=== PATIENT | female | born 1970 | race Caucasian/White ===

== ENCOUNTER 2016-11-21 14:28 | Emergency (ER) | payer MEDICAID ==
[~2016-11-21] VITALS: Ht 167.6 cm; Wt 86.2 kg
--- NOTE | 2016-11-21 14:45 | Emergency Room Report ---
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 PT REPORTS HEADACHE, L SHOULDER PAIN, AND UPPER BACK PAIN R/T FALL. PT DENIES LOC. 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 N Clinical Suspician of Infection? N Mental Status: 1 - Regular (Normal Baseline) Sepsis Risk:Low Sepsis Risk Have you (or family members/close friends) recently traveled outside the [place]? N If Yes, where/when: Have you had exposure to infectious disease within the past month? N TB? Other? Specify: ALLERGIES Coded Allergies: No Known Allergies (11/21/16) History Medical History General More? 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 Social History Smoking Hx Smoker: Unknown if Ever Smoked Tobacco: No Alcohol Alcohol: No Review of Systems All Other Systems Reviewed and Negative Musculoskeletal see HPI Psychiatric/Neurological pre-existing deficit Physical Exam Vital Signs Vital Signs Date Time Temp Pulse Resp B/P Pulse O2 O2 Flow FiO2 Ox Delivery Rate 11/21 1545 18 11/21 1544 78 20 113/57 98 11/21 1430 98.6 90 18 112/71 100 General Appearance normal appearance, WD/WN, no apparent distress (deaf; 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 No: respiratory distress, tender on palpation, use of accessory muscles, pain on inspiration, pain on expiration, productive cough, non productive cough. Lung Sounds bilateral: normal breath sounds, lungs clear. Cardiovascular normal exam, regular rate/rhythm, no peripheral edema, no gallop, no JVD, no murmur, no rub, normal peripheral pulses Gastrointestinal normal bowel sounds, normal exam, non tender, soft, no organomegaly, no pulsatile mass, abnormal bowel sounds, no guarding, no rebound Back normal inspection, no CVA tenderness, no vertebral tenderness, bowel/ bladder continent, strt leg raising(L)-NML, strt leg raising(R)-NML Extremities pelvis stable, subjective tenderness, left shoulder, but with excellent ROM and writes easily with her left hand. No crepitus, deformities, or stepoffs. , FROM all major joints, no rotation or shortening. Strength 5 Upper Ext (L), 5 Upper Ext (R), 5 Lower Ext (L), 5 Lower Ext (R) Neurologic alert (deaf baseline), normal exam, no motor/sensory deficits, oriented x 3 Glascow Coma Scale Glascow Coma Scale Response Value EYE response: 4 Spontaneously 4 MOTOR response: 6 OBEYS 6 VERBAL response: 5 Oriented & Converses 5 Total 15 Skin intact, normal color, warm/dry Medical Decision Making LABS/Meds/Orders Pt receiving controlled substance in ED? No Jono was queried for this patient? Yes Reference #: [id number] Risks/benefits of using a controlled substance for treatment were discussed w/pt by me Results/Orders Current Medication Orders Sig/Mohit Start time Last Medication Dose Route Stop Time Status Admin Ketorolac 0 .STK-MED ONE 11/21 1542 DC Tromethamine .ROUTE Ketorolac 60 MG ONCE ONE 11/21 1515 DC 11/21 Tromethamine IM 11/21 1516 1545 Orders Procedure Date/time Status DIET-NOTHING BY MOUTH 11/[address] SCAN REQ 11/[address] SCAN REQ 11/[address] HEAD REQ 11/[address] SCAN REQUEST 11/21 1430 Complete XRAY/CT/US XRAY/CT/US XRAY chest, shoulder, upper arm XR interpretation by reviewed by me, discussed w/radiologist Xray Results fx left ribs 9,10,11,[address] scan but not seen on plain films per Dr. Harris; shoulder, pelvis, humerus neg CT head, C-spine, T-spine, L-spine CT interpretation by reviewed by me, discussed w/radiologist Time results known: 153 CT Results Fx of L1 transverse process seen on T spine CT; will scan through L spine (FX L1-4 L xv processes) Progress ED Progress Notes Date 11/21/16 Time 1538 Comment C collar removed as C spine negative; kept logroll only due to L1 transverse process Fx noted on T spine CT per d/w radiologist; will scan through L spine. Departure Departure Time of Disposition 170 Disposition DC Home or Self Care(routine) Clinical Impression Primary Impression: Multiple fractures of ribs, left side, initial encounter for closed fracture Secondary Impressions: Fracture of transverse process of lumbar vertebra Qualifiers: Encounter type: initial encounter Fracture type: closed Qualified Code: S32.008A - Other fracture of unspecified lumbar vertebra, initial encounter for closed fracture Condition STABLE Referrals Doug WHITESIDE,Zeferino Acosta Patient Instructions DI for Rib Fracture, DI for Transverse Process Fracture Additional Instructions See Dr. Camacho in 1-2 days to recheck; Rx Percocet Discharge Counseling Counseled pt/family regarding diagnosis, test results, R/B of controlled subst., medications/RX, home care, follow up needs Prescriptions Current Visit Scripts OXYCODONE HCL/ACETAMINOPHEN (Percocet 7.5-325 MG Tablet) 1 TAB PO Q6HP PRN pain #20 TAB ED Critical Care Critical Care No at 170
--- OUTSIDE RECORDS SUMMARY | 2016-11-21 15:02 | External Medical Summary Rpt ---
Demographics Home Phone Preferred Language Sami Marital Status Unknown Mosque Affiliation Unknown Race Unknown Ethnic Group Unknown Author Author , Organization [employer] Address Unknown Phone Unavailable Care Team Providers Care Java Web Architect Name Role Phone DANICA LASHAE, DANICA Unavailable Unavailable LASHAE [employer] Unavailable Unavailable INC, [employer] [facility], Unavailable Unavailable [facility], [facility], [facility], Unavailable Unavailable [facility], [facility] Unavailable Unavailable LABORATORI, 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 Unavailable Unavailable LABORATORI, 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, [facility] AND Unavailable Unavailable [facility] Unavailable Unavailable [facility] Unavailable Unavailable [facility], [facility] Unavailable Unavailable [facility] & Unavailable Unavailable CRITICAL, [facility] JOHNSON BENITA, JOHNSON Unavailable Unavailable BENITA [facility] Unavailable Unavailable PHARMACY, [facility] BRIDGES AIDE, BRIDGES Unavailable Unavailable AIDE WILLS JAM, WILLS JAM Unavailable Unavailable RIZZO TEN, RIZZO TEN Unavailable Unavailable SALINAS CAR, SALINAS Unavailable Unavailable CAR [facility], Unavailable Unavailable [facility] Unavailable Unavailable INC, [facility] Unavailable Unavailable INC, [facility] Unavailable Unavailable [facility] Unavailable Unavailable PRACTI, [facility] Unavailable Unavailable [facility], [facility], Unavailable Unavailable [facility] CHAVA AIDE, CHAVA Unavailable Unavailable AIDE HERNANDO GIN, HERNANDO Unavailable Unavailable [facility], Unavailable [facility]available [facility], Unavailable [facility]available [facility] KATHYA DELORIS, KATHYA Unavailable Unavailable DELORIS SANTO TIM, Unavailable Unavailable SANTO TIM ESCOTT EDW, ESCOTT Unavailable Unavailable EDW [place] PAMELA, Unavailable Unavailable MI PAMELA TIMO NANNETTE, Unavailable Unavailable TIMO NANNETTE TIMO NANNETTE, Unavailable Unavailable TIMO NANNETTE FARAGASSO DEV, Unavailable Unavailable FARAGASSO DEV [facility] Unavailable Unavailable [facility]ATION [facility], [facility] BRADY CHRISTIANO, Unavailable Unavailable BRADY CHRISTIANO TEJEDA NAN, TEJEDA Unavailable Unavailable NAN SUMNER ZIA, SUMNER ZIA Unavailable Unavailable NOLAN TYRELL, Unavailable Unavailable NOLAN TYRELL [facility] Unavailable Unavailable [facility], [facility] Unavailable Unavailable [facility], [facility] DEE DEE GRE, DEE DEE GRE Unavailable Unavailable DEE DEE GRE, [facility] GRE Unavailable Unavailable GROSS CR, GROSS CR Unavailable Unavailable FRANK QUINTEN, FRANK Unavailable Unavailable QUINTEN HIGHLAND, HIGHLAND Unavailable Unavailable HIGHLAND LIS, Unavailable Unavailable [facility] Unavailable [facility], [facility] Unavailable Unavailable [facility], [facility] Unavailable Unavailable [facility], [facility] SAAD SARWAT, SAAD Unavailable Unavailable SARWAT RODERICK III, RODERICK Unavailable Unavailable III RODERICK III MIL, Unavailable Unavailable RODERICK III MIL [facility] Unavailable Unavailable [facility]AT, [facility] Unavailable Unavailable MEDICAL G, [facility] BARBARA JUAN, BARBARA JUAN Unavailable Unavailable KOSTELIC JACKI, Unavailable Unavailable KOSTELIC JACKI KOUNS CARIDAD, KOUNS CARIDAD Unavailable Unavailable [facility] # Unavailable Unavailable [id number], [facility] # [id number] [facility] Un[facility] Un[facility] Unavailable Unavailable [facility] TIEN DANILO, TIEN DANILO Unavailable Unavailable ALIVIA FAYETTE URBAN Unavailable Unavailable COGOVT, ALIVIA FAYETTE URBAN COGOVT [facility] Unavailable Unavailable COGOVT, ALIVIA FAYEE URBAN COGOVT AMARO AND, AMARO AND Unavailable Unavailable [facility] Unavailable Unavailable SERVICE, [facility] Unavailable Unavailable SERVICE, [facility] Unavailable Unavailable DEPT, [facility] Unavailable Unavailable DEPT, [facility], Unavailable Unavailable [facility], [facility] SHOSHANA HAM, SHOSHANA HAM Unavailable Unavailable SHOSHANA HAM, SHOSHANA HAM Unavailable Unavailable [facility] Unavailable Unavailable SERVICES, [facility] DOZIER JUAN, DOZIER Unavailable Unavailable JUAN CAMPOS CHRISTIANO, CAMPOS Unavailable Unavailable CHRISTIANO OVERBEE TER, OVERBEE Unavailable Unavailable TER P. CAB, P. CAB Unavailable Unavailable MADISYN RYA, MADISYN Unavailable Unavailable RYA [facility], Un[facility] Unavailable [facility] PICKLESIMER JR ORESTES, Unavailable Unavailable [facility] ANDRIA BILLY, ANDRIA Unavailable Unavailable BILLY ANDRIA BILLY, ANDRIA Unavailable Unavailable BILLY RAINS ALL, RAINS ALL Unavailable Unavailable [facility], [facility] Unavailable [facility] Unavailable Unavailable [facility], Unavailable Unavailable [facility] ORR CHR, ORR CHR Unavailable Unavailable MERLIN MAR, MERLIN MAR Unavailable Unavailable [facility], [facility] Unavailable Unavailable NETWORK, [facility] Unavailable Unavailable NETWORK, [facility], Unavailable Unavailable [facility], [facility] Unavailable Unavailable HARRISON ELIGIO, HARRISON Unavailable Unavailable ELIGIO TIKHTMAN MONA, Unavailable Unavailable TIKHTMAN MONA [facility] Unavailable Unavailable ASSIST, [facility], Unavailable Unavailable [facility] Unavailable Unavailable [place] [facility] VORKPOR JERI, VORKPOR Unavailable Unavailable JERI VORKPOR JERI, VORKPOR Unavailable Unavailable JERI [facility] # Unavailable Unavailable [id number], [facility] # [id number] PALACIOS, PALACIOS Unavailable Unavailable RANI IV ALL, Unavailable Unavailable RANI IV ALL WILP THE, WILP THE Unavailable Unavailable Purpose Continuity of Care Document - 02-20-2002 through 2016 Problems Code Diagnosis DOS Provider Status F39 Unspecified 11-09-2016 mood [affective] disorder G25.0 Essential 11-09-2016 tremor G40.909 Epilepsy, 11-09-2016 unspecified , not intractable , without status epilepticus H91.3 Deaf 11-09-2016 nonspeaking , not elsewhere classified M25.511 Pain in 11-09-2016 right shoulder N64.4 Mastodynia 11-09-2016 R51 Headache 11-09-2016 S00.03XA Contusion 11-09-2016 of scalp, initial encounter S01.01XA Laceration 11-09-2016 without foreign body of scalp, initial encounter Z86.61 Personal 11-09-2016 history of infections of the central nervous system Z87.820 Personal 11-09-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 R45.851 Suicidal 11-02-2016 ideations F63.9 Impulse 10-06-2016 disorder, unspecified S51.811A Laceration 10-06-2016 without foreign body of right forearm, initial encounter S51.812A Laceration 10-06-2016 without foreign body of left forearm, initial encounter X78.9XXA Intentional 10-06-2016 self-harm by unspecified sharp object, initial encounter Z23 Encounter 10-06-2016 for immunizatio n Z72.89 Other 10-01-2016 problems related to lifestyle R023TYI INTENTIONAL 10-01-2016 [facility] SELF-HARM PHYSICIANS UNS SHARP ASSIST OBJECT INIT ENC Z048 ENCOUNTER 10-01-2016 [facility] EXAM & PHYSICIANS OBSERVATION ASSIST OTHER SPEC REASONS R42 Dizziness 08-25-2016 and giddiness [id number] UNSPECIFIED 08-22-2016 ALIVIA FAYETTE INJURY OF URBAN HEAD COGOVT INITIAL ENCOUNTER J38505 EPILEPSY 08-08-2016 [facility] INTRACT W/O STATUS EPILEPTICUS T40994 PAIN IN 08-08-2016 [facility] [place] LEFT HAND [facility] [id number] UNSPECIFIED 08-08-2016 [facility] INJURY [facility] WRIST HAND FINGERS INITIAL E73EYSY UNSPECIFIED 08-08-2016 [facility] IN[facility] SERV ENCOUNTER Q32626 OTHER LONG 08-08-2016 [facility] CURRENT DRUG THERAPY Z309 ENCOUNTER 06-15-2016 [facility] FOR PRIMARY CONTRACEPTI CARE, [facility] VE MANAGEMENT UNS A90269 PRIMARY 01-14-2016 [facility] TIS RIGHT [place] SHOULDER K49723 PAIN IN 01-14-2016 [facility] SHOULDER ASSOC V31944 ENCOUNTER 12-08-2015 [facility] INVENTORY CONTROL CLERK EXAM [facility] W/O ABNORMAL FIND Z302 ENCOUNTER 12-08-2015 [facility] FOR [facility]IMARY STERILIZAT[facility] ON M48906 LOC-REL SX 09-28-2015 [facility] W/CPS NOT MEDICAL G INTRACT W/O SE R569 UNSPECIFIED 09-28-2015 [facility] CONVULSIONS MEDICAL G R05 COUGH 09-26-2015 [facility] R0602 SHORTNESS 09-24-2015 [facility] [place] OF BREATH RADIOLOGY K8020 CALCULUS GB 09-23-2015 [facility] [place] W/O RADIOLOGY CHOLECYSTIT IS W/O OBSTRUCTION I13592 EPILEPSY 09-21-2015 [facility] UNS NANNETTE INTRACTABLE W/O STATUS EPILEPTICUS R9401 ABNORMAL 09-21-2015 [facility] ELECTROENCE NANNETTE PHALOGRAM EEG Z3002 COUNSELING 06-19-2015 [facility] INSTRUCT PRIMARY NATURAL FAM CARE, [facility] PLAN AVOID PREG R4182 ALTERED 04-01-2015 ALIVIA FAYETTE MENTAL URBAN STATUS COGOVT UNSPECIFIED Z008 ENCOUNTER 04-01-2015 [facility] N EMERGENCY GENERAL SERV EXAMINATION X00788 PAIN IN 03-23-2015 [facility] UNSPECIFIED PRIMARY SHOULDER CARE, [facility] M609 MYOSITIS 03-19-2015 [facility] U[facility]PECIF[facility] M791 MYALGIA 03-19-2015 [facility] 38346 GENERALIZED 01-27-2015 [place] ANXIETY PRIMARY DISORDER CARE, [facility] 78681 UNSPEC 01-27-2015 [facility] EPILEPSY PRIMARY WITHOUT CARE, [facility] MENTION INTRACT EPILEPSY 3899 UNSPECIFIED 01-23-2015 [facility] LOSS 7802 SYNCOPE AND 01-23-2015 [place] [facility]SE [facility] 30981 OTHER 01-23-2015 [facility] 7804 DIZZINESS 01-23-2015 [facility] GIDDINESS 85819 OTHER 01-18-2015 [place] [facility] CONDITIONS SERV OF BRAIN [facility]OUND[facility] 4371 OTH 01-18-2015 [place] [facility] GENERALIZED SERV ISCHEMIC [facility] [place] CEREBROVASC ULAR DISEASE 02583 ALTERED 01-18-2015 ALIVIA FAYETTE MENTAL URBAN STATUS COGOVT 7840 HEADACHE 01-18-2015 ANDRIA BILLY 83675 LOC-REL 12-12-2014 [facility] EPILEPSY & NANNETTE ES W/SPS W/INTRACTAB LE EPIL V700 ROUTINE 12-12-2014 [facility] GENERAL NANNETTE MEDICAL EXAM@HEALTH CARE FACL 68572 PAIN IN 12-09-2014 [facility] [place] JOINT, RADIOLOGY SHOULDER REGION 7241 PAIN IN 12-09-2014 [facility] [place] THORACIC RADIOLOGY SPINE 66582 OBESITY, 12-01-2014 [place] PAIN UNSPECIFIED CARE & [facility] 7242 LUMBAGO 12-01-2014 [place] [facility] & [facility] V7109 OBSERVATION 12-01-2014 [place] PAIN OF OTHER CARE & SUSPECTED [facility] CONDITION 00461 NONSPECIFIC 11-20-2014 [facility] ABNORMAL [facility] PHALOGRAM 54681 IRRITABILIT 11-20-2014 [facility] Y [facility] V154 PERS HX 11-03-2014 [facility] FOR PSYCHOLOGIC PUBLIC HLTH AL TRAUMA PRS [facility] 2724 OTHER AND 09-26-2014 [facility] UNSPECIFIED PRIMARY CARE, [facility] HYPERLIPIDE GEOVANNA V2504 CNSL&INSTRC 09-17-2014 [facility] NATURAL FAM PLANNG AVOID PREG V258 OTHER 09-16-2014 [place] SPECIFIED PRIMARY CONTRACEPTI CARE, [facility] VE MANAGEMENT 7295 PAIN IN 08-15-2014 [facility] [place] SOFT RADIOLOGY TISSUES OF LIMB 8290 CLOSED 08-15-2014 [place] CO FRACTURE OF AMBULANCE SERVICE UNSPECIFIED BONE 83184 CONTUSION 08-15-2014 [facility] OF SH[facility]ER [facility] REGION MEDICAL 25063 CONTUSION 08-15-2014 [facility] JERI MULTIPLE SITES SHOULDER&UP PER ARM E9179 OTHER 08-15-2014 [facility]I STRIKING AGAINST W/WO SUBSEQUENT FALL 5990 URINARY 02-17-2014 [place] TRACT PRIMARY INFECTION CARE, [facility] SITE NOT SPECIFIED 7881 DYSURIA 02-17-2014 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 54376 URINARY 02-17-2014 [facility] FREQUENCY 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I 92152 02-17-2014 [facility] ION SER 97465 GEN CONVUL 02-09-2014 [facility] EPI[facility] PULMONARY & W/O MENTION CRITICAL INTRACT EPILEPSY 2762 ACIDOSIS 02-08-2014 [facility] 44981 DEHYDRATION 02-08-2014 [facility] V1581 PERS HX 02-08-2014 [facility] NONCOMPLIAN [facility] CE W/MED TX HOSP PRS [facility] 7197 DIFFICULTY 10-06-2013 HOME IN WALKING CONVALESCEN T [facility] INC 8249 UNSPECIFIED 10-06-2013 HOME OPEN CONVALESCEN FRACTURE OF T AIDS INC ANKLE V7241 08-27-2013 [facility] EXAMINATION [facility], [facility] OR TEST NEGATIVE RESULT 71499 PAIN IN 08-12-2013 [facility] H[facility] JOINT, ANKLE AND FOOT 90232 PAIN IN 06-04-2013 [place] JOINT, ORTHOPEDIC LOWER LEG ASSOCIAT 8441 SPRAIN AND 06-04-2013 [facility] STR[facility] OF ORTHOPEDIC MCL OF KNEE ASSOCIAT 21155 CONTUSION 05-31-2013 [place] OF THIGH PRIMARY CARE, [facility] V2509 OTH GENERAL 05-31-2013 [place] PRIMARY CNSL&ADVICE CARE, [facility] CONTRACEPT MANAGEMENT 87440 RESTLESS 05-17-2013 [place] LEGS PRIMARY SYNDROME CARE, [facility] 3569 UNSPEC 05-17-2013 [place] HEREDIT&IDI PRIMARY OPATHIC CARE, [facility] PERIPHERAL NEUROPATHY 5589 OTH&UNSPEC 05-17-2013 [place] NONINFECTIO PRIMARY US CARE, 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 PROSTH INC W/O MENTION COMP 8244 CLOSED 03-12-2013 [place] BIMAL[facility]AR [facility]OPEDIC FRACTURE ASSOCIAT 20977 DYSARTHRIA 02-08-2013 [facility] V5869 LONG-TERM 02-08-2013 [facility] USE OF OTHER MEDICATIONS 14884 OTHER 11-06-2012 [facility] [place] NONSPECIFIC RADIOLOGY ABNORMAL FINDING OF LUNG FIELD 03336 HYPOXEMIA 11-06-2012 [facility] 21340 HYPERTENSIO 11-06-2012 [facility] N NEC REGIONAL FAMILY PRACTI E8889 UNSPECIFIED 11-06-2012 [facility] FALL [facility] FAMILY PRACTI 3384 CHRONIC 11-05-2012 [facility] PAIN REGIONAL SYNDROME MEDICAL CENTE 8248 UNSPECIFIED 11-02-2012 [place] CLOSED PRIMARY FRACTURE OF CARE, [facility] ANKLE 8246 CLOSED 10-29-2012 [facility] EMERGENCY R FRACTURE SERVICES E8859 FALL FROM 10-29-2012 [facility] OTHER EMERGENCY SLIPPING SERVICES TRIPPING OR STUMBLING V4973 LOWER LIMB 10-29-2012 [facility] AMPUTATION, EMERGENCY FOOT SERVICES 17461 CLOSED 10-17-2012 [place] FRACTURE OF ORTHOPEDIC SHAFT OF ASSOCIAT FIBULA 7812 ABNORMALITY 07-12-2012 [place] OF GAIT ORTHOPEDIC ASSOCIAT 1121 CANDIDIASIS 07-10-2012 [place] OF VULVA PRIMARY AND VAGINA CARE, [facility] 6235 LEUKORRHEA 07-10-2012 [facility] NOT ESOTERIC SPECIFIED LABORATORI INFECTIVE V7231 ROUTINE 07-10-2012 [facility] GYNECOLOGIC PRIMARY AL CARE, [facility] EXAMINATION V762 SCREENING 07-10-2012 [place] FOR PRIMARY MALIGNANT CARE, [facility] NEOPLASM OF THE CERVIX 6260 ABSENCE OF 06-11-2012 [facility] MENSTRUATIO LABS, [facility] N 93875 SEC 04-12-2012 [place] LOCALIZED ORTHOPEDIC OSTEOARTHRO ASSOCIAT SIS SHOULDER REGION 64840 COMPLETE 04-12-2012 [place] RUPTURE OF ORTHOPEDIC ROTATOR ASSOCIAT CUFF V0481 NEED 04-09-2012 [place] PROPHYLACTI PRIMARY C CARE, [facility] VACCINATION &INOCULATIO N FLU 7260 ADHESIVE 01-19-2012 [facility] GRE CAPSULITIS OF SHOULDER 00332 EFFUSION OF 01-12-2012 [facility] SHOULDER OPEN MRI JOINT 37869 UNSPEC 01-12-2012 [facility] DISORDERS OPEN MRI BURSAE&TEND ONS SHOULDER REGION 8406 SUPRASPINAT 01-12-2012 [facility] US SPRAIN OPEN MRI AND STRAIN 92082 COMA 12-22-2011 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 20179 SCOLIOSIS , 10-03-2011 [facility]ATH[facility] OPEN MRI 8970 TRAUMAT AMP 09-13-2011 RESP A CARE LEG UNILAT INC BELW KNEE W/O COMP 01646 CLOSED 09-01-2011 DEE DEE GRE FRACTURE OF UNSPECIFIED PART OF HUMERUS 2662 OTHER 06-23-2011 [facility] B-COMPLEX HEALTH DEPT DEFICIENCIE S V2549 SURVEILLANC 06-23-2011 [facility] E OTH PREV HEALTH DEPT PRSC CONTRACEPT METHOD V8533 BODY MASS 06-23-2011 [facility] INDEX HEALTH DEPT 33.0-33.9 ADULT 9592 INJURY 05-29-2011 [place] [facility] OTHER&UNSPE SERV CIFIED FOUNDATIO SHOULDER&UP PER ARM V5411 AFTERCARE 05-29-2011 [place] [facility] HEALING SERV TRAUMATIC [facility] FRACTURE UPPER ARM 02573 PAIN IN 05-25-2011 [facility] PA JOINT, AMBULANCE UPPER ARM SERVICE 7869 OTH 05-25-2011 [place] [facility]ICAL SYMPTOMS SERV INVOLVING FOUNDATIO RESPIRATORY SYSTEM&CHES T [address]225[address] CLOSED 05-25-2011 [place] [facility] FRACTURE OF SERV SURGICAL FOUNDATIO NECK OF HUMERUS 57636 OTHER WRIST 05-25-2011 [place] [facility] SPRAIN AND SERV STRAIN [facility]AT[facility] 11253 CLOSED 04-16-2011 [facility] UNSPEC PART UPPER END HUMERUS 13130 OTHER 01-07-2011 [facility] FATIGUE NETWORK V3000 SINGLE 02-22-2002 [facility] PEDIA W/O Medications Na ND Rx Da Fi Fi Am Da Di Ph RX Ph St me C No te ll ll ou ys ag ar # ys at rm s nt no ma ic us Or Da si cy ia de te s n re d IB 55 05 06 90 30 00 KR Ac UP 11 -1 -0 .0 00 OG ti RO 10 6- 9- 00 06 ER ve FE 68 20 20 14 N 40 17 17 99 PH 80 5 66 AR 0 MA MG CY TA L- BL 76 ET 8 RI 68 05 06 30 30 00 KR Ac SP 38 -1 -0 .0 00 OG ti ER 20 5- 9- 00 06 ER ve ID 11 20 20 14 ON 51 17 17 99 PH E 4 65 AR 2 MA MG CY TA L- BL 76 ET 8 AL 65 05 05 30 30 00 KR Ac IM 16 -0 -2 .0 00 OG ti ID 20 1- 6- 00 06 ER ve ON 54 20 20 14 E 41 17 17 99 PH 50 0 68 AR MA MG CY TA L- BL 76 ET 8 DI 68 05 05 90 30 00 KR Ac VA 38 -0 -2 .0 00 OG ti LP 20 3- 6- 00 06 ER ve RO 31 20 20 16 EX 50 17 17 46 PH 1 50 AR SO MA D CY ER L- 50 76 0 8 MG TA B IB 55 04 05 90 30 00 KR Ac UP 11 -1 -1 .0 00 OG ti RO 10 9- 2- 00 06 ER ve FE 68 20 20 14 N 40 17 17 99 PH 80 5 66 AR 0 MA MG CY TA L- BL 76 ET 8 LA 68 04 05 60 30 00 KR Ac MO 38 -1 -0 .0 00 OG ti TR 20 1- 5- 00 06 ER ve IG 00 20 20 16 IN 81 17 17 35 PH E 0 78 AR 10 MA 0 CY MG L- TA 76 BL 8 ET RI 68 04 05 30 30 00 KR Ac SP 38 -1 -0 .0 00 OG ti ER 20 1- 5- 00 06 ER ve ID 11 20 20 14 ON 51 17 17 99 PH E 4 65 AR 2 MA MG CY TA L- BL 76 ET 8 AL 65 04 04 30 30 00 KR Ac IM 16 -0 -2 .0 00 OG ti ID 20 4- 8- 00 06 ER ve ON 54 20 20 16 E 41 17 17 85 PH 50 0 16 AR MA MG CY TA L- BL 76 ET 8 TO 68 04 04 60 30 00 KR Ac PI 38 -0 -2 .0 00 OG ti RA 20 1- 8- 00 06 ER ve MA 14 20 20 11 TE 11 17 17 85 PH 4 86 AR 20 MA 0 CY MG L- TA 76 BL 8 ET DI 68 03 04 90 30 00 KR Ac VA 38 -1 -1 .0 00 OG ti LP 20 6- 4- 00 06 ER ve RO 31 20 20 16 EX 50 17 17 46 PH 1 50 AR SO MA D CY ER L- 50 76 0 8 MG TA B LA 68 03 04 60 30 00 KR Ac MO 38 -1 -0 .0 00 OG ti TR 20 3- 7- 00 06 ER ve IG 00 20 20 16 IN 80 17 17 35 PH E 1 78 AR 10 MA 0 CY MG L- TA 76 BL 8 ET RI 68 03 04 30 30 00 KR Ac SP 38 -1 -0 .0 00 OG ti ER 20 1- 7- 00 06 ER ve ID 11 20 20 11 ON 51 17 17 85 PH E 4 87 AR 2 MA MG CY TA L- BL 76 ET 8 AL 65 03 03 30 30 00 KR Ac IM 16 -0 -3 .0 00 OG ti ID 20 5- 1- 00 06 ER ve ON 54 20 20 13 E 41 17 17 24 PH 50 0 43 AR MA MG CY TA L- BL 76 ET 8 NA 00 03 03 28 14 00 KR Ac AL 09 -0 -3 .0 00 OG ti OX 31 6- 1- 00 06 ER ve EN 00 20 20 16 60 [address] 1 43 AR MA 50 CY 0 MG L- 76 TA 8 BL ET VALENTIN 55 02 03 9. 9 00 KR Ac MA 11 -2 -1 00 00 OG ti TR 10 2- 7- 0 06 ER ve IP 29 20 20 13 TA 30 17 17 24 PH N 9 44 AR VALENTIN MA CC CY 10 L- 0 76 MG 8 TA BL ET TO 68 02 03 60 30 00 KR Ac PI 38 -0 -1 .0 00 OG ti RA 20 9- 0- 00 06 ER ve MA 14 20 20 11 TE 11 17 17 85 PH 4 86 AR 20 MA 0 CY MG L- TA 76 BL 8 ET LA 68 02 03 60 30 00 KR Ac MO 38 -1 -1 .0 00 OG ti TR 20 0- 0- 00 06 ER ve IG 00 20 20 08 IN 81 17 17 62 PH E 0 77 AR 10 MA 0 CY MG L- TA 76 BL 8 ET RI 68 02 03 30 30 00 KR Ac SP 38 -1 -1 .0 00 OG ti ER 20 0- 0- 00 06 ER ve ID 11 20 20 11 ON 51 17 17 85 PH E 4 87 AR 2 MA MG CY TA L- BL 76 ET 8 AL 65 02 03 30 30 00 KR Ac IM 16 -0 -0 .0 00 OG ti ID 20 3- 3- 00 06 ER ve ON 54 20 20 13 E 41 17 17 24 PH 50 0 43 AR MA MG CY TA L- BL 76 ET 8 DI 68 01 02 90 30 00 KR Ac VA 38 -2 -2 .0 00 OG ti LP 20 6- 4- 00 06 ER ve RO 31 20 20 11 EX 50 17 17 85 PH 1 88 AR SO MA D CY ER L- 50 76 0 8 MG TA B IB 55 01 02 90 30 00 KR Ac UP 11 -2 -1 .0 00 OG ti RO 10 2- 7- 00 06 ER ve FE 68 20 20 11 N 40 17 17 18 PH 80 5 82 AR 0 MA MG CY TA L- BL 76 ET 8 LA 68 01 02 60 30 00 KR Ac MO 38 -0 -0 .0 00 OG ti TR 20 5- 3- 00 06 ER ve IG 00 20 20 08 IN 81 17 17 62 PH E 0 77 AR 10 MA 0 CY MG L- TA 76 BL 8 ET RI 68 01 02 30 30 00 KR Ac SP 38 -0 -0 .0 00 OG ti ER 20 5- 3- 00 06 ER ve ID 11 20 20 11 ON 51 17 17 85 PH E 4 87 AR 2 MA MG CY TA L- BL 76 ET 8 TO 68 01 02 60 30 00 KR Ac PI 38 -0 -0 .0 00 OG ti RA 20 5- 3- 00 06 ER ve MA 14 20 20 11 TE 11 17 17 85 PH 4 86 AR 20 MA 0 CY MG L- TA 76 BL 8 ET AL 65 01 02 30 30 00 KR Ac IM 16 -0 -0 .0 00 OG ti ID 20 5- 3- 00 06 ER ve ON 54 20 20 13 E 41 17 17 24 PH 50 0 43 AR MA MG CY TA L- BL 76 ET 8 VALENTIN 55 01 02 9. 9 00 KR Ac MA 11 -0 -0 00 00 OG ti TR 10 5- 3- 0 06 ER ve IP 29 20 20 13 TA 30 17 17 24 PH N 9 44 AR VALENTIN MA CC CY 10 L- 0 76 MG 8 TA BL ET ME 59 01 02 1. [address] 76 -1 -0 00 00 UE ti OX 24 1- 3- 0 00 GR ve YP 53 20 20 28 RO 80 17 17 08 S GE [address] DE ER LY ON E PH 15 AR 0 MA MG CY /M L DI 68 12 01 90 30 00 KR Ac VA 38 -2 -2 .0 00 OG ti LP 20 6- 0- 00 06 ER ve RO 31 20 20 11 EX 50 16 17 85 PH 1 88 AR SO MA D CY ER L- 50 76 0 8 MG TA B IB 55 12 01 90 30 00 KR Ac UP 11 -2 -2 .0 00 OG ti RO 10 6- 0- 00 06 ER ve FE 68 20 20 11 N 40 16 17 18 PH 80 5 82 AR 0 MA MG CY TA L- BL 76 ET 8 AL 65 12 01 30 30 00 KR Ac IM 16 -0 -0 .0 00 OG ti ID 20 9- 9- 06 ER ve ON 54 20 20 13 E 41 16 17 24 PH 50 0 43 AR MA MG CY TA L- BL 76 ET 8 TO 68 12 01 60 30 00 KR Ac PI 38 -0 -0 .0 00 OG ti RA 20 9- 9- 00 06 ER ve MA 14 20 20 11 TE 11 16 17 85 PH 4 86 AR 20 MA 0 CY MG L- TA 76 BL 8 ET LA 68 02 04 5 60 30 KR 60 TI Ac MO 38 -2 -1 0. OG 86 KH ti TR 20 3- 8- 00 ER 27 TM ve IG 00 20 20 0 7 AN IN 81 16 16 PH E 0 AR AL 10 MA EX 0 CY AN MG # DE R TA 24 J BL 76 ET 8 TO 68 12 04 5 12 30 KR 60 TI Ac PI 38 -1 -1 00 OG 72 KH ti RA 20 7- 8- .0 ER 83 TM ve MA 14 20 20 00 9 AN TE 00 15 16 PH 5 AR AL 10 MA EX 0 CY AN MG # DE R TA 24 J BL 76 ET 8 ME 59 04 04 3 10 90 BL [address] 76 -1 -1 .0 UE 02 ER ti OX 24 1- 1- 00 GR 34 BE ve YP 53 20 20 E RO 80 16 16 S TE GE [address] DE I ER LY ON E PH 15 AR 0 MA MG CY /M L RI 68 12 04 11 60 30 KR 60 TI Ac SP 38 -1 -1 0. OG 72 KH ti ER 20 7- 1- 00 ER 83 TM ve ID 11 20 20 0 8 AN ON 41 15 16 PH E 4 AR AL 1 MA EX MG CY AN # DE TA R BL 24 J ET 76 8 TO 68 04 04 2 60 30 KR 60 OV Ac PI 38 -1 -1 0. OG 96 ER ti RA 20 1- 1- 00 ER 14 BE ve MA 14 20 20 0 6 E TE 11 16 16 PH TE 4 AR RR 20 MA I 0 CY MG # TA 24 BL 76 ET 8 LA 68 04 04 2 12 30 KR 60 OV Ac MO 38 -1 -1 00 OG 96 ER ti TR 20 1- 1- .0 ER 14 BE ve IG 00 20 20 00 7 E IN 60 16 16 PH TE E 1 AR RR 25 MA I CY MG # TA 24 BL 76 ET 8 CI 55 04 04 0 14 7 KR 60 OV Ac AL 11 -1 -1 0. OG 96 ER ti OF 10 1- 1- 00 ER 13 BE ve LO 12 20 20 0 4 E XA 70 16 16 PH TE CI 1 AR RR N MA I HC CY L # 50 0 24 MG 76 8 TA B IB 55 04 04 3 90 22 KR 60 BU Ac UP 11 -0 -0 0. OG 95 RK ti RO 10 8- 8- 00 ER 75 E ve FE 68 20 20 0 7 TE N 40 16 16 PH NA 80 5 AR S 0 MA MG CY # TA BL 24 ET 76 8 DI 00 12 04 5 90 30 KR 60 TI Ac VA 83 -1 -0 0. OG 72 KH ti LP 27 7- 3- 00 ER 83 TM ve RO 12 20 20 0 7 AN EX 41 15 16 PH 1 AR AL SO MA EX D CY AN DR # DE R 50 24 J 0 76 MG 8 TA B TO 68 01 10 11 24 30 WA 74 KE Ac PI 38 -1 -1 0. L- 99 DA ti RA 20 8- 0- 00 MA 05 R ve MA 13 20 20 0 RT 7 SA TE 91 11 11 CH 4 PH IN 50 AR MA MG CY # TA BL 10 ET 07 19 Immunization Name Date Route CVX Reacti Commen Provid Is Given on t er Refuse d IIV3 HERNANDO No VACCIN 2011 GIN E SPLIT VIRUS 0.5 ML DOSAGE IM USE Results Labs Lab Lab Date Result Refere Interp Status Commen Order Detail nces retati t Range on Valproate SerPl-mCnc (11-02-2016 10:28) Valproa 65 50-100 complet te 017 ug/mL ed SerPl-m 10:28 Cnc Valproate SerPl-mCnc (10-30-2016 22:00) Valproa 10-30- 65.0 50.0-15 complet te 017 mcg/mL 0.0 ed SerPl-m 22:00 Cnc Procedures Procedure DOS Code Location Performer Comment GROUND A0425 ALIVIA ALIVIA MILEAGE 7 FAYET[place] FAYETTE PER URBAN URBAN STATUTE [facility] [place] MILE AMBULANCE A0429 ALIVIA ALIVIA SERVICE 7 FAYETTE FAYETTE BLS URBAN URBAN EMERGENCY COGOV[place] COGOVT TRANSPORT RADEX 38323 [facility] [place] RODERICK HAND 7 RADIOLOGY III MINIMUM 3 VIEWS COMPREHEN 90630 HINDUISM HINDUISM SIVE 7 HEALTH HEALTH METABOLIC [facility] PANEL COLLECTIO 60223 HINDUISM HINDUISM N VENOUS 7 HEALTH HEALTH BLOOD [facility] ED VENIPUNCT URE DRUG 17297 HINDUISM HINDUISM SCREEN 7 HEALTH HEALTH QUANTITAT [facility] ED HELGA LAMOTRIGI NE DRUG 60606 HINDUISM HINDUISM ASSAY 7 [facility] HEALTH VALPROIC [facility] ED DIPROPYLA CETIC ACID TOTAL THERAPEUT 13072 [facility] IC 7 [facility] TIC/DX INJECTION SUBQ/IM INJECTION J1050 [facility] 7 PRIMARY MED[facility]XYPR [facility] OGESTERON E ACETATE 1 MG RADEX 89979 HINDUISM HINDUISM SHOULDER 6 HEALTH HEALTH COMPLETE [facility] ED MINIMUM 2 VIEWS THERAPEUT 94169 [facility] IC [address] PROPHYLAC CARE, LLC TIC/DX INJECTION SUBQ/IM INJECTION J1050 [place] [address] [facility]XYPR CARE, [facility] OGESTERON E ACETATE 1 MG SBSQ 46539 [facility] 6 [place] HEALTH CARE/DAY MEDICAL 25 G MINUTES RADIOLOGI 13050 [facility] [place] WESTERFIE C 6 RADIOLOGY LD IV ALL EXAMINATI ON CHEST SINGLE VIEW FRONTAL RADIOLOGI 23449 [facility] [place] KOSTELIC C 6 RADIOLOGY JACKI EXAMINAT[place] [address] [facility] [place] DANICA ABDOMEN & 6 RADIOLOGY LASHAE PELVIS W/O CONTRAST MATERIAL RADIOLOGI 09864 [facility] [place] FRANK C 6 RADIOLOGY QUINTEN EXAMINATI [place] [address] [facility] [place] DANICA HEAD/BRAI 6 RADIOLOGY LASHAE N W/O CONTRAST MATERIAL GROUND A0425 ALIVIA ALIVIA MILEAGE 6 FAYETTE LEATHATTE PER URBAN URBAN STATUTE COGOVT COGOVT MILE INITIAL 35028 [facility] INPATIENT 6 NE HEALTH CONSULT MEDICAL NEW/ESTAB G PT 110 MIN AMB A0427 ALIVIA ALIVIA SERVICE 6 FAYETTE FAYETTE ALS URBAN URBAN EMERGENCY COGOVT COGOVT TRANSPORT LEVEL 1 LOCALIZE 73813 TIMO TIMO CEREBRAL 6 NANNETTE NANNETTE SEIZURE CABLE/RAD IO EEG/VIDEO THERAPEUT 43779 ROM[facility] ALFRED IC [address] [facility] TIC/DX INJECTION SUBQ/IM INJECTION J1050 ROM[facility] VILLARREAL 6 [facility]IMARY [facility] OGESTERON E ACETATE 1 MG THERAPEUT 85395 [facility] VILLARREAL IC 6 [facility] TIC/DX INJECTION SUBQ/IM COMPREHEN 81758 [facility] SIVE 5 HINDUISM HINDUISM METABOLIC HOSP HOSP PANEL COLLECTIO 77028 [facility] N VENOUS 5 HINDUISM HINDUISM BLOOD HOSP HOSP VENIPUNCT URE BLOOD 77154 [facility] COUNT 5 HINDUISM HINDUISM COMPLETE HOSP HOSP AUTO&AUTO DIFRNTL WBC DRUG 88848 [facility] ASSAY 5 HINDUISM HINDUISM VALPROIC HOSP HOSP DIPROPYLA CETIC ACID TOTAL GROUND A0425 ALIVIA ALIVIA MILEAGE 5 FAYETTE FAYETTE PER [facility] URBAN STATUTE COGOVT COGOVT MILE AMB A0427 ALIVIA ALIVIA SERVICE 5 FAYETTE FAYETTE ALS URBAN URBAN EMERGENCY COGOVT COGOVT TRANSPORT LEVEL 1 INJECTION J1050 ROMY VILLARREAL 5 PRIMARY MED[facility]XYPR C[facility] OGESTERON E ACETATE 1 MG THERAPEUT 41843 [facility] VILLARREAL IC 5 [facility] LLC TIC/DX INJECTION SUBQ/IM AMB A0427 ALIVIA ALIVIA SERVICE 5 FAYETTE FAYETTE ALS URBAN URBAN EMERGENCY COGOVT COGOVT TRANSPORT LEVEL 1 ECG 32024 [place] NIKHIL ROUTINE 5 MEDICAL NAN ECG SERV W/LEAST FOUNDATIO 12 LDS N I&R ONLY GROUND A0425 ALIVIA ALIVIA MILEAGE 5 FAYETTE FAYETTE PER URBAN URBAN STATUTE COGOVT COGOVT MILE GROUND A0425 ALIVIA ALIVIA MILEAGE 5 FAYETTE FAYETTE PER URBAN URBAN STATUTE COGOVT COGOVT MILE AMB A0427 ALIVIA ALIVIA SERVICE 5 FAYETTE FAYETTE ALS URBAN URBAN EMERGENCY [place] [address] [place] [address] [place] ESCOTT HEAD/BRAI 5 MEDICAL EDW N W/O SERV CONTRAST FOUNDATIO MATERIAL N SBSQ 99607 [facility] 5 NE [facility] CARE/DAY MEDICAL 35 G MINUTES INITIAL 16031 [facility] INPATIENT 5 NE [facility] HOSPITAL CONSULT MEDICAL NEW/ESTAB G PT 55 MIN RADEX 01385 [facility] [place] SALINAS SCAPULA 5 RADIOLOGY CAR COMPLETE RADEX 80687 [facility] [place] SHOULDER 5 RADIOLOGY LD IV ALL COMPLETE [place] [place] [address] [facility] [place] HEAD/BRAI 5 RADIOLOGY LD IV ALL N W/O CONTRAST MATERIAL RADEX 40458 [facility] [place] SALINAS SPINE 5 RADIOLOGY CAR THORACIC 2 VIEWS ELECTROEN 41503 [facility] CEPHALOGR 5 HINDUISM HINDUISM AM W/REC HOSP HOSP AWAKE&ASL EEP URINE 44026 [facility] 5 LABS, [employer] LABS, [employer] TEST VISUAL COLOR CMPRSN METHS INJECTION J1050 LAREDO MERLIN MAR 5 [facility] OGESTERON E ACETATE 1 MG THERAPEUT 54855 LAREDO MERLIN MAR IC 5 [facility] TIC/DX INJECTION SUBQ/IM RADEX 97861 [facility] [place] WILLS SUNITHA HUMERUS 5 RADIOLOGY MINIMUM 2 VIEWS SHOULDER L3660 [facility] GOU[facility] ORTHOSIS 5 DISCOUNT DISCOUNT FIG 8 MEDICAL MEDICAL CANVAS WEBBING PREFAB RADEX 12771 [facility] [place] WILLS JAM SHOULDER 5 RADIOLOGY COMPLETE MINIMUM 2 VIEWS GROUND A0425 [facility] MILEAGE 5 CO CO PER AMBULANCE AMBULANCE STATUTE SERVICE SERVICE MILE AMBULANCE A0429 [facility] SERVICE 5 CO CO BLS AMBULANCE AMBULANCE EMERGENCY SERVICE SERVICE TRANSPORT BILIRUBIN 08357 HINDUISM HINDUISM DIRECT 5 [facility] COMPREHEN 52699 HINDUISM HINDUISM SIVE 5 [facility] METABOLIC [facility] PANEL COLLECTIO 11213 HINDUISM HINDUISM N VENOUS 5 [facility] BLOOD [facility] VENIPUNCT URE THERAPEUT 81885 LAREDO OVERBEE IC [address] PROPHYLAC CARE, LLC TIC/DX INJECTION SUBQ/IM NONEMERGE A0100 [facility] 4 TRANSPORT TRANSPORT ATION; ATION SER TAXI CULTURE 93812 FILIPINO FILIPINO BACTERIAL 4 ESOTERIC 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 LABORATOR QUANTTATI I I VE COLONY COUNT URINE URNLS DIP 82208 ubigrate 4 LABS, LLC LABS, LLC STICK/TAB LET REAGENT AUTO MICROSCOP Y INJECTION J0696 [place] [address] PRIMARY PRIMARY CEFTRIAXO CARE, LLC CARE, LLC NE SODIUM PER 250 MG URINE 26808 [facility] 4 LABS, LLC LABS, LLC TEST VISUAL COLOR [facility] 83138 [facility] 4 MEDICINE DAY SERVICES, MANAGEMEN T > 30 MIN SBSQ 88742 [place] [address] NEUROLOGY RYA CARE/DAY SERVICES 25 MINUTES SBSQ 59861 [place] [address] NEUROLOGY RYA CARE/DAY SERVICES 25 MINUTES INITIAL 48638 [place] [address] MEDICINE CARE/DAY SERVICES, 70 MINUTES INITIAL 58324 [place] [address] NEUROLOGY TIM CARE/DAY CENTER 70 ALIVIA MINUTES SBSQ 74716 [place] [address] PULMONARY JUAN CARE/DAY & 35 CRITICAL MINUTES AMB A0427 [facility] SERVICE 4 CO CO ALS AMBULANCE AMBULANCE EMERGENCY SERVICE SERVICE TRANSPORT LEVEL 1 AMB A0422 [facility] OXYGEN&O2 4 CO CO SUPPLIES AMBULANCE AMBULANCE LIFE SERVICE SERVICE SUSTAININ G SITUATION RADIOLOGI 00075 TING MAGUIRE C 4 JERI JERI ROXIINATI [place] [address] [facility] FRANK HEAD/BRAI 4 RADIOLOGY QUINTEN N W/O CONTRAST MATERIAL GROUND A0425 [facility] MILEAGE 4 CO CO PER AMBULANCE AMBULANCE STATUTE SERVICE SERVICE MILE ECG 90402 VORKPOR VORKPOR ROUTINE 4 JERI JERI ECG W/LEAST 12 LDS I&R ONLY STANDARD K0001 HOME HOME WHEELCHAI 4 CONVALESC CONVALESC R ENT AIDS ENT AIDS INC INC STANDARD K0001 HOME HOME WHEELCHAI 4 CONVALESC CONVALESC R ENT AIDS ENT AIDS INC INC THERAPEUT 38600 [facility] IC 4 PRIMARY PRIMARY PROPHYLAC CARE, [employer] TIC/DX INJECTION SUBQ/IM URINE 97485 [facility] 4 LABS, [employer] TEST VISUAL COLOR CMPRSN METHS DRUG SCR G0434 SHOSHANA HAM SHOSHANA HAM NOT 4 CHROMATOG RAPHIC; ANY NUMBER PT ENC STANDARD K0001 HOME HOME WHEELCHAI 4 CONVALESC CONVALESC R ENT AIDS ENT AIDS INC INC STANDARD K0001 HOME HOME WHEELCHAI 4 CONVALESC CONVALESC R ENT AIDS ENT AIDS INC INC STANDARD K0001 HOME HOME WHEELCHAI 4 CONVALESC CONVALESC R ENT AIDS ENT AIDS INC INC RADIOLOGI 45688 [place] DEE DEE GRE C 3 ORTHOPEDI EXAMINATI C ON KNEE ASSOCIAT 1/2 VIEWS URINE 17676 [facility] 3 LABS, [employer], [employer] TEST VISUAL COLOR CMPRSN METHS INJECTION J1050 [facility] THE 3 PRIMARY MEDROXYPR CARE, LLC OGESTERON E ACETATE 1 MG THERAPEUT 35024 [facility] IC 3 PRIMARY PROPHYLAC CARE, LLC TIC/DX INJECTION SUBQ/IM STANDARD K0001 HOME HOME WHEELCHAI 3 CONVALESC CONVALESC R ENT AIDS ENT AIDS INC INC ORTHOPEDI L3230 [facility] C 3 BRACE BRACE FOOTWEAR PROSTH PROSTH CUSTOM INC INC SHOE DEPTH INLAY EACH FT INSRT L3010 [facility] REMV MOLD 3 BRACE BRACE PT MDL PROSTH PROSTH LNGTUDNL INC INC ARCH SUPP EA STANDARD K0001 HOME HOME WHEELCHAI 3 [facility] ENT AIDS ENT AIDS INC INC STANDARD K0001 HOME HOME WHEELCHAI 3 [facility] R ENT AIDS ENT AIDS INC INC STANDARD K0001 HOME HOME WHEELCHAI 3 [facility] R ENT AIDS ENT AIDS INC INC DRUG 59325 FILIPINO FILIPINO ASSAY 3 ESOTERIC ESOTERIC VALPROIC LABORATOR LABORATOR DIPROPYLA I I CETIC ACID TOTAL RADEX 62620 [place] DEE DEE GRE ANKLE 3 ORTHOPEDI COMPLETE C MINIMUM 3 ASSOCIAT VIEWS STANDARD K0001 HOME HOME WHEELCHAI 3 [facility] R ENT AIDS ENT AIDS INC INC RADEX 97000 [place] DEE DEE GRE ANKLE 3 ORTHOPEDI COMPLETE C MINIMUM 3 ASSOCIAT VIEWS DRUG 53750 FILIPINO FILIPINO ASSAY 3 ESOTERIC ESOTERIC VALPROIC LABORATOR LABORATOR DIPROPYLA I I CETIC ACID TOTAL URINE 27363 [facility] 3 LABS, [employer] LABS, [employer] TEST VISUAL COLOR CMPRSN METHS STANDARD K0001 HOME HOME WHEELCHAI 3 [facility] ENT AIDS ENT AIDS INC INC RADEX 82141 [place] DEE DEE GRE ANKLE 3 ORTHOPEDI COMPLETE C MINIMUM 3 ASSOCIAT VIEWS APPLICATI 57901 [place] DEE DEE GRE ON SHORT 3 ORTHOPEDI LEG CAST C BELOW ASSOCIAT KNEE-TOE COMMODE E0163 HOME HOME CHAIR 3 [facility] MOBILE OR ENT AIDS ENT AIDS INC INC STATIONAR Y W/FIXED ARMS STANDARD K0001 HOME HOME WHEELCHAI 3 [facility] R ENT AIDS ENT AIDS INC INC RADIOLOGI 96022 [facility] MARY JO VAUGHN C 3 RADIOLOGY III MIL EXAMINATI ON CHEST SINGLE VIEW FRONTAL NONINVASI 35416 MICHELLE MICHELLE VE 3 REGIONAL REGIONAL EAR/PULSE MEDICAL MEDICAL OXIMETRY SHILPA MASSEY [facility] [place] ER DETER GROUND A0425 [facility] MILEAGE 3 CO CO PER AMBULANCE AMBULANCE STATUTE SERVICE SERVICE MILE INJECTION J1650 MICHELLE MARTINEZ 3 REGIONAL REGIONAL ENOXAPARI MEDICAL MEDICAL N SODIUM CENTE CENTE 10 MG INJECTION J0690 MICHELLE MARTINEZ 3 REGIONAL REGIONAL CEFAZOLIN MEDICAL MEDICAL SODIUM CENTE CENTE 500 MG INJECTION J2250 MICHELLE MARTINEZ 3 REGIONAL REGIONAL MIDAZOLAM MEDICAL MEDICAL HCL PER CENTE CENTE 1 MG OPEN 84819 MICHELLE MARTINEZ TREATMENT 3 REGIONAL REGIONAL MEDICAL MEDICAL BIMALLEOL CENTE CENTE AR ANKLE FRACTURE BLOOD 94836 MICHELLE MARTINEZ COUNT 3 REGIONAL REGIONAL COMPLETE MEDICAL MEDICAL AUTOMATED CENTE CENTE GONADOTRO 67103 MICHELLE MARTINEZ PIN 3 REGIONAL REGIONAL CHORIONIC MEDICAL MEDICAL CENTE CENTE QUALITATI VE INJECTION J3010 MICHELLE MARTINEZ FENTANYL 3 REGIONAL REGIONAL CITRATE MEDICAL MEDICAL 0.1 MG CENTE CENTE INJECTION J2710 MICHELLE MARTINEZ 3 REGIONAL REGIONAL NEOSTIGMI MEDICAL MEDICAL NE CENTE CENTE METHYLSUL FATE UP TO 0.5 MG BASIC 51202 MICHELLE MARTINEZ METABOLIC 3 REGIONAL REGIONAL PANEL MEDICAL MEDICAL CALCIUM CENTE CENTE TOTAL ANES OPEN 66010 COMMONWEA HARRISON PROC 3 LTH ELIGIO BONES ANESTHESI LOWER A PSC LEG/ANKLE /FOOT NOS INJECTION J1170 MICHELLE MARTINEZ 3 REGIONAL REGIONAL HYDROMORP MEDICAL MEDICAL THAD UP CENTE CENTE TO 4 MG INJECTION J2001 MICHELLE MARTINEZ 3 REGIONAL REGIONAL LIDOCAINE MEDICAL MEDICAL HCL CENTE CENTE INTRAVENO US INFUS 10 MG INJECTION J1100 MICHELLE MARTINEZ 3 REGIONAL REGIONAL DEXAMETHO MEDICAL MEDICAL SONE CENTE CENTE SODIUM PHOSPHATE 1 MG HOSPITAL G0378 MICHELLE MARTINEZ OBSERVATI 3 REGIONAL REGIONAL ON MEDICAL MEDICAL SERVICE CENTE CENTE PER HOUR INJECTION J2405 MICHELLE MARTINEZ 3 REGIONAL REGIONAL ONDANSETR MEDICAL MEDICAL ON HCL CENTE CENTE PER 1 MG INJECTION J0330 MICHELLE MARTINEZ 3 REGIONAL REGIONAL SUCCINYLC MEDICAL MEDICAL HOLINE CENTE CENTE CHLORIDE UP TO 20 MG FLUOROSCO 09385 MICHELLE MARTINEZ PY SPX >1 3 REGIONAL REGIONAL HOUR MEDICAL MEDICAL PHYS/QHP CENTE CENTE TIME RADEX 04236 HINDUISM HINDUISM ANKLE 3 HEALTH HEALTH COMPLETE [facility] MINIMUM 3 VIEWS CLTX 72101 SAMIA ISBELLALLEO 3 EMERGENCY PAMELA LAR ANKLE SERVICES FX W/O MANIPULAT ION THERAPEUT 86170 GIANCARLO PATELTIST IC 3 HEALTH HEALTH PROPHYLAC [facility] TIC/DX INJECTION SUBQ/IM AMB A0427 [facility] SERVICE 3 CO CO ALS AMBULANCE AMBULANCE EMERGENCY SERVICE SERVICE TRANSPORT LEVEL 1 RADIOLOGI 29984 HINDUISM HINDUISM C 3 HEALTH HEALTH EXAMINATI [facility] ON TIBIA & FIBULA 2 VIEWS GROUND A0425 [facility] MILEAGE 3 CO CO PER AMBULANCE AMBULANCE STATUTE SERVICE SERVICE MILE RADIOLOGI 38547 TINO FLORENCEU GRE C 3 ORTHOPEDI EXAMINATI C ON KNEE ASSOCIAT 1/2 VIEWS URINE 50390 ubigrate 3 RELEASEIF TEST VISUAL COLOR CMPRSN METHS CLTX PROX 42149 TINO FLORENCEU GRE 3 ORTHOPEDI FIBULA/SH C FT FX W/O ASSOCIAT MANJ RADIOLOGI 75360 TINO FLORENCEU GRE C 3 ORTHOPEDI EXAMINATI C ON KNEE ASSOCIAT 1/2 VIEWS IADNA 53523 FILIPINO FILIPINO PAPILLOMA 3 ESOTERIC ESOTERIC VIRUS LABORATOR LABORATOR HUMAN I I AMPLIFIED PROBE TQ CYTP C/V 65915 FILIPINO FILIPINO AUTO THIN 3 ESOTERIC ESOTERIC LYR LABORATOR LABORATOR PREPJ SCR I I MNL RESCR PHYS IADNA 20735 FILIPINO FILIPINO TRICHOMON 3 ESOTERIC 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 LABORATOR VAGINALIS I I DIRECT PROBE TQ IADNA 39399 FILIPINO FILIPINO GARDNEREL 3 ESOTERIC ESOTERIC LA LABORATOR LABORATOR VAGINALIS I I DIRECT PROBE TQ IADNA 61394 FILIPINO FILIPINO TRENT 3 ESOTERIC ESOTERIC SPECIES LABORATOR LABORATOR DIRECT I I PROBE TQ THERAPEUT 87193 [facility] IC 3 PRIMARY GIN PROPHYLAC CARE, [facility] TIC/DX INJECTION SUBQ/IM URINE 29837 ubigrate 3 LABS, [employer], [employer] TEST VISUAL COLOR CMPRSN METHS ARTHROCEN 78639 TINO DEE DEE GRE TESIS 2 ORTHOPEDI ASPIR&/IN C J MAJOR ASSOCIAT JT/BURSA W/O US INJECTION J1050 HERNANDO VILLAGOMEZ 2 GIN GIN MEDROXYPR OGESTERON E ACETATE 1 MG MRI ANY 82928 JOIE RASHEED JT UPPER 2 OPEN MRI DELORIS EXTREMITY W/O CONTRAST MATRL RADEX 32887 JOIE LARSEN SHOULDER 2 OPEN MRI AIDE COMPLETE MINIMUM 2 VIEWS URINE 93011 [facility] 2 LABS, [employer] LABS, [employer] TEST VISUAL COLOR CMPRSN METHS COMPREHEN 94544 FILIPINO FILIPINO SIVE 2 ESOTERIC ESOTERIC METABOLIC LABORATOR LABORATOR PANEL I I BLOOD 59810 FILIPINO FILIPINO COUNT 2 ESOTERIC ESOTERIC COMPLETE LABORATOR LABORATOR AUTO&AUTO I I DIFRNTL WBC DRUG 56024 FILIPINO FILIPINO ASSAY 2 ESOTERIC ESOTERIC VALPROIC LABORATOR LABORATOR DIPROPYLA I I CETIC ACID TOTAL RADEX 83830 JOIE RASHEED SPINE 2 OPEN MRI DELORIS THORACIC 2 VIEWS RADEX 50438 JOIE LARSEN SPINE 2 OPEN MRI AIDE LUMBOSACR AL MINIMUM 4 VIEWS COMMODE E0163 RESP A RESP A CHAIR 2 CARE [facility] MOBILE OR STATIONAR Y W/FIXED ARMS URINE 32367 [facility] 2 LABS, [employer] LABS, [employer] TEST VISUAL COLOR CMPRSN METHS INJECTION J3302 DEE DEE GRE DEE DEE GRE 2 TRIAMCINO LONE DIACETATE PER 5 MG ARTHROCEN 83034 DEE DEE GRE DEE DEE GRE TESIS 2 ASPIR&/IN J MAJOR JT/BURSA W/O US RADEX 38857 DEE DEE GRE DEE DEE GRE SHOULDER 2 1 VIEW CYTP 43870 PATHOLOGY PICKLESIM CERV/VAG 2 & ER JR ORESTES AUTO THIN CYTOLOGY LAYER LAB PREP MNL SCREEN INJ J1055 [facility] MDRXYPRGE 2 [facility] DEPT DEPT ACTAT CNTRACPT USE 150 MG IIV3 69779 HERNANDO VILLAGOMEZ VACCINE 2 GIN GIN SPLIT VIRUS 0.[address] [place] [address] [place] NOLAN HEAD/BRAI 1 MEDICAL TYRELL N W/O SERV CONTRAST FOUNDATIO MATERIAL RADEX 39248 [place] ZIA SHOULDER 1 MEDICAL COMPLETE SERV MINIMUM 2 FOUNDATIO VIEWS RADEX 69554 [place] BARBARA JUAN SHOULDER 1 MEDICAL COMPLETE SERV MINIMUM 2 FOUNDATIO VIEWS RADEX 52075 [place] BARBAR[place] JUAN SHOULDER 1 MEDICAL COMPLETE SERV MINIMUM 2 FOUNDATIO VIEWS RADEX 39708 [place] BARBARA JUAN WRIST 1 MEDICAL COMPLETE SERV MINIMUM 3 FOUNDATIO VIEWS AMB A0427 [facility] SERVICE 1 CO CO ALS AMBULANCE AMBULANCE EMERGENCY SERVICE SERVICE TRANSPORT LEVEL 1 GROUND A0425 [facility] MILEAGE 1 CO CO PER AMBULANCE AMBULANCE STATUTE SERVICE SERVICE MILE RADIOLOGI 23635 AYOOB AND AYOOB AND C 1 EXAMINATI ON CHEST SINGLE VIEW FRONTAL RADEX 36039 DEE DEE GRE DEE DEE GRE SHOULDER 1 1 VIEW SEWHO L3960 ADVANCED ADVANCED ABDUCT 1 TECHNOLOG TECHNOLOG PSTN IES INC IES INC AIRPLANE DESN PREFAB W/FIT&ADJ ORTHOTIC 10503 DEE DEE GRE DEE DEE GRE MGMT&ALLISON 1 NJ UXTR LXTR&/TRN K EA 15 CLTX 35744 DEE DEE GRE DEE DEE GRE PROXIMAL 1 HUMERAL FRACTURE W/O MANIPULAT ION RADEX 13555 FARAGASSO FARAGASSO SHOULDER 1 DEV DEV 1 VIEW RADEX 56727 LILLIE A LILLIE A SHOULDER 1 [facility] COMPLETE A A MINIMUM 2 VIEWS INJ J1055 [facility] MDRXYPRGE 1 [facility] DEPT DEPT ACTAT CNTRACPT USE 150 MG BLOOD 16867 SPECTRUM SPECTRUM COUNT 1 LABORATOR LABORATOR COMPLETE Y NETWORK Y NETWORK AUTOMATED DRUG 84958 SPECTRUM SPECTRUM ASSAY 1 LABORATOR LABORATOR VALPROIC Y NETWORK Y NETWORK DIPROPYLA CETIC ACID TOTAL LIPID 49586 SPECTRUM SPECTRUM PANEL 1 LABORATOR LABORATOR Y NETWORK Y NETWORK 25 08630 SPECTRUM SPECTRUM HYDROXY 1 LABORATOR LABORATOR INCLUDES Y NETWORK [place] [address] SPECTRUM SPECTRUM THYROID 1 LABORATOR LABORATOR STIMULATI Y NETWORK Y NETWORK NG HORMONE TSH COMPREHEN 48484 SPECTRUM SPECTRUM SIVE 1 LABORATOR LABORATOR METABOLIC Y NETWORK Y NETWORK PANEL INJ J1055 [facility] MDRXYPRGE 1 [facility] DEPT ACTAT CNTRACPT USE 150 MG INJ J1055 [facility] MDRXYPRGE 1 [facility] DEPT DEPT ACTAT CNTRACPT USE 150 MG [facility] 49648 UNIVERSIT UNIVERSIT DISCHARGE 2 Y OF Y OF DAY [facility] MANAGEMEN PEDIA PEDIA T 30 MIN/< SBSQ HOSP 84827 [facility] 2 Y OF Y OF F/E/M NML [facility] NB AL D PEDIA PEDIA HX&XM NML 30073 [facility] NB INFT 2 Y OF Y OF INITIATIO [facility] N DX&TX PEDIA PEDIA Encounters Encounter Start End Date Code Location Performer Type Date EMERGENCY [address] [facility] ASSIST MODERATE SEVERITY EMERGENCY [address] DEPARTMEN T VISIT MODERATE SEVERITY HOSPITAL [address] [facility] H[facility]UISM - 6 6 [facility] PERIODIC 45743 [place] OVERBEJazmine PREVENTIV [address] MED EST CARE, [facility] PATIENT 40-64YRS OFFICE 64089 [facility] 6 6 PRIMARY T VISIT CARE, [facility] 15 MINUTES [facility]OSP[facility] [place] - 5 5 HINDUISM OUTPATIEN HOSP T EMERGENCY 25217 [facility] 5 5 MONIKA BENITA DEPARTMEN EMERGENCY T VISIT SERV HIGH/URGE NT SEVERITY OFFICE 27655 ROMY VILLARREAL OUTPATIEN 5 5 PRIMARY T [facility]ISIT [facility]ARE, [facility] 15 MINUTES OFFICE 50219 HINDUISM PABLOTMVIC OUTPATIEN 5 5 HEALTH MONA T VISIT MEDICAL 15 GROUP MINUTES OFFICE 12515 ROMY SPRINGER OUTPATIEN 5 5 PRIMARY LIS T VISIT CARE, [facility] 15 MINUTES HOSPITAL [facility] - 5 5 Y OUTPATIEN HOSPITAL T EMERGENCY 56713 UN[facility]ERSIT 5 5 Y [facility]PITAL T VISIT HIGH/URGE NT SEVERITY EMERGENCY 85368 RAINS ALL RAINS ALL DEPT 5 5 VISIT HIGH SEVERITY& THREAT FUN EMERGENCY 80689 ANDRIA ANDRIA DEPT 5 5 BILLY BILLY VISIT HIGH SEVERITY& [facility] OFF[facility] 72992 TIMO TIMO OUTPATIEN 5 5 NANNETTE NANNETTE T NEW 20 MINUTES EMERGENCY 94021 [facility] ORR CHR DEPT 5 5 PRIMARY VISIT CARE HIGH PHYSICIAN SEVERITY& S [facility]REAT [facility] OFFICE 71957 [place] PAIN FITZGERAL OUTPATIEN 5 5 CARE & D CHRISTIANO T VISIT [facility] 15 HIG MINUTES HOSPITAL CENTRAL - 5 5 H[facility]UISM OUTPATIEN HOSP T PERIODIC 37164 ROMY NOBLE THE PREVENTIV 5 5 PRIMARY E MED EST CARE, [facility] PATIENT 40-64YRS HOSPITAL HINDUISM - 5 5 [facility] EM[facility] 63182 HINDUISM 5 5 [facility] T VISIT MODERATE SEVERITY EMERGENCY 95482 VORKPOR VORKPOR 5 5 [facility] T VISIT HIGH/URGE NT SEVERITY HOSPITAL [facility]UISM - [facility] OFF[facility] 56900 HINDUISM TIEN [facility] CONSULTAT 5 5 [facility] MEDICAL NEW/ESTAB GROUP PATIENT 40 MIN HOSPITAL CENTRAL - 4 4 HINDUISM INPATIENT HOSP EMERGENCY 77003 TING VORKPOR DEPT 4 4 JERI JERI VISIT HIGH SEVERITY& THREAT FUNCJ OFFICE 51818 SHOSHANA HAM SHOSHANA HAM OUTPATIEN 4 4 T NEW 45 MINUTES OFFICE 74483 TINO FUNEZ GRE OUTPATIEN 4 4 ORTHOPEDI T VISIT C 15 ASSOCIAT MINUTES OFFICE 63594 TINO MARRERO OUTPATIEN 3 3 ORTHOPEDI T VISIT C 15 ASSOCIAT MINUTES OFFICE 04759 ROMY MARCELO THE OUTPATIEN 3 3 [facility] 15 MINUTES OFFICE 32936 ROMY ALFRED OUTPATIEN [address] [facility] 15 MINUTES OFFICE 60213 TINO MARRERO OUTPATIEN 3 3 ORTHOPEDI T VISIT C 15 ASSOCIAT MINUTES HOSPITAL UNIVERSIT - 3 3 Y OUTPATI HOSPITAL T OFFICE 28444 [facility] 3 Y T VISIT 5 HOSPITAL MINUTES OFFICE 75448 MARY JO HOPKINSOOR OUTPATIEN 3 3 MEDICAL SARWAT T VISIT SERV 15 FOUNDATIO MINUTES OFFICE 74983 MICHELLE ANTOINE CARIDAD OUTPATIEN 3 3 REGIONAL T NEW 30 FAMILY MINUTES [facility] MICHELLE - 3 3 REGIONAL OUTPATIEN MEDICAL T CENTE OFFICE 34123 ROMY VILLAGOMEZ OUTPATIEN 3 3 [facility] 15 MINUTES OFFICE 94113 TINO MARRERO OUTPATIEN 3 3 ORTHOPEDI T VISIT C 25 ASSOCIAT MINUTES EMERGENCY 85427 [facility]ISM 3 [facility] H[facility] HINDU[facility] - 3 3 HEALTH OUTPATIEN JOIE T OFFICE 23932 TINO FUNEZ GRE OUTPATIEN 3 3 ORTHOPEDI T VISIT C 15 ASSOCIAT MINUTES OFFICE 11718 TINO FUNEZ GRE OUTPATIEN 3 3 ORTHOPEDI T VISIT C 15 ASSOCIAT MINUTES PERIODIC 16681 ROMY VILLAGOMEZ PREVENTIV 3 3 PRIMARY GIN E MED EST CARE, [facility] PATIENT 40-64YRS OFFICE 25334 MARY JO NASH OUTPATIEN 3 3 MEDICAL SARWAT T VISIT SERV 25 FOUNDATIO MINUTES OFFICE 82903 ROMY CR OUTPATIEN 2 2 PRIMARY T VISIT CARE, [facility] 15 MINUTES OFFICE 67121 TINO FUNEZ GRE OUTPATIEN 2 2 ORTHOPEDI T VISIT C 15 ASSOCIAT MINUTES OFFICE 91288 ROMY VILLAGOMEZ OUTPATIEN 2 2 PRIMARY GIN T VISIT CARE, [facility] 10 MINUTES OFFICE 60191 DEE DEE GRE DEE DEE GRE OUTPATIEN 2 2 T VISIT 15 MINUTES OFFICE 54393 ROMY VILLAGOMEZ OUTPATIEN 2 2 PRIMARY GIN T VISIT CARE, [facility] 15 MINUTES OFFICE 76921 DEE DEE GRE DEE DEE GRE OUTPATIEN 2 2 T VISIT 15 MINUTES OFFICE [id number] [facility]NA[facility] VILLAGOME[facility] OUTPATIEN 2 2 GIN GIN T VISIT 10 MINUTES OFFICE 52301 DEE DEE GRE DEE DEE GRE OUTPATIEN 2 2 T VISIT 15 MINUTES OFFICE 85775 DEE DEE GRE DEE DEE GRE OUTPATIEN 2 2 T VISIT 15 MINUTES OFFICE 27764 DEE DEE GRE DEE DEE GRE OUTPATIEN 2 2 T VISIT 15 MINUTES OFFICE 02199 [facility] 2 2 [facility] DE[facility] DEPT 25 MINUTES EMERGENCY 16274 [facility] [place] 1 1 EMERGENCY [facility] DEPARTMEN SERVICES T VISIT MODERATE SEVERITY [facility] [place] - 1 1 [facility] OUT[facility] T EMERGENCY [id number] [facility] Judit 1 1 [facility] DE[facility] A T VISIT HIGH/URGE NT SEVERITY OFFICE 17064 [facility] 1 [facility] DEPT DEPT 10 MINUTES OFFICE 35790 [facility] 1 1 [facility]ISIT 5 DEPT DEPT MINUTES OFFICE [id number] [facility] 1 1 [facility] VISIT DEPT DEPT 10 MINUTES
--- OUTSIDE RECORDS SUMMARY | 2016-11-21 15:02 | External Medical Summary Rpt ---
Demographics Home Phone Preferred Language German Marital Status Unknown Jain Affiliation Unknown Race Unknown Ethnic Group Unknown Author Author , Organization [employer] Address Unknown Phone Unavailable Care Team Providers Care Registered Nurse Renal Name Role Phone DANICA LASHAE, DANICA Unavailable Unavailable LASHAE [employer] Unavailable Unavailable INC, [employer] [facility], Unavailable Unavailable [facility], [facility], [facility], Unavailable Unavailable [facility], [facility] Unavailable Unavailable LABORATORI, 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 Unavailable Unavailable LABORATORI, 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 AY[facility] AND, AYOOB AND Unavailable Unavailable [facility] Unavailable Unavailable [facility] Unavailable Unavailable MEDICAL GROUP, [facility] Unavailable Unavailable [facility] & Unavailable Unavailable CR[facility], [facility] JOHNSON BENITA, JOHNSON Unavailable Unavailable BENITA [facility] Unavailable Unavailable PHARMACY, [email or web address] BRIDGES AIDE, BRIDGES Unavailable Unavailable AIDE WILLS JAM, WILLS JAM Unavailable Unavailable RIZZO TEN, RIZZO TEN Unavailable Unavailable SALINAS CAR, SALINAS Unavailable Unavailable CAR [facility], Unavailable Unavailable [facility] Unavailable Unavailable INC, [facility]available Unavailable INC, [facility] Unavailable Unavailable [facility]OC, [facility] Unavailable Unavailable PRACTI, [facility] PR[facility]I [facility] Unavailable Unavailable MEDICAL CENTE, [facility], Unavailable Unavailable [...] III MIL, Unavailable Unavailable RODERICK III MIL [facility] Unavailable Unavailable ASSOCIAT, [facility] Unavailable Unavailable MEDICAL G, [facility] BARBARA JUAN, BARBARA JUAN Unavailable Unavailable KOSTELIC JACKI, Unavailable Unavailable KOSTELIC JACKI KOUNS CARIDAD, KOUNS CARIDAD Unavailable Unavailable [facility] # Unavailable Unavailable [id number], [facility] # [id number] [facility] Unavailable Un[place] [facility], [place] [...] COGOVT AMARO AND, AMARO AND Unavailable Unavailable [facility] Unavailable Unavailable SERVICE, [facility] Unavailable Unavailable SERVICE, [facility] Unavailable Unavailable DEPT[facility] Unavailable Unavailable DEPT, [facility] DEPT [facility], Unavailable Unavailable [facility], [facility], [facility] SHOSHANA HAM, SHOSHANA HAM Unavailable Unavailable SHOSHANA HAM, SHOSHANA HAM Unavailable Unavailable [facility] Unavailable Unavailable SERVICES, [facility] DOZIER JUAN, DOZIER Unavailable Unavailable [...] Unavailable Unavailable [facility], [facility] Unavailable Unavailable NETWORK, [facility] Unavailable Unavailable NETWORK, [facility], Unavailable Unavailable [facility], [facility] Unavailable Unavailable HARRISON ELIGIO, HARRISON Unavailable Unavailable ELIGIO TIKHTMAN MONA, Unavailable Unavailable TIKHTMAN MONA [facility] Unavailable Unavailable ASSIST, [facility] ASSIST [facility], Unavailable Unavailable [facility] Unavailable Unavailable [place] [facility] JERI, VORKPOR Unavailable Unavailable JERI [facility] JERI, VORKPOR Unavailable Unavailable JERI [facility] # Unavailable Unavailable [id number], [facility] # [id number] PALACIOS, PALACIOS Unavailable Unavailable RANI IV ALL, [...] Z72.89 Other 10-01-2016 problems related to lifestyle [id number] INTENTIONAL 10-01-2016 [facility] SELF-HARM PHYSICIANS UNS SHARP ASSIST OBJECT INIT ENC Z048 ENCOUNTER 10-01-2016 [facility] EXAM & PHYSICIANS OBSERVATION ASSIST OTHER SPEC REASONS R42 Dizziness 08-25-2016 and giddiness [id number] UNSPECIFIED 08-22-2016 ALIVIA FAYETTE INJURY OF URBAN HEAD COGOVT INITIAL ENCOUNTER B21480 EPILEPSY 08-08-2016 [facility] INTRACT W/O STATUS EPILEPTICUS Y26305 PAIN IN 08-08-2016 [facility] [place] LEFT HAND RADIOLOGY [id number] UNSPECIFIED 08-08-2016 [facility] IN[facility] WRIST HAND FINGERS INITIAL [id number] UNSPECIFIED 08-08-2016 [facility] INITIAL SERV ENCOUNTER D20085 OTHER LONG 08-08-2016 [facility] CURRENT DRUG THERAPY Z309 ENCOUNTER 06-15-2016 [facility] FOR PRIMARY CONTRACEPTI CARE, [facility] VE MANAGEMENT UNS O77351 PRIMARY 01-14-2016 [facility] OSTEOARTHRI [facility] TIS RIGHT [place] SHOULDER C79843 PAIN IN 01-14-2016 [facility] RIGHT RADIOLOGY SHOULDER ASSOC Z58500 ENCOUNTER 12-08-2015 [facility] RADIO DIRECTOR EXAM PRIMARY GENERAL RTN [facility] W/O ABNORMAL FIND Z302 ENCOUNTER 12-08-2015 [facility] FOR PRIMARY STERILIZATI CARE, LLC ON B24670 LOC-REL SX 09-28-2015 [facility] [employer] W/CPS NOT MEDICAL G INTRACT W/O SE R569 UNSPECIFIED 09-28-2015 [facility] M[facility] CONVULSIONS MEDICAL G R05 COUGH 09-26-2015 [facility] [place] [facility] R0602 SHORTNESS 09-24-2015 [facility] [place] OF BREATH RADIOLOGY K8020 CALCULUS GB 09-23-2015 [facility] [place] W/O RADIOLOGY CHOLECYSTIT IS W/O OBSTRUCTION H65818 EPILEPSY 09-21-2015 [facility] UNS NANNETTE INTRACTABLE W/O STATUS EPILEPTICUS R9401 ABNORMAL 09-21-2015 [facility] ELECTROENCE NANNETTE PHALOGRAM EEG Z3002 COUNSELING 06-19-2015 [facility] INSTRUCT PRIMARY NATURAL FAM CARE, [facility] PLAN AVOID PREG R4182 ALTERED 04-01-2015 ALIVIA FAYETTE MENTAL URBAN STATUS COGOVT UNSPECIFIED Z008 ENCOUNTER 04-01-2015 [facility] N [facility]GENCY GENERAL SERV EXAMINATION E87640 PAIN IN 03-23-2015 [place] UNSPECIFIED PRIMARY SHOULDER CARE, [facility] M609 MYOSITIS 03-19-2015 [facility] U[facility]PECIF[facility] M791 MYALGIA 03-19-2015 [facility] 04193 GENERALIZED 01-27-2015 [place] ANXIETY PRIMARY DISORDER CARE, [facility] 19791 UNSPEC 01-27-2015 [place] EPILEPSY PRIMARY WITHOUT CARE, [facility] MENTION INTRACT EPILEPSY 3899 UNSPECIFIED 01-23-2015 [facility]PITAL LOSS 7802 SYNCOPE AND 01-23-2015 [facility] 12382 OTHER 01-23-2015 [facility] 7804 DIZZINESS 01-23-2015 [facility] GIDDINESS 27850 OTHER 01-18-2015 [facility] CONDITIONS SERV OF BRAIN [facility]OUND[facility] 4371 OTH 01-18-2015 [facility] GENERALIZED SERV ISCHEMIC [facility] CEREBROVASC ULAR DISEASE 75719 ALTERED 01-18-2015 ALIVIA FAYETTE MENTAL URBAN STATUS COGOVT 7840 HEADACHE 01-18-2015 [facility] BILLY 04139 LOC-REL 12-12-2014 [facility] EPILEPSY & NANNETTE ES W/SPS W/INTRACTAB LE EPIL V700 ROUTINE 12-12-2014 [facility] GENERAL NANNETTE MEDICAL EXAM@HEALTH CARE FACL 19906 PAIN IN 12-09-2014 [facility] JOINT, RADIOLOGY SHOULDER REGION 7241 PAIN IN 12-09-2014 [facility] THORACIC RADIOLOGY SPINE 95019 OBESITY, 12-01-2014 [place] PAIN UNSPECIFIED CARE & [facility] 7242 LUMBAGO 12-01-2014 [place] PAIN CARE & [facility] V7109 OBSERVATION 12-01-2014 [place] PAIN OF OTHER CARE & SUSPECTED [facility] MENTAL HIG CONDITION 06384 NONSPECIFIC 11-20-2014 [facility] ABNORMAL [facility] PHALOGRAM 71076 IRRITABILIT 11-20-2014 [facility] Y [facility] V154 PERS HX 11-03-2014 DEPT FOR PSYCHOLOGIC PUBLIC HLTH AL TRAUMA PRS [facility] 2724 OTHER AND 09-26-2014 [place] UNSPECIFIED PRIMARY CARE, [facility] HYPERLIPIDE GEOVANNA V2504 CNSL&INSTRC 09-17-2014 [facility] NATURAL FAM PLANNG AVOID PREG V258 OTHER 09-16-2014 [place] SPECIFIED PRIMARY CONTRACEPTI CARE, [facility] VE MANAGEMENT 7295 PAIN IN 08-15-2014 [facility] [place] SOFT RADIOLOGY TISSUES OF LIMB 8290 CLOSED 08-15-2014 [place] CO FRACTURE OF AMBULANCE SERVICE UNSPECIFIED BONE 73575 CONTUSION 08-15-2014 [facility] OF [facility] REGION MEDICAL 59412 CONTUSION 08-15-2014 [facility] JERI MULTIPLE SITES SHOULDER&UP PER ARM E9179 OTHER 08-15-2014 [facility] JERI STRIKING AGAINST W/WO SUBSEQUENT FALL 5990 URINARY 02-17-2014 [place] TRACT PRIMARY INFECTION CARE, [facility] SITE NOT SPECIFIED 7881 DYSURIA 02-17-2014 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 59080 URINARY 02-17-2014 [facility] FREQUENCY 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I 68028 02-17-2014 [facility] ION SER 03855 GEN CONVUL 02-09-2014 [facility] EPILEPS[facility] PULMONARY & W/O MENTION CRITICAL INTRACT EPILEPSY 2762 ACIDOSIS 02-08-2014 [facility] 69750 DEHYDRATION 02-08-2014 [facility] V1581 PERS HX 02-08-2014 [facility] NONCOMPLIAN [facility] CE W/MED TX HOSP PRS HAZARDS HLTH 7197 DIFFICULTY 10-06-2013 HOME IN WALKING CONVALESCEN T AIDS INC 8249 UNSPECIFIED 10-06-2013 HOME OPEN CONVALESCEN FRACTURE OF T AIDS INC ANKLE V7241 08-27-2013 [facility] EXAMINATION [facility]S, [facility] OR TEST NEGATIVE RESULT 27058 PAIN IN 08-12-2013 SHOSHANA HAM JOINT, ANKLE AND FOOT 18029 PAIN IN 06-04-2013 [place] [facility], ORTHOPEDIC LOWER LEG ASSOCIAT 8441 SPRAIN AND 06-04-2013 [facility] STRAIN OF ORTHOPEDIC MCL OF KNEE ASSOCIAT 64348 CONTUSION 05-31-2013 [place] OF THIGH PRIMARY CARE, [facility] V2509 OTH GENERAL 05-31-2013 [place] PRIMARY CNSL&ADVICE CARE, [facility] CONTRACEPT MANAGEMENT 85260 RESTLESS 05-17-2013 [place] LEGS PRIMARY SYNDROME CARE, [facility] 3569 UNSPEC 05-17-2013 [place] HEREDIT&IDI PRIMARY OPATHIC CARE, [facility] PERIPHERAL NEUROPATHY 5589 OTH&UNSPEC 05-17-2013 [place] NONINFECTIO PRIMARY US CARE, [facility] GASTROENTER ITIS&COLITI S 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 V5869 LONG-TERM 02-08-2013 [facility] USE OF OTHER MEDICATIONS 02627 OTHER 11-06-2012 [facility] [place] NONSPECIFIC RADIOLOGY ABNORMAL FINDING OF LUNG FIELD 05995 HYPOXEMIA 11-06-2012 [facility] PRACTI 16505 HYPERTENSIO 11-06-2012 [facility] N NEC REGIONAL FAMILY PRACTI E8889 UNSPECIFIED 11-06-2012 [facility] FALL REG[facility]AL FAMILY PRACTI 3384 CHRONIC 11-05-2012 [place] PAIN REGIONAL SYNDROME MEDICAL CENTE 8248 UNSPECIFIED 11-02-2012 [place] CLOSED PRIMARY FRACTURE OF CARE, [facility] ANKLE 8246 CLOSED 10-29-2012 [facility] EMERGENCY R FRACTURE SERVICES E8859 FALL FROM 10-29-2012 [facility] OTHER EMERGENCY SLIPPING SERVICES TRIPPING OR STUMBLING V4973 LOWER LIMB 10-29-2012 [facility] AMPUTATION, EMERGENCY FOOT SERVICES 14012 CLOSED 10-17-2012 [place] FRACTURE OF ORTHOPEDIC SHAFT OF ASSOCIAT FIBULA 7812 ABNORMALITY 07-12-2012 [place] OF GAIT ORTHOPEDIC ASSOCIAT 1121 CANDIDIASIS 07-10-2012 [place] OF VULVA PRIMARY AND VAGINA CARE, [facility] 6235 LEUKORRHEA 07-10-2012 [facility]IAN NOT ESOTERIC SPECIFIED LABORATORI INFECTIVE V7231 ROUTINE 07-10-2012 [place] GYNECOLOGIC PRIMARY AL CARE, [facility] EXAMINATION V762 SCREENING 07-10-2012 [place] FOR PRIMARY MALIGNANT CARE, [facility] NEOPLASM OF THE CERVIX 6260 ABSENCE OF 06-11-2012 [facility] MENSTRUATIO LABS, [facility] N 23547 SEC 04-12-2012 [place] LOCALIZED ORTHOPEDIC OSTEOARTHRO ASSOCIAT SIS SHOULDER REGION 39732 COMPLETE 04-12-2012 [place] RUPTURE OF ORTHOPEDIC ROTATOR ASSOCIAT CUFF V0481 NEED 04-09-2012 [place] PROPHYLACTI PRIMARY C CARE, [facility] VACCINATION &INOCULATIO N FLU 7260 ADHESIVE 01-19-2012 [facility] CAPSULITIS OF SHOULDER 07207 EFFUSION OF 01-12-2012 [facility] SHOULDER OPEN MRI JOINT 59047 UNSPEC 01-12-2012 [facility] DISORDERS OPEN MRI BURSAE&TEND ONS SHOULDER REGION 8406 SUPRASPINAT 01-12-2012 [facility] US SPRAIN OPEN MRI AND STRAIN 12911 COMA 12-22-2011 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 61923 SCOLIOSIS , 10-03-2011 [facility] IDIOPATHIC OPEN MRI 8970 TRAUMAT AMP 09-13-2011 RESP A CARE LEG UNILAT INC BELW KNEE W/O COMP 60838 CLOSED 09-01-2011 [facility] FRACTURE OF UNSPECIFIED PART OF HUMERUS 2662 OTHER 06-23-2011 [facility] B-COMPLEX HEALTH DEPT DEFICIENCIE S V2549 SURVEILLANC 06-23-2011 [facility] E OTH PREV HEALTH DEPT PRSC CONTRACEPT METHOD V8533 BODY MASS 06-23-2011 [facility] INDEX HEALTH DEPT 33.0-33.9 ADULT 9592 INJURY 05-29-2011 [facility] OTHER&UNSPE SERV CIFIED [facility] SHOULDER&UP PER ARM V5411 AFTERCARE 05-29-2011 [place] [facility] HEALING SERV TRAUMATIC [facility] FRACTURE UPPER ARM 26336 PAIN IN 05-25-2011 [facility] [place] JOINT, AMBULANCE UPPER ARM SERVICE 7869 OTH 05-25-2011 [place] MED[facility] SYMPTOMS SERV INVOLVING [facility] RESPIRATORY SYSTEM&CHES T 77601 CLOSED 05-25-2011 [place] [facility] FRACTURE OF SERV SURGICAL [facility] NECK OF HUMERUS 15770 OTHER WRIST 05-25-2011 [place] [facility] SPRAIN AND SERV STRAIN [facility] 45891 CLOSED 04-16-2011 [facility] FRACTURE [facility] UNSPEC PART UPPER END HUMERUS 53139 OTHER 01-07-2011 [facility] FATIGUE NETWORK V3000 SINGLE 02-22-2002 [facility] PEDIA W/O Medications Na ND Rx [...] 08 S GE [address] [place] ER LY ON E PH 15 AR [...] S TE GE [address] [place] I ER LY ON E PH 15 [...] URBAN URBAN EMERGENCY COGOVT COGOVT TRANSPORT RADEX 65479 [facility] [place] RODERICK HAND 7 RADIOLOGY III MINIMUM 3 VIEWS COMPREHEN 36854 [facility] SIVE 7 HEALTH HEALTH METABOLIC [facility] PANEL COLLECTIO 60792 [facility] N VENOUS 7 HEALTH HEALTH BLOOD [facility] VENIPUNCT URE DRUG 28984 [facility] SCREEN 7 HEALTH HEALTH QUANTITAT [facility] HELGA LAMOTRIGI NE DRUG 66788 [facility] ASSAY 7 [facility] HEALTH VALPROIC [facility] DIPROPYLA CETIC ACID TOTAL THERAPEUT 31227 [facility] IC 7 PRIMARY PROPHYLAC CARE, LLC TIC/DX INJECTION SUBQ/IM INJECTION J1050 [facility] 7 PRIMARY MEDROXYPR CARE, LLC OGESTERON E ACETATE 1 MG RADEX 36668 [facility] SHOULDER 6 HEALTH HEALTH COMPLETE [facility] MINIMUM 2 VIEWS THERAPEUT 68253 [facility] IC [address] PROPHYLAC CARE, LLC TIC/DX INJECTION SUBQ/IM INJECTION J1050 [place] [address] MEDROXYPR CARE, LLC OGESTERON E ACETATE 1 MG SBSQ 99290 [facility] 6 [place] HEALTH CARE/DAY MEDICAL 25 G MINUTES RADIOLOGI 92661 [facility] [place] WESTERFIE C 6 RADIOLOGY LD IV ALL EXAMINATI ON CHEST SINGLE VIEW FRONTAL RADIOLOGI 59497 [facility] [place] KOSTELIC C 6 RADIOLOGY JACKI EXAMINAT[place] [address] [facility] [place] DANICA ABDOMEN & 6 RADIOLOGY LASHAE PELVIS W/O CONTRAST MATERIAL RADIOLOGI 10602 [facility] [place] FRANK C 6 RADIOLOGY QUINTEN EXAMINATI [place] [address] [facility] [place] DANICA HEAD/BRAI 6 RADIOLOGY LASHAE N W/O CONTRAST MATERIAL GROUND A0425 ALIVIA ALIVIA MILEAGE 6 FAYETTE LEATHATTE PER URBAN URBAN STATUTE COGOVT COGOVT MILE INITIAL 33878 [facility] INPATIENT 6 NE HEALTH CONSULT MEDICAL NEW/ESTAB G PT 110 MIN AMB A0427 ALIVIA ALIVIA SERVICE 6 FAYETTE FAYETTE ALS URBAN URBAN EMERGENCY COGOVT COGOVT TRANSPORT LEVEL 1 LOCALIZE 48537 [facility] TIMO CEREBRAL 6 NANNETTE NANNETTE SEIZURE CABLE/RAD IO EEG/VIDEO THERAPEUT 35021 [facility] ALFRED IC 6 [facility] [address] PROPHYLAC CARE, LLC TIC/DX INJECTION SUBQ/IM INJECTION J1050 [facility] VILLARREAL 6 PRIMARY MEDROXYPR CARE, LLC OGESTERON E ACETATE 1 MG THERAPEUT 44108 [facility] VILLARREAL IC 6 [facility] PROP[facility]AC [facility] LLC TIC/DX INJECTION SUBQ/IM COMPREHEN 00212 [facility] SIVE 5 [facility] METABOLIC [facility] HOSP PANEL COLLECTIO 61882 [facility] N VENOUS 5 [facility] BLOOD HOSP HOSP VENIPUNCT URE BLOOD 51015 [facility] COUNT 5 [facility] COMPLETE HOSP HOSP AUTO&AUTO DIFRNTL WBC DRUG 15211 [facility] ASSAY 5 [facility] VALPROIC HOSP HOSP DIPROPYLA CETIC ACID TOTAL GROUND A0425 ALIVIA ALIVIA MILEAGE 5 FAYETTE FAYETTE PER [facility] URBAN STATUTE COGOVT COGOVT MILE AMB A0427 ALIVIA ALIVIA SERVICE 5 FAYETTE FAYETTE ALS URBAN URBAN EMERGENCY COGOVT COGOVT TRANSPORT LEVEL 1 INJECTION J1050 [facility] VILLARREAL 5 PRIMARY MEDROXYPR CARE, LLC OGESTERON E ACETATE 1 MG THERAPEUT 42444 [facility] VILLARREAL IC 5 PRIMARY PROPHYLAC CARE, LLC TIC/DX INJECTION SUBQ/IM AMB A0427 ALIVIA ALIVIA SERVICE 5 FAYETTE FAYETTE ALS URBAN URBAN EMERGENCY COGOVT COGOVT TRANSPORT LEVEL 1 ECG 00299 [place] NIKHIL ROUTINE 5 MEDICAL NAN ECG SERV W/LEAST FOUNDATIO 12 LDS N I&R ONLY GROUND A0425 ALIVIA ALIVIA MILEAGE 5 FAYETTE FAYETTE PER URBAN URBAN STATUTE COGOVT COGOVT MILE GROUND A0425 ALIVIA ALIVIA MILEAGE 5 FAYETTE FAYETTE PER URBAN URBAN STATUTE COGOVT COGOVT MILE AMB A0427 ALIVIA ALIVIA SERVICE 5 FAYETTE FAYETTE ALS URBAN URBAN EMERGENCY [place] [address] [place] [address] [place] ESCOTT HEAD/BRAI 5 MEDICAL EDW N W/O SERV CONTRAST FOUNDATIO MATERIAL N SBSQ 83942 [facility] 5 NE [facility] CARE/DAY MEDICAL 35 G MINUTES INITIAL 97819 [facility] INPATIENT 5 NE [facility] CONSULT MEDICAL NEW/ESTAB G PT 55 MIN RADEX 65328 [facility] [place] SALINAS SCAPULA 5 RADIOLOGY CAR COMPLETE RADEX 55404 [facility] [place] SHOULDER 5 RADIOLOGY LD IV ALL COMPLE[place] [address] [place] [address] [facility] [place] HEAD/BRAI 5 RADIOLOGY LD IV ALL N W/O CONTRAST MATERIAL RADEX 34830 [facility] [place] SALINAS SPINE 5 RADIOLOGY CAR THORACIC 2 VIEWS ELECTROEN 41015 [facility] CEPHALOGR 5 [facility] AM W/REC HOSP HOSP AWAKE&ASL EEP URINE 04282 [facility] 5 LABS, [facility] LABS, [facility] TEST VISUAL COLOR CMPRSN METHS INJECTION J1050 [place] [facility] MAR 5 PRIMARY MEDROXYPR CARE, LLC OGESTERON E ACETATE 1 MG THERAPEUT 68872 [place] MERLIN MAR IC 5 PRIMARY PROPHYLAC CARE, LLC TIC/DX INJECTION SUBQ/IM RADEX 09140 [facility] [place] WILLS SUNITHA HUMERUS 5 RADIOLOGY MINIMUM 2 VIEWS SHOULDER L3660 [facility] ORTHOSIS 5 DISCOUNT DISCOUNT FIG 8 MEDICAL MEDICAL CANVAS WEBBING PREFAB RADEX 94998 [facility] [place] WILLS JAM SHOULDER 5 RADIOLOGY COMPLETE MINIMUM 2 VIEWS GROUND A0425 [facility] MILEAGE 5 CO CO PER AMBULANCE AMBULANCE STATUTE SERVICE SERVICE MILE AMBULANCE A0429 [facility] SERVICE 5 CO CO BLS AMBULANCE AMBULANCE EMERGENCY SERVICE SERVICE TRANSPORT BILIRUBIN 98123 [facility] DIRECT 5 [facility] COMPREHEN 53004 [facility] SIVE 5 [facility] METABOLIC [facility] PANEL COLLECTIO 28977 [facility] N VENOUS 5 [facility] BLOOD [facility] VENIPUNCT URE THERAPEUT 75399 [place] OVERBEE IC [address] PROPHYLAC CARE, LLC TIC/DX INJECTION SUBQ/IM NONEMERGE A0100 [facility] 4 TRANSPORT TRANSPORT ATION; ATION SER TAXI CULTURE 41757 [facility] EGYPTIAN BACTERIAL 4 ESOTERIC 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 LABORATOR QUANTTATI I I VE COLONY COUNT URINE URNLS DIP 83827 [facility] Call 4 LABS, LLC LABS, LLC STICK/TAB LET REAGENT AUTO MICROSCOP Y INJECTION J0696 [place] [address] PRIMARY PRIMARY CEFTRIAXO CARE, LLC CARE, LLC NE SODIUM PER 250 MG URINE 85262 [facility] 4 LABS, LLC LABS, LLC TEST VISUAL COLOR [facility] [address] [facility] 4 MEDICINE DAY SERVICES, MANAGEMEN T > 30 MIN SBSQ 24870 [place] [address] NEUROLOGY RYA CARE/DAY SERVICES 25 MINUTES SBSQ 38544 [place] [address] NEUROLOGY RYA CARE/DAY SERVICES 25 MINUTES INITIAL 00994 [place] [address] MEDICINE CARE/DAY SERVICES, 70 MINUTES INITIAL 43911 [place] [address] NEUROLOGY TIM CARE/DAY CENTER 70 ALIVIA MINUTES SBSQ 07130 [place] [address] PULMONARY JUAN CARE/DAY & 35 CRITICAL MINUTES AMB A0427 [facility] SERVICE 4 CO CO ALS AMBULANCE AMBULANCE EMERGENCY SERVICE SERVICE TRANSPORT LEVEL 1 AMB A0422 [facility] OXYGEN&O2 4 CO CO SUPPLIES AMBULANCE AMBULANCE LIFE SERVICE SERVICE SUSTAININ G SITUATION RADIOLOGI 07878 TING MAGUIRE C 4 JERI JERI ROXIINATI [place] [address] [facility] [place] FRANK HEAD/BRAI 4 RADIOLOGY QUINTEN N W/O CONTRAST MATERIAL GROUND A0425 [facility] MILEAGE 4 CO CO PER AMBULANCE AMBULANCE STATUTE SERVICE SERVICE MILE ECG 62927 [facility] VORKPOR ROUTINE 4 JERI JERI ECG W/LEAST 12 LDS I&R ONLY STANDARD K0001 HOME HOME WHEELCHAI 4 CONVALESC CONVALESC R ENT AIDS ENT AIDS INC INC STANDARD K0001 HOME HOME WHEELCHAI 4 CONVALESC CONVALESC R ENT AIDS ENT AIDS INC INC THERAPEUT 34054 [facility] IC 4 PRIMARY PRIMARY PROPHYLAC CARE, [facility]ARE[facility] TIC/DX INJECTION SUBQ/IM URINE 36725 [facility] 4 LABS, [employer] TEST VISUAL COLOR CMPRSN METHS DRUG SCR [...] ENT AIDS ENT AIDS INC INC RADIOLOGI 63684 [place] DEE DEE GRE C 3 ORTHOPEDI EXAMINATI C ON KNEE ASSOCIAT 1/2 VIEWS URINE 66806 [facility] 3 LABS, [employer], [employer] TEST VISUAL COLOR CMPRSN METHS INJECTION J1050 [facility] THE 3 [facility] OGESTERON E ACETATE 1 MG THERAPEUT 21775 [facility] IC 3 [facility] TIC/DX [...] K0001 HOME HOME WHEELCHAI 3 [facility] R ENT AIDS ENT AIDS INC INC STANDARD K0001 HOME HOME WHEELCHAI 3 [facility] R ENT AIDS ENT AIDS INC INC STANDARD K0001 HOME HOME WHEELCHAI 3 [facility] R ENT AIDS ENT AIDS INC INC DRUG 85429 [place]IAN EGYPTIAN ASSAY 3 ESOTERIC ESOTERIC VALPROIC LABORATOR LABORATOR DIPROPYLA I I CETIC ACID TOTAL RADEX 81598 [place] DEE DEE GRE ANKLE 3 ORTHOPEDI COMPLETE C MINIMUM 3 ASSOCIAT VIEWS STANDARD K0001 HOME HOME WHEELCHAI 3 [facility] R ENT AIDS ENT AIDS INC INC RADEX 69110 [place] DEE DEE GRE ANKLE 3 ORTHOPEDI COMPLETE C MINIMUM 3 ASSOCIAT VIEWS DRUG 65601 [place]IAN ASSAY 3 ESOTERIC ESOTERIC VALPROIC LABORATOR LABORATOR DIPROPYLA I I CETIC ACID TOTAL URINE 15374 [facility] 3 LABS, [facility] LABS, [employer] TEST VISUAL COLOR CMPRSN METHS STANDARD K0001 HOME HOME WHEELCHAI 3 [facility] R ENT AIDS ENT AIDS INC INC RADEX 93906 [place] DEE DEE GRE ANKLE 3 ORTHOPEDI COMPLETE C MINIMUM 3 ASSOCIAT VIEWS APPLICATI 64967 [place] DEE DEE GRE ON SHORT 3 ORTHOPEDI LEG CAST C BELOW ASSOCIAT KNEE-TOE COMMODE E0163 HOME HOME CHAIR 3 [facility] MOBILE OR ENT AIDS ENT AIDS INC INC STATIONAR Y W/FIXED ARMS STANDARD K0001 HOME HOME WHEELCHAI 3 [facility] R ENT AIDS ENT AIDS INC INC RADIOLOGI 21161 [facility] MARY JO VAUGHN C 3 RADIOLOGY III MIL EXAMINATI ON CHEST SINGLE VIEW FRONTAL NONINVASI 31568 MICHELLE MICHELLE VE 3 REGIONAL REGIONAL EAR/PULSE MEDICAL MEDICAL OXIMETRY [facility]PA [facility] DETER GROUND A0425 [facility] MILEAGE 3 CO CO PER AMBULANCE AMBULANCE STATUTE SERVICE SERVICE MILE INJECTION J1650 MICHELLE MARTINEZ 3 REGIONAL REGIONAL ENOXAPARI MEDICAL MEDICAL N SODIUM CENTE CENTE 10 MG INJECTION J0690 MICHELLE MARTINEZ 3 REGIONAL REGIONAL CEFAZOLIN MEDICAL MEDICAL SODIUM CENTE CENTE 500 MG INJECTION J2250 MICHELLE MARTINEZ 3 REGIONAL REGIONAL MIDAZOLAM MEDICAL MEDICAL HCL PER CENTE CENTE 1 MG OPEN [id number] MICHELLE MARTINEZ TREATMENT 3 REGIONAL REGIONAL MEDICAL MEDICAL BIMALLEOL CENTE CENTE AR ANKLE FRACTURE BLOOD 51563 MICHELLE MARTINEZ COUNT 3 REGIONAL REGIONAL COMPLETE MEDICAL MEDICAL AUTOMATED CENTE CENTE GONADOTRO 16659 MICHELLE MARTINEZ PIN 3 [facility]IONAL REGIONAL CHORIONIC MEDICAL MEDICAL CENTE CENTE QUALITATI VE INJECTION [id number] MICHELLE MARTINEZ FENTANYL 3 REGIONAL REGIONAL CITRATE MEDICAL MEDICAL 0.1 MG CENTE CENTE INJECTION J2710 MICHELLE MARTINEZ 3 REGIONAL REGIONAL NEOSTIGMI MEDICAL MEDICAL NE CENTE CENTE METHYLSUL FATE UP TO 0.5 MG BASIC 43570 MICHELLE MARTINEZ METABOLIC 3 REGIONAL REGIONAL PANEL MEDICAL MEDICAL CALCIUM CENTE CENTE TOTAL ANES OPEN 24648 COMMONWEA HARRISON PROC 3 LTH ELIGIO BONES [...] CENTE CHLORIDE UP TO 20 MG FLUOROSCO 58689 MICHELLE MARTINEZ PY SPX >1 3 REGIONAL REGIONAL HOUR MEDICAL MEDICAL PHYS/QHP CENTE CENTE TIME RADEX 77237 JEWISH JEWISH ANKLE 3 HEALTH HEALTH COMPLETE [facility] MINIMUM 3 VIEWS CLTX 44128 SAMIA ISBELLALLEO 3 EMERGENCY PAMELA LAR ANKLE SERVICES FX W/O MANIPULAT ION THERAPEUT 10318 GAINCARLO PATELTIST IC 3 HEALTH HEALTH PROPHYLAC [facility] TIC/DX INJECTION SUBQ/IM AMB A0427 [facility] SERVICE 3 CO CO ALS AMBULANCE AMBULANCE EMERGENCY SERVICE SERVICE TRANSPORT LEVEL 1 RADIOLOGI 40712 JEWISH JEWISH C 3 HEALTH HEALTH EXAMINATI [facility] ON TIBIA & FIBULA 2 VIEWS GROUND A0425 [facility] MILEAGE 3 CO CO PER AMBULANCE AMBULANCE STATUTE SERVICE SERVICE MILE RADIOLOGI 51398 TINO FLORENCEU GRE C 3 ORTHOPEDI EXAMINATI C ON KNEE ASSOCIAT 1/2 VIEWS URINE 05097 [facility] Call 3 [employer] TEST VISUAL COLOR CMPRSN METHS CLTX PROX 79225 TINO FLORENCEU GRE 3 ORTHOPEDI FIBULA/SH C FT FX W/O ASSOCIAT MANJ RADIOLOGI 77237 TINO FLORENCEU GRE C 3 ORTHOPEDI EXAMINATI C ON KNEE ASSOCIAT 1/2 VIEWS IADNA 42394 EGYPTIAN EGYPTIAN PAPILLOMA 3 ESOTERIC ESOTERIC VIRUS LABORATOR LABORATOR HUMAN I I AMPLIFIED PROBE TQ CYTP C/V 85024 EGYPTIAN EGYPTIAN AUTO THIN 3 ESOTERIC ESOTERIC LYR LABORATOR LABORATOR PREPJ SCR I I MNL RESCR PHYS IADNA 85249 EGYPTIAN EGYPTIAN TRICHOMON 3 ESOTERIC 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 LABORATOR VAGINALIS I I DIRECT PROBE TQ IADNA 23240 EGYPTIAN EGYPTIAN GARDNEREL 3 ESOTERIC ESOTERIC LA LABORATOR LABORATOR VAGINALIS I I DIRECT PROBE TQ IADNA 07654 EGYPTIAN EGYPTIAN TRENT 3 ESOTERIC ESOTERIC SPECIES LABORATOR LABORATOR DIRECT I I PROBE TQ THERAPEUT 48025 [facility] IC 3 PRIMARY GIN PROPHYLAC CARE, [facility] TIC/DX INJECTION SUBQ/IM URINE 44535 [facility] Call 3 LABS, [employer], [employer] TEST VISUAL COLOR CMPRSN METHS ARTHROCEN 09652 TINO DEE DEE GRE TESIS 2 ORTHOPEDI ASPIR&/IN C J MAJOR ASSOCIAT JT/BURSA W/O US INJECTION J1050 HERNANDO VILLAGOMEZ 2 GIN GIN MEDROXYPR OGESTERON E ACETATE 1 MG MRI ANY 37647 JOIE RASHEED JT UPPER 2 OPEN MRI DELORIS EXTREMITY W/O CONTRAST MATRL RADEX 50705 JOIE LARSEN SHOULDER 2 OPEN MRI AIDE COMPLETE MINIMUM 2 VIEWS URINE 44182 [facility] 2 LABS, [facility] LABS, [employer] TEST VISUAL COLOR CMPRSN METHS COMPREHEN 10677 EGYPTIAN EGYPTIAN SIVE 2 ESOTERIC ESOTERIC METABOLIC LABORATOR LABORATOR PANEL I I BLOOD 76555 EGYPTIAN EGYPTIAN COUNT 2 ESOTERIC ESOTERIC COMPLETE LABORATOR LABORATOR AUTO&AUTO I I DIFRNTL WBC DRUG 04633 EGYPTIAN EGYPTIAN ASSAY 2 ESOTERIC ESOTERIC VALPROIC LABORATOR LABORATOR DIPROPYLA I I CETIC ACID TOTAL RADEX 28543 JOIE RASHEED SPINE 2 OPEN MRI DELORIS THORACIC 2 VIEWS RADEX 71351 JOIE LARSEN SPINE 2 OPEN MRI AIDE LUMBOSACR AL MINIMUM 4 VIEWS COMMODE E0163 RESP A RESP A CHAIR 2 CARE [facility] MOBILE OR STATIONAR Y W/FIXED ARMS URINE 56415 [facility] 2 LABS, [facility] LABS, [employer] TEST VISUAL COLOR CMPRSN METHS INJECTION J3302 DEE DEE GRE DEE DEE GRE 2 TRIAMCINO LONE DIACETATE PER 5 MG ARTHROCEN 00911 DEE DEE GRE DEE DEE GRE TESIS 2 ASPIR&/IN J MAJOR JT/BURSA W/O US RADEX 46985 DEE DEE GRE DEE DEE GRE SHOULDER 2 1 VIEW CYTP 70861 PATHOLOGY PICKLESIM CERV/VAG 2 & ER JR ORESTES AUTO THIN CYTOLOGY LAYER LAB PREP MNL SCREEN INJ J1055 [facility] MDRXYPRGE 2 [facility] DEPT ACTAT CNTRACPT USE 150 MG IIV3 23034 HERNANDO VILLAGOMEZ VACCINE 2 GIN GIN SPLIT VIRUS 0.[address] [place] [address] [place] NOLAN HEAD/BRAI 1 MEDICAL TYRELL N W/O SERV CONTRAST FOUNDATIO MATERIAL RADEX 63915 [place] [facility] ZIA SHOULDER 1 MEDICAL COMPLETE SERV MINIMUM 2 FOUNDATIO VIEWS RADEX 63362 [place] BARBARA JUAN SHOULDER 1 MEDICAL COMPLETE SERV MINIMUM 2 FOUNDATIO VIEWS RADEX 43488 [place] JUAN SHOULDER 1 MEDICAL COMPLETE SERV MINIMUM 2 FOUNDATIO VIEWS RADEX 95221 [place] BARBAR[place] JUAN WRIST 1 MEDICAL COMPLETE SERV MINIMUM 3 FOUNDATIO VIEWS AMB A0427 [facility] SERVICE 1 CO CO ALS AMBULANCE AMBULANCE EMERGENCY SERVICE SERVICE TRANSPORT LEVEL 1 GROUND A0425 [facility] MILEAGE 1 CO CO PER AMBULANCE AMBULANCE STATUTE SERVICE SERVICE MILE RADIOLOGI 00272 AYOOB AND AYOOB AND C 1 EXAMINATI ON CHEST SINGLE VIEW FRONTAL RADEX 65767 DEE DEE GRE DEE DEE GRE SHOULDER 1 1 VIEW SEWHO L3960 ADVANCED ADVANCED ABDUCT 1 TECHNOLOG TECHNOLOG PSTN IES INC IES INC AIRPLANE DESN PREFAB W/FIT&ADJ ORTHOTIC 72575 DEE DEE GRE DEE DEE GRE MGMT&ALLISON 1 NJ UXTR LXTR&/TRN K EA 15 CLTX 94057 DEE DEE GRE DEE DEE GRE PROXIMAL 1 HUMERAL FRACTURE W/O MANIPULAT ION RADEX 02564 FARAGASSO FARAGASSO SHOULDER 1 DEV DEV 1 VIEW RADEX 88831 LILLIE A LILLEI A SHOULDER 1 [facility] COMPLETE A A MINIMUM 2 VIEWS INJ J1055 [facility] MDRXYPRGE 1 [facility] DEPT DEPT ACTAT CNTRACPT USE 150 MG BLOOD 36572 SPECTRUM SPECTRUM COUNT 1 LABORATOR LABORATOR COMPLETE Y NETWORK Y NETWORK AUTOMATED DRUG 82680 SPECTRUM SPECTRUM ASSAY 1 LABORATOR LABORATOR VALPROIC Y NETWORK Y NETWORK DIPROPYLA CETIC ACID TOTAL LIPID 89357 SPECTRUM SPECTRUM PANEL 1 LABORATOR LABORATOR Y NETWORK Y NETWORK 25 36276 SPECTRUM SPECTRUM HYDROXY 1 LABORATOR LABORATOR INCLUDES Y NETWORK [place] [address] SPECTRUM SPECTRUM THYROID 1 LABORATOR LABORATOR STIMULATI Y NETWORK Y NETWORK NG HORMONE TSH COMPREHEN 83520 SPECTRUM SPECTRUM SIVE 1 LABORATOR LABORATOR METABOLIC Y NETWORK Y NETWORK PANEL INJ J1055 [facility] MDRXYPRGE 1 [facility] DEPT ACTAT CNTRACPT USE 150 MG INJ J1055 [facility] MDRXYPRGE 1 [facility] DEPT ACTAT CNTRACPT USE 150 MG [facility] 83746 UNIVERSIT UNIVERSIT DISCHARGE 2 Y OF Y OF DAY [facility] MANAGEMEN PEDIA PEDIA T 30 MIN/< [facility] HOSP 90185 [facility] Y OF Y OF F/E/M NML [facility] NB AL D PEDIA PEDIA HX&XM NML 10140 [facility] NB INFT 2 Y OF Y OF INITIATIO [facility] N DX&TX PEDIA PEDIA Encounters Encounter Start End Date Code Location Performer Type Date EMERGENCY [address] [facility] S ASSIST MODERATE SEVERITY EMERGENCY [address] DEPARTMEN T VISIT MODERATE SEVERITY HOSPITAL [address] [facility] 7 [facility] H[facility] JEWISH - 6 6 [facility]ALTH [facility] PERIODIC [address] [place] OVERBEJazmine PREVENTIV [address] MED EST CARE, [facility] PATIENT 40-64YRS OFFICE 71458 ROMY RIZZO [facility] 6 6 PRIMARY T VISIT CARE, [facility] 15 MINUTES [facility] [place] - 5 5 [facility] OUTPATIEN HOSP T EMERGENCY 65756 [facility] 5 5 MONIKA BENITA DEPARTMEN EMERGENCY T VISIT SERV HIGH/URGE NT SEVERITY OFFICE 12200 ROMY VILLARREAL OUTPATIEN 5 5 [facility] 15 MINUTES OFFICE 47899 JEWISH PABLOTMVIC OUTPATIEN 5 5 HEALTH MONA T VISIT MEDICAL 15 GROUP MINUTES OFFICE 54414 ROMY MAYKING OUTPATIEN 5 5 PRIMARY LIS T VISIT CARE, [facility] 15 MINUTES HOSPITAL [facility] - 5 5 Y OUTPATIEN HOSPITAL T EMERGENCY 55393 [facility] 5 5 Y [facility] T VISIT HIGH/URGE NT SEVERITY EMERGENCY 62930 RAINS ALL RAINS ALL DEPT 5 5 VISIT HIGH SEVERITY& THREAT FUN EMERGENCY 39947 [facility]RIA ANDRIA DEPT 5 5 BILLY BILLY VISIT HIGH SEVERITY& THREAT [facility] OFFICE 95097 TIMO TIMO OUTPATIEN 5 5 NANNETTE NANNETTE T NEW 20 MINUTES EMERGENCY 13788 [facility] OR[facility] CHR DEPT 5 5 PRIMARY VISIT CARE HIGH PHYSICIAN SEVERITY& S THREAT [facility] OFFICE 66063 [place] PAIN FITZGERAL OUTPATIEN 5 5 CARE & D CHRISTIANO T VISIT [facility] 15 HIG MINUTES HOSPITAL [facility] - 5 5 JEWISH OUTPATIEN HOSP T PERIODIC 25958 ROMY NOBLE THE PREVENTIV 5 5 PRIMARY E MED EST CARE, [facility] PATIENT 40-64YRS HOSPITAL J[facility]ISH - 5 5 [facility] 37253 JEWISH 5 5 [facility] T VISIT MODERATE SEVERITY EMERGENCY 81374 VORKPOR VORKPOR 5 5 [facility] T VISIT HIGH/URGE NT SEVERITY HOSPITAL JEWISH - 5 5 [facility] T OFFICE 92648 JEWISH TIEN CARRASCO CONSULTAT 5 5 [facility] MEDICAL NEW/ESTAB GROUP PATIENT 40 MIN HOSPITAL CENTRAL - 4 4 JEWISH INPATIENT HOSP EMERGENCY 06375 TING VORKPOR DEPT 4 4 JERI JERI VISIT HIGH SEVERITY& THREAT FUNCJ OFFICE 29676 SHOSHANA HAM SHOSHANA HAM OUTPATIEN 4 4 T NEW 45 MINUTES OFFICE 94673 TINO FUNEZ GRE OUTPATIEN 4 4 ORTHOPEDI T VISIT C 15 ASSOCIAT MINUTES OFFICE 52591 TINO MARRERO OUTPATIEN 3 3 ORTHOPEDI T VISIT C 15 ASSOCIAT MINUTES OFFICE 34228 ROMY MARCELO THE OUTPATIEN 3 3 [facility] 15 MINUTES OFFICE 59708 ROMY ALFRED OUTPATIEN [address] [facility] 15 MINUTES OFFICE 68458 TINO MARRERO OUTPATIEN 3 3 ORTHOPEDI T VISIT C 15 ASSOCIAT MINUTES HOSPITAL [facility] - 3 3 Y OUTPATI HOSPITAL T OFFICE 93057 [facility] 3 Y T VISIT 5 HOSPITAL MINUTES OFFICE 68316 MARY JO HOPKINSOOR OUTPATIEN 3 3 MEDICAL SARWAT T VISIT SERV 15 FOUNDATIO MINUTES OFFICE 78521 MICHELLE ANTOINE CARIDAD OUTPATIEN 3 3 REGIONAL T NEW 30 FAMILY MINUTES [facility] MICHELLE - 3 3 REGIONAL OUTPATIEN MEDICAL T CENTE OFFICE 76763 ROMY VILLAGOMEZ OUTPATIEN 3 3 [facility] GIN [facility] 15 MINUTES OFFICE 45998 TINO MARRERO OUTPATIEN 3 3 ORTHOPEDI T VISIT C 25 ASSOCIAT MINUTES EMERGENCY 81700 [facility]ISH 3 [facility] H[facility]URGE NT [facility] JEWISH - 3 3 HEALTH OUTPATIEN JOIE T OFFICE 40496 TINO FUNEZ GRE OUTPATIEN 3 3 ORTHOPEDI T VISIT C 15 ASSOCIAT MINUTES OFFICE 97682 TINO FUNEZ GRE OUTPATIEN 3 3 ORTHOPEDI T VISIT C 15 ASSOCIAT MINUTES PERIODIC 97870 ROMY VILLAGOMEZ PREVENTIV 3 3 PRIMARY GIN E MED EST CARE, [facility] PATIENT 40-64YRS OFFICE 27144 MARY JO NASH OUTPATIEN 3 3 MEDICAL SARWAT T VISIT SERV 25 FOUNDATIO MINUTES OFFICE 91297 ROMY CR OUTPATIEN 2 2 PRIMARY T VISIT CARE, [facility] 15 MINUTES OFFICE 89724 TINO FUNEZ GRE OUTPATIEN 2 2 ORTHOPEDI T VISIT C 15 ASSOCIAT MINUTES OFFICE 35765 ROMY VILLAGOMEZ OUTPATIEN 2 2 PRIMARY GIN T VISIT CARE, [facility] 10 MINUTES OFFICE 58333 DEE DEE GRE DEE DEE GRE OUTPATIEN 2 2 T VISIT 15 MINUTES OFFICE 25995 ROMY VILLAGOMEZ OUTPATIEN 2 2 PRIMARY GIN T VISIT CARE, [facility] 15 MINUTES OFFICE 45567 DEE DEE GRE DEE DEE GRE OUTPATIEN 2 2 T VISIT 15 MINUTES OFFICE 55558 HERNANDO VILLAGOMEZ OUTPATIEN 2 2 GIN GIN T VISIT 10 MINUTES OFFICE 06626 DEE DEE GRE DEE DEE GRE OUTPATIEN 2 2 T VISIT 15 MINUTES OFFICE 06309 DEE DEE GRE DEE DEE GRE OUTPATIEN 2 2 T VISIT 15 MINUTES OFFICE 86050 DEE DEE GRE DEE DEE GRE OUTPATIEN 2 2 T VISIT 15 MINUTES OFFICE 84451 ROMY NICOLEPATIEN 2 2 [facility] DEPT 25 MINUTES EMERGENCY 75965 SAMIA [place] 1 1 EMERGENCY [facility] DEPARTMEN SERVICES T VISIT MODERATE SEVERITY HOSPITAL LILLIE [place] - 1 1 [facility] OUT[facility] T EMERGENCY 66556 LILLIE Judit 1 1 [facility] DEPARTMEN A T VISIT HIGH/URGE NT SEVERITY OFFICE 48898 [facility] OUT[facility]IG 1 1 [facility] T VISIT DEPT DEPT 10 MINUTES OFFICE 84957 [facility] 1 1 [facility] T VISIT 5 DEPT DEPT MINUTES OFFICE 48991 [facility] 1 1 [facility] T VISIT DEPT DEPT 10 MINUTES
--- OUTSIDE RECORDS SUMMARY | 2016-11-21 15:07 | External Medical Summary Rpt ---
Author Author , Organization [employer] Address Unknown Phone Unavailable Care Team Providers Care Bookkeepers Supervisor Name Role Phone DANICA LASHAE, DANICA Unavailable Unavailable LASHAE [employer] Unavailable Unavailable INC, [employer] [facility], Unavailable Unavailable [facility], [facility], Unavailable Unavailable [facility] Unavailable Unavailable [facility]ORATORI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 Unavailable Unavailable LABORATORI, 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, AY[facility] AND Unavailable Unavailable [facility] Unavailable Unavailable [facility] Unavailable Unavailable [facility], [facility] Unavailable Unavailable [facility] P[facility]MON[facility] & Unavailable Unavailable CR[facility], [facility] JOHNSON BENITA, JOHNSON Unavailable Unavailable BENITA [facility] Un[facility] Unavailable PHARMACY, [facility] BRIDGES AIDE, BRIDGES Unavailable Unavailable AIDE RIZZO TEN, RIZZO TEN Unavailable Unavailable SALINAS CAR, SALINAS Unavailable Unavailable CAR [facility], Unavailable Unavailable [facility] Unavailable Unavailable INC, [facility] Unavailable Unavailable INC, [facility] Unavailable Unavailable [facility], [facility] Unavailable Unavailable PRACTI, [facility]I [facility] Unavailable Unavailable MEDICAL CENT, [facility], Unavailable Unavailable [facility] [place] [...] SARWAT RODERICK III, RODERICK Unavailable Unavailable III [facility] Unavailable Unavailable ASSOCIAT, [facility] Unavailable Unavailable MEDICAL G, [facility] MEDICAL G BARBARA JUAN, BARBARA JUAN Unavailable Unavailable KOSTELIC JACKI, Unavailable Unavailable KOSTELIC JACKI KOUNS CARIDAD, KOUNS CARIDAD Unavailable Unavailable [facility] # Unavailable Unavailable [id number], [facility] # [id number] [facility] Un[facility] Un[facility] Un[facility] Unavailable Unavailable [facility] TIEN DANILO, TIEN DANILO Unavailable Unavailable [facility] Unavailable Unavailable COGOVT, [facility] Unavailable Unavailable COGOVT, [facility] AMARO AND, AMARO AND Unavailable Unavailable [facility] Unavailable Unavailable SERVICE, [facility] Unavailable Unavailable SERVICE[facility] Unavailable Unavailable DEPT[facility] Unavailable Unavailable DEPT, [facility], Unavailable Unavailable [facility], [facility], [facility] SHOSHANA HAM, SHOSHANA HAM Unavailable Unavailable SHOSHANA HAM, SHOSHANA HAM Unavailable Unavailable [facility] Unavailable Unavailable SERVICES, [facility] DOZIER JUAN, DOZIER Unavailable Unavailable [...] INC, RESP Unavailable Unavailable [facility] RICE N., RICE N. Unavailable Unavailable [facility], Unavailable Unavailable [facility] ORR CH[facility], OR[facility] CH[facility] Unavailable Unavailable MERLIN MAR, [facility] Unavailable Unavailable [facility] Unavailable Unavailable NETWORK, [facility] Unavailable Unavailable NETWORK[facility], Unavailable Unavailable [facility] STANDAFER, STANDAFER Unavailable Unavailable STUMBO, STUMBO Unavailable Unavailable VILLEGAS JOH, Unavailable Unavailable VILLEGASOVIDIO DEL VALLE, HARRISON Unavailable Unavailable ELIGIO TIKHFE MONA, Unavailable Unavailable TIMICHELAN MONA [facility] Unavailable Unavailable ASSIST, [facility], Unavailable Unavailable [facility] Unavailable Unavailable [place] [facility] VORKPOR JERI, VORKPOR Unavailable Unavailable JERI VORKPOR JERI, VORKPOR Unavailable Unavailable JERI [facility] # Unavailable Unavailable [id number], [facility] # [id number] SUZANNE PALACIOS Unavailable Unavailable RANI IV ALL, Unavailable Unavailable RANI IV ALL WILP THE, WILP THE Unavailable Unavailable Purpose Continuity of Care Document - 02-20-2002 through 2016 Problems Code Diagnosis DOS Provider Status [id number] INTENTIONAL 10-01-2016 [facility] SELF-HARM PHYSICIANS UNS SHARP ASSIST OBJECT INIT ENC Z048 ENCOUNTER 10-01-2016 [facility] EXAM & PHYSICIANS OBSERVATION ASSIST OTHER SPEC REASONS [id number] UNSPECIFIED 08-22-2016 ALIVIA FAYETTE INJURY OF URBAN HEAD COGOVT INITIAL ENCOUNTER S73587 EPILEPSY 08-08-2016 [facility] HOSPITAL INTRACT W/O STATUS EPILEPTICUS N55243 PAIN IN 08-08-2016 [facility] [place] LEFT HAND RADIOLOGY [id number] UNSPECIFIED 08-08-2016 [facility] W[facility]ST HAND FINGERS INITIAL N01SYVV UNSPECIFIED 08-08-2016 [facility] INITIAL SERV ENCOUNTER J47463 OTHER LONG 08-08-2016 [facility] CURRENT DRUG THERAPY Z309 ENCOUNTER 06-15-2016 [facility] FOR PRIMARY CONTRACEPTI CARE, [facility] VE MANAGEMENT UNS [id number] PRIMARY 01-14-2016 [facility] OSTEO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 EXAM PRIMARY GENERAL RTN CARE, [facility] W/O ABNORMAL FIND Z302 ENCOUNTER 12-08-2015 [facility] FOR PRIMARY STERILIZATI CARE, [facility] ON T20059 LOC-REL SX 09-28-2015 [facility] EPILEPSY HEALTH W/CPS NOT MEDICAL G INTRACT W/O SE R569 UNSPECIFIED 09-28-2015 [facility] CONVULSIONS MEDICAL G R05 COUGH 09-26-2015 [facility] [place] [facility] R0602 SHORTNESS 09-24-2015 [facility] [place] OF BREATH RADIOLOGY K8020 CALCULUS GB 09-23-2015 [facility] [place] W/O RADIOLOGY CHOLECYSTIT IS W/O OBSTRUCTION B47752 EPILEPSY 09-21-2015 [facility] UNS NANNETTE INTRACTABLE W/O STATUS EPILEPTICUS R9401 ABNORMAL 09-21-2015 [facility] ELECTROENCE NANNETTE PHALOGRAM EEG Z3002 COUNSELING 06-19-2015 [facility] PRIMARY NATURAL FAM CARE, [facility] PLAN AVOID PREG R4182 ALTERED 04-01-2015 ALIVIA FAYETTE MENTAL URBAN STATUS COGOVT UNSPECIFIED Z008 ENCOUNTER 04-01-2015 [facility] N EMERGENCY GENERAL SERV EXAMINATION D19671 PAIN IN 03-23-2015 [facility] UNSPECIFIED PRIMARY SHOULDER CARE, [facility] M609 MYOSITIS 03-19-2015 [facility] [id number] MYALGIA 03-19-2015 [facility] [id number] GENERALIZED 01-27-2015 [facility] ANXIETY PRIMARY DISORDER CARE, [facility] 97710 UNSPEC 01-27-2015 [facility] EPILEPSY PRIMARY WITHOUT CARE, [facility] MENTION INTRACT EPILEPSY 3899 UNSPECIFIED 01-23-2015 [facility] HOSPITAL LOSS 7802 SYNCOPE AND 01-23-2015 [place] [facility] 09427 OTHER 01-23-2015 [facility] 7804 DIZZINESS 01-23-2015 [facility] GIDDINESS 25764 OTHER 01-18-2015 [place] [facility] CONDITIONS SERV OF BRAIN FOUNDATION 4371 OTH 01-18-2015 [place] [facility] GENERALIZED SERV [facility] CEREBROVASC ULAR DISEASE 19928 ALTERED 01-18-2015 ALIVIA FAYETTE MENTAL URBAN STATUS COGOVT 7840 HEADACHE 01-18-2015 ANDRIA BILLY 17121 LOC-REL 12-12-2014 [facility] EPILEPSY & NANNETTE ES W/SPS W/INTRACTAB LE EPIL V700 ROUTINE 12-12-2014 [facility] GENERAL NANNETTE MEDICAL EXAM@HEALTH CARE FACL 89032 PAIN IN 12-09-2014 [facility] [place] JOINT, RADIOLOGY SHOULDER REGION 7241 PAIN IN 12-09-2014 [facility] [place] THORACIC RADIOLOGY SPINE 74929 OBESITY, 12-01-2014 [place] PAIN UNSPECIFIED CARE & [facility] 7242 LUMBAGO 12-01-2014 [place] [facility] V7109 OBSERVATION 12-01-2014 [place] PAIN OF OTHER CARE & SUSPECTED [facility] CONDITION 41016 NONSPECIFIC 11-20-2014 [facility] ABNORMAL [facility] PHALOGRAM 54461 IRRITABILIT 11-20-2014 [facility] V154 PERS HX 11-03-2014 DEPT FOR PSYCHOLOGIC PUBLIC HLTH AL TRAUMA PRS [facility] 2724 OTHER AND 09-26-2014 [facility] UNSPECIFIED PRIMARY CARE, [facility] HYPERLIPIDE GEOVANNA V2504 CNSL&INSTRC 09-17-2014 [place] [facility] NATURAL FAM PLANNG AVOID PREG V258 OTHER 09-16-2014 [facility] SPECIFIED PRIMARY CONTRACEPTI CARE, [facility] VE MANAGEMENT 7295 PAIN IN 08-15-2014 [facility] [place] SOFT RADIOLOGY TISSUES OF LIMB 8290 CLOSED 08-15-2014 [facility] FRACTURE OF AMBULANCE SERVICE UNSPECIFIED BONE 15030 CONTUSION 08-15-2014 [facility] 73927 CONTUSION 08-15-2014 [facility] MULTIPLE SITES SHOULDER&UP PER ARM E9179 OTHER 08-15-2014 [facility] STRIKING AGAINST W/WO SUBSEQUENT FALL 5990 URINARY 02-17-2014 [facility] TRACT PRIMARY INFECTION CARE, [facility] SITE NOT SPECIFIED 7881 DYSURIA 02-17-2014 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 69210 URINARY 02-17-2014 [facility] FREQUENCY 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I 02040 02-17-2014 [facility] [place] 44668 GEN CONVUL 02-09-2014 [facility] PULMONARY & W/O MENTION CRITICAL INTRACT EPILEPSY 2762 ACIDOSIS 02-08-2014 [facility] 02209 DEHYDRATION 02-08-2014 [facility] V1581 PERS HX 02-08-2014 [facility] NONCOMPLIAN [facility] CE W/MED TX HOSP PRS HAZARDS HLTH 7197 DIFFICULTY 10-06-2013 HOME IN WALKING CONVALESCEN T AIDS INC 8249 UNSPECIFIED 10-06-2013 HOME OPEN CONVALESCEN FRACTURE OF T AIDS INC ANKLE V7241 08-27-2013 [place] EXAMINATION LABS, [facility] OR TEST NEGATIVE RESULT 02078 PAIN IN 08-12-2013 [facility] SIMMS JOINT, ANKLE AND FOOT 28725 PAIN IN 06-04-2013 [place] [facility], ORTHOPEDIC LOWER LEG ASSOCIAT 8441 SPRAIN AND 06-04-2013 [place] STRAIN OF ORTHOPEDIC MCL OF KNEE ASSOCIAT 18321 CONTUSION 05-31-2013 [facility] OF THIGH PRIMARY CARE, [facility] V2509 OTH GENERAL 05-31-2013 [facility] PRIMARY CNSL&ADVICE CARE, [facility] CONTRACEPT MANAGEMENT 75689 RESTLESS 05-17-2013 [facility] LEGS PRIMARY SYNDROME CARE, [facility] 3569 UNSPEC 05-17-2013 [facility] HEREDIT&IDI PRIMARY OPATHIC CARE, [facility] PERIPHERAL NEUROPATHY 5589 OTH&UNSPEC 05-17-2013 [facility] NONINFECTIO PRIMARY US CARE, [facility] GASTROENTER ITIS&COLITI S 8960 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 PROSTH INC W/O MENTION COMP 8244 CLOSED 03-12-2013 [place] BIMALLEOLAR ORTHOPEDIC FRACTURE ASSOCIAT 06555 DYSARTHRIA 02-08-2013 [facility] V5869 LONG-TERM 02-08-2013 [facility] (CURRENT[facility] USE OF OTHER MEDICATIONS 01419 OTHER 11-06-2012 [facility] [place] NONSPECIFIC RADIOLOGY ABNORMAL FINDING OF LUNG FIELD 70926 HYPOXEMIA 11-06-2012 [facility] PR[facility] 56904 HYPERTENSIO 11-06-2012 [facility] REGIONAL FAMILY PRACTI E8889 UNSPECIFIED 11-06-2012 [facility] [place] PRACTI 3384 CHRONIC 11-05-2012 [facility] PAIN [facility] 8248 UNSPECIFIED 11-02-2012 [facility] CLOSED PRIMARY FRACTURE OF CARE, [facility] ANKLE 8246 CLOSED 10-29-2012 [facility] R FRACTURE SERVICES E8859 FALL FROM 10-29-2012 [facility] OTHER EMERGENCY SLIPPING SERVICES TRIPPING OR STUMBLING V4973 LOWER LIMB 10-29-2012 [facility] AMPUTATION, EMERGENCY FOOT SERVICES 01701 CLOSED 10-17-[address] [facility] FRACTURE OF ORTHOPEDIC SHAFT OF ASSOCIAT FIBULA 7812 ABNORMALITY 07-12-2012 [place] OF [facility] ORTHOPEDIC ASSOCIAT 1121 CANDIDIASIS 07-10-2012 [facility] OF VULVA PRIMARY AND VAGINA CARE, [facility] 6235 LEUKORRHEA 07-10-2012 [facility] NOT ESOTERIC SPECIFIED LABORATORI INFECTIVE V7231 ROUTINE 07-10-2012 [facility] GYNECOLOGIC PRIMARY AL CARE, [facility] EXAMINATION V762 SCREENING 07-10-2012 [facility] FOR PRIMARY MALIGNANT CARE, [facility] NEOPLASM OF THE CERVIX 6260 ABSENCE OF 06-11-2012 [place] MENSTRUATIO LABS, [facility] N [address] SEC 04-12-2012 [place] LOCALIZED ORTHOPEDIC OSTEOARTHRO ASSOCIAT SIS SHOULDER REGION 69508 COMPLETE 04-12-2012 [place] RUPTURE OF ORTHOPEDIC ROTATOR ASSOCIAT CUFF V0481 NEED 04-09-2012 [facility] PROPHYLACTI PRIMARY C CARE, [facility] VACCINATION &INOCULATIO N FLU 7260 ADHESIVE 01-19-2012 DEE DEE GRE CAPSULITIS OF SHOULDER 94468 EFFUSION OF 01-12-2012 [place] SHOULDER OPEN MRI JOINT 22483 UNSPEC 01-12-2012 [place] DISORDERS OPEN MRI BURSAE&TEND ONS SHOULDER REGION 8406 SUPRASPINAT 01-12-2012 [place] US SPRAIN OPEN MRI AND STRAIN 85966 COMA 12-22-2011 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 56207 SCOLIOSIS , 10-03-2011 [place] IDIOPATHIC OPEN MRI 8970 TRAUMAT AMP 09-13-2011 RESP A CARE LEG UNILAT INC BELW KNEE W/O COMP 13910 CLOSED 09-01-2011 DEE D[facility] GRE FRACTURE OF UNSPECIFIED PART OF HUMERUS 2662 OTHER 06-23-2011 [facility] B-COMPLEX HEALTH DEPT DEFICIENCIE S V2549 SURVEILLANC 06-23-2011 [facility] E OTH PREV HEALTH DEPT PRSC CONTRACEPT METHOD V8533 BODY MASS 06-23-2011 [facility] INDEX HEALTH DEPT 33.0-33.9 ADULT 9592 INJURY 05-29-2011 [place] [facility] OTHER&UNSPE SERV CIFIED [facility] SHOULDER&UP PER ARM V5411 AFTERCARE 05-29-2011 [place] [facility] HEALING SERV TRAUMATIC [facility] FRACTURE UPPER ARM 21375 PAIN IN 05-25-2011 [facility] JOINT, AMBULANCE UPPER ARM SERVICE 7869 OTH 05-25-2011 [place] [facility] SYMPTOMS SERV INVOLVING [facility] RESPIRATORY SYSTEM&CHES T [address] CLOSED 05-25-2011 [place] [facility] FRACTURE OF SERV SURGICAL [facility] NECK OF HUMERUS 32314 OTHER WRIST 05-25-2011 [place] [facility] SPRAIN AND SERV STRAIN [facility] 24295 CLOSED 04-16-2011 [facility]RACTURE [facility] UNSPEC PART UPPER END HUMERUS 30546 OTHER 01-07-2011 [facility] FATIGUE NETWORK V3000 SINGLE 02-22-2002 [facility] PEDIA W/O Medications Na ND Rx Da Fi Fi Am Da Di Ph RX Ph St me C No te ll ll ou ys ag ar # ys at rm s nt no ma ic us Or Da si cy ia de te s n re d RI 68 05 06 30 30 00 KR Ac SP 38 -1 -0 .0 00 OG ti ER 20 5- 9- 00 06 ER ve ID 11 20 20 14 ON 51 17 17 99 PH E 4 65 AR 2 MA MG CY TA L- BL 76 ET 8 IB 55 05 06 90 30 00 KR Ac UP 11 -1 -0 .0 00 OG ti RO 10 6- 9- 00 06 ER ve FE 68 20 20 14 N 40 17 17 99 PH 80 5 66 AR 0 MA MG CY TA L- BL 76 ET 8 TN 65 05 05 30 30 00 KR [...] MG L- TA 76 BL 8 ET TN 65 04 04 30 30 00 KR Ac IM 16 -0 -2 .0 00 OG ti ID 20 4- 8- 00 06 ER ve ON 54 20 20 16 E 41 17 17 85 PH 50 0 16 AR MA MG CY TA L- BL 76 ET 8 DI 68 03 04 90 30 00 KR Ac VA 38 -1 -1 .0 00 OG ti LP 20 6- 4- 00 06 ER ve RO 31 20 20 16 EX 50 17 17 46 PH 1 50 AR SO MA D CY ER L- 50 76 0 8 MG TA B RI 68 03 04 30 30 00 KR Ac SP 38 -1 -0 .0 00 OG ti ER 20 1- 7- 00 06 ER ve ID 11 20 20 11 ON 51 17 17 85 PH E 4 87 AR 2 MA MG CY TA L- BL 76 ET 8 LA 68 03 04 60 30 00 KR Ac MO 38 -1 -0 .0 00 OG ti TR 20 3- 7- 00 06 ER ve IG 00 20 20 16 IN 80 17 17 35 PH E 1 78 AR 10 MA 0 CY MG L- TA 76 BL 8 ET TN 65 03 03 30 30 00 KR Ac IM 16 -0 -3 .0 00 OG ti ID 20 5- 1- 00 06 ER ve ON 54 20 20 13 E 41 17 17 24 PH 50 0 43 AR MA MG CY TA L- BL 76 ET 8 NA 00 03 03 28 14 00 KR Ac TN 09 -0 -3 .0 00 OG ti [...] CY TA L- BL 76 ET 8 TN 65 02 03 30 30 00 KR [...] MG L- TA 76 BL 8 ET TN 65 01 02 30 30 00 KR [...] 08 S GE [address] OR ER LY ON E PH 15 AR [...] CY TA L- BL 76 ET 8 TN 65 12 01 30 30 00 KR Ac IM 16 -0 -0 .0 00 OG ti ID 20 9- 9- 00 06 ER ve ON 54 20 [...] S TE GE [address] OR I ER LY ON E PH 15 [...] R BL 24 J ET 76 8 CI 55 04 04 0 14 7 KR 60 OV Ac TN 11 -1 -1 0. OG 96 ER ti OF 10 1- 1- 00 ER 13 BE ve LO 12 20 20 0 4 E XA 70 16 16 PH TE CI 1 AR RR N MA I HC CY L # 50 0 24 MG 76 8 TA B TO 68 04 04 2 60 30 [...] # TA 24 BL 76 ET 8 IB 55 04 04 3 90 22 [...] SPLIT VIRUS 0.5 ML DOSAGE IM USE Procedures Procedure DOS Code Location Performer Comment AMBULANCE A0429 ALIVIA ALIVIA SERVICE 7 FAYETTE FAYETTE BLS [facility] EMERGENCY COG[facility] COGOVT TRANSPORT GROUND A0425 ALIVIA ALIVIA MILEAGE 7 FAYETTE FAYETTE PER URBAN URBAN STATUTE COGOVT COGOVT MILE RADEX 38732 [facility] [place] RODERICK HAND 7 RADIOLOGY III MINIMUM 3 VIEWS DRUG 29249 [facility] ASSAY 7 HEALTH HEALTH VALPROIC [facility] DIPROPYLA CETIC ACID TOTAL DRUG 55278 [facility] SCREEN 7 HEALTH HEALTH QUANTITAT [facility] HELGA LAMOTRIGI NE COLLECTIO 49543 [facility] N VENOUS 7 HEALTH HEALTH BLOOD [facility] VENIPUNCT URE COMPREHEN 95840 [facility] SIVE 7 HEALTH HEALTH METABOLIC [facility] PANEL THERAPEUT 71112 [facility] 7 [facility] TIC/DX INJECTION SUBQ/IM INJECTION J1050 [facility] 7 [facility]IMARY MEDROXYPR [facility]ARE[facility] OGESTERON E ACETATE 1 MG RADEX 43036 [facility] N. SHOULDER 6 RADIOLOGY COMPLETE ASSOC MINIMUM 2 VIEWS THERAPEUT 97925 [facility] 6 PRIMARY [address] PROPHYLAC CARE[facility] TIC/DX INJECTION SUBQ/IM INJECTION J1050 [facility] 6 PR[address] MEDROXYPR CARE[facility] OGESTERON E ACETATE 1 MG SBSQ 52891 [facility] 6 [place] [facility]/DAY MEDICAL 25 G MINUTES RADIOLOGI 66077 [facility] [place] WESTERFIE C 6 RADIOLOGY LD IV ALL EXAMINATI ON CHEST SINGLE VIEW FRONTAL RADIOLOGI 16659 [facility] [place] KOSTELIC C 6 RADIOLOGY JACKI EXAMINAT[place] [address] [facility] [place] DANICA ABDOMEN & 6 RADIOLOGY LASHAE PELVIS W/O CONTRAST MATERIAL LOCALIZE 20904 [facility] TIMO CEREBRAL 6 NANNETTE NANNETTE SEIZURE CABLE/RAD IO EEG/[place] [address] [facility] [place] DANICA HEAD/BRAI 6 RADIOLOGY LASHAE N W/O CONTRAST MATERIAL AMB A0427 ALIVIA ALIVIA SERVICE 6 FAYETTE FAYETTE ALS URBAN URBAN EMERGENCY COGOVT COGOVT TRANSPORT LEVEL 1 RADIOLOGI 31236 [facility] [place] FRANK C 6 RADIOLOGY QUINTEN EXAMINATI ON CHEST SINGLE VIEW FRONTAL INITIAL 27930 [facility] INPATIENT 6 [facility] CONSULT MEDICAL NEW/ESTAB G PT 110 MIN GROUND A0425 ALIVIA ALIVIA MILEAGE 6 FAYETTE FAYETTE PER URBAN URBAN STATUTE COGOVT COGOVT MILE THERAPEUT 26066 [facility] ALFRED IC 6 [facility] TIC/DX INJECTION SUBQ/IM THERAPEUT 95071 [facility] VILLARREAL IC 6 [facility] TIC/DX INJECTION SUBQ/IM INJECTION J1050 [facility] RIZZO TEN 6 [facility] OGESTERON E ACETATE 1 MG DRUG 30324 [facility] ASSAY 5 [facility] DIPROPYLA CETIC ACID TOTAL BLOOD 04694 [facility] COUNT 5 [facility] COMPLETE [facility] HOSP AUTO&AUTO DIFRNTL WBC COMPREHEN 70485 [facility] SIVE 5 [facility] METABOLIC [facility]OSP PANEL COLLECTIO 36255 [facility] N VENOUS 5 [facility] BLOOD [facility] HOSP VENIPUNCT URE GROUND A0425 ALIVIA ALIVIA MILEAGE 5 FAYETTE FAYETTE PER URBAN URBAN STATUTE COGOVT COGOVT MILE AMB A0427 ALIVIA ALIVIA SERVICE 5 FAYETTE FAYETTE ALS URBAN URBAN EMERGENCY COGOVT COGOVT TRANSPORT LEVEL 1 INJECTION J1050 [facility] RIZZO TEN 5 [facility] OGESTERON E ACETATE 1 MG THERAPEUT 32844 [facility] RIZZO TEN IC 5 [facility] TIC/DX INJECTION SUBQ/IM ECG 23515 [place] TEJEDA ROUTINE 5 MEDICAL NAN ECG SERV W/LEAST FOUNDAT[facility] 12 LDS N I&R ONLY GROUND A0425 ALIVIA ALIVIA MILEAGE 5 FAYETTE FAYETTE PER URBAN URBAN STATUTE COGOVT COGOVT MILE AMB A0427 ALIVIA ALIVIA SERVICE 5 FAYETTE FAYETTE ALS URBAN URBAN EMERGENCY COGOVT COGOVT TRANSPORT LEVEL 1 AMB A0427 ALIVIA ALIVIA SERVICE 5 FAYETTE FAYETTE ALS URBAN URBAN EMERGENCY [place]SP[place] [address] [place] [address] [place] HEAD/BRAI 5 MEDICAL EDW N W/O SERV CONTRAST FOUNDATIO MATERIAL N GROUND A0425 ALIVIA ALIVIA MILEAGE 5 FAYETTE FAYETTE PER URBAN URBAN STATUTE COGOVT COGOVT MILE SBSQ 76085 [facility] 5 NE [facility] CARE/DAY MEDICAL 35 G MINUTES INITIAL 93478 [facility] INPATIENT 5 [facility] CONSULT MEDICAL NEW/ESTAB G PT 55 MIN RADEX 14174 [facility] [place] SALINAS SCAPULA 5 RADIOLOGY CAR COMPLETE RADEX 83022 [facility] [place] SHOULDER 5 RADIOLOGY LD IV ALL COMPLETE MINIMUM 2 VIEWS RADEX 25287 [facility] [place] SALIN[place] SPINE 5 RADIOLOGY [place] [place] [address] [facility] [place] HEAD/BRAI 5 RADIOLOGY LD IV ALL N W/O CONTRAST MATERIAL ELECTROEN 78465 [facility] TIKHTMAN CEPHALOGR 5 HEALTH MONA AM W/REC MEDICAL AWAKE&ASL GROUP EEP URINE 09524 [facility] LABS, LLC LABS, LLC TEST VISUAL COLOR CMPRSN METHS INJECTION J1050 [facility] MERLIN MAR 5 [facility] OGESTERON E ACETATE 1 MG THERAPEUT 06982 [facility] MERLIN MAR IC 5 [facility] TIC/DX INJECTION SUBQ/IM RADEX 47342 [facility] HUMERUS 5 [facility] 2 [facility] VIEWS SHOULDER L3660 GOULDS GOULDS ORTHOSIS 5 DISCOUNT DISCOUNT FIG 8 MEDICAL MEDICAL CANVAS WEBBING PREFAB AMBULANCE A0429 [facility] SERVICE 5 CO CO BLS AMBULANCE AMBULANCE EMERGENCY SERVICE SERVICE TRANSPORT GROUND A0425 [facility] MILEAGE 5 CO CO PER AMBULANCE AMBULANCE STATUTE SERVICE SERVICE MILE RADEX 82641 [place] SHOULDER [address] [facility] COMPLETE [facility] MINIMUM 2 VIEWS BILIRUBIN 26770 [place] DIRECT 5 [facility] COLLECTIO 05396 [place] N VENOUS 5 [facility] BLOOD [facility] VENIPUNCT URE COMPREHEN 52032 [place] SIVE 5 [facility] METABOLIC [facility] PANEL THERAPEUT 77682 [place] OVERBEE IC [address] PROPHYLAC CARE, [facility] TIC/DX INJECTION SUBQ/IM URNLS DIP 82532 [facility] 4 [facility], [facility] STICK/TAB LET REAGENT AUTO MICROSCOP Y INJECTION J0696 [place] [address] PRIMARY PRIMARY [facility] CARE, [facility] CARE, LLC NE SODIUM PER 250 MG CULTURE 42434 TONGAN TONGAN BACTERIAL 4 ESOTERIC 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 LABORATOR QUANTTATI I I VE COLONY COUNT URINE URINE 56385 [facility] 4 [facility] TEST VISUAL COLOR CMPRSN METHS NONEMERGE A0100 [facility] 4 TRANSPORT TRANSPORT ATION; ATION SER [facility] [address] [facility] AND DISCHARGE 4 MEDICINE DAY SERVICES, MANAGEMEN T > 30 MIN SBSQ 68610 [place] [address] NEUROLOGY RYA CARE/DAY SERVICES 25 MINUTES INITIAL 35056 [place] [address] MEDICINE CARE/DAY SERVICES, 70 MINUTES SBSQ 47914 [place] [address] NEUROLOGY RYA CARE/DAY SERVICES 25 MINUTES INITIAL 11525 [facility] [facility] 4 NEUROLOGY TIM CARE/DAY CENTER 70 ALIVIA MINUTES SBSQ 44898 [facility] [place] 4 PULMONARY JUAN CARE/DAY & 35 CRITICAL MINUTES AMB A0422 [facility] OXYGEN&O2 4 CO CO SUPPLIES AMBULANCE AMBULANCE LIFE SERVICE SERVICE SUSTAININ G SITUATION AMB A0427 [facility] SERVICE 4 CO CO ALS AMBULANCE AMBULANCE EMERGENCY SERVICE [place] [address] [facility] [place] FRANK HEAD/BRAI 4 RADIOLOGY QUINTEN N W/O CONTRAST MATERIAL RADIOLOGI 18755 VORKPOR VORKPOR C 4 JERI JERI EXAMINATI ON CHEST SINGLE VIEW FRONTAL GROUND A0425 [facility] MILEAGE 4 CO CO PER AMBULANCE AMBULANCE STATUTE SERVICE SERVICE MILE ECG 83402 VORKPOR VORKPOR ROUTINE 4 JERI JERI ECG W/LEAST 12 LDS I&R ONLY STANDARD K0001 HOME HOME WHEELCHAI 4 CONVALESC CONVALESC R ENT AIDS ENT AIDS INC INC STANDARD K0001 HOME HOME WHEELCHAI 4 CONVALESC CONVALESC R ENT AIDS ENT AIDS INC INC THERAPEUT 30439 [facility] IC 4 PRIMARY PRIMARY PROPHYLAC CARE, [facility] CARE, [employer] TIC/DX INJECTION SUBQ/IM URINE 00869 [facility] 4 aCon, CultureIQ, [employer] TEST VISUAL COLOR CMPRSN METHS DRUG SCR [...] ENT AIDS ENT AIDS INC INC RADIOLOGI 47716 MANJUBRIDGETKatie DEE DEE MARRERO C 3 ORTHOPEDI EXAMINATI C ON KNEE ASSOCIAT 1/2 VIEWS URINE 60835 [facility] 3 LABS, [employer], [employer] TEST VISUAL COLOR CMPRSN METHS THERAPEUT 61820 [facility] 3 PRIMARY PROPHYLAC CARE, LLC TIC/DX INJECTION SUBQ/IM INJECTION J1050 ROMY NOBLE THE 3 PRIMARY MEDROXYPR CARE, [facility] OGESTERON E ACETATE 1 MG FT INSRT L3010 [facility] REMV MOLD 3 BRACE BRACE PT MDL PROSTH PROSTH LNGTUD INC INC ARCH SUPP EA STANDARD K0001 [facility] WHEELCHAI 3 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 CONVALESC R ENT AIDS ENT AIDS INC INC RADEX 56564 [place] DEE DEE GRE ANKLE 3 ORTHOPEDI COMPLETE C MINIMUM 3 ASSOCIAT VIEWS APPLICATI 16225 [place] DEE DEE GRE ON SHORT 3 ORTHOPEDI LEG CAST C BELOW ASSOCIAT KNEE-TOE STANDARD K0001 HOME HOME WHEELCHAI 3 CONVALESC CONVALESC R ENT AIDS ENT AIDS INC INC COMMODE E0163 HOME HOME CHAIR 3 CONVALES CONVALESC MOBILE OR ENT AIDS ENT AIDS INC INC STATIONAR Y W/FIXED ARMS RADIOLOGI 19891 MICHELLE MARTINEZ C 3 REGIONAL REGIONAL EXAMINATI MEDICAL MEDICAL ON CHEST CENTE CENTE SINGLE VIEW FRONTAL GROUND A0425 [facility] MILEAGE 3 CO CO PER AMBULANCE AMBULANCE STATUTE SERVICE SERVICE MILE NONINVASI 03502 MICHELLE MARTINEZ VE 3 REGIONAL REGIONAL EAR/PULSE MEDICAL MEDICAL OXIMETRY CENTE CENTE SINGLE DETER INJECTION J2250 MICHELLE MARTINEZ 3 REGIONAL REGIONAL MIDAZOLAM MEDICAL MEDICAL HCL PER CENTE CENTE 1 MG INJECTION J0690 MICHELLE MARTINEZ 3 REGIONAL REGIONAL CEFAZOLIN MEDICAL MEDICAL SODIUM CENTE CENTE 500 MG INJECTION J1650 MICHELLE MARTINEZ 3 REGIONAL REGIONAL ENOXAPARI MEDICAL MEDICAL N SODIUM CENTE CENTE 10 MG INJECTION J2710 MICHELLE MARTINEZ 3 REGIONAL REGIONAL NEOSTIGMI MEDICAL MEDICAL NE CENTE CENTE METHYLSUL FATE UP TO 0.5 MG INJECTION J3010 MICHELLE MARTINEZ FENTANYL 3 REGIONAL REGIONAL CITRATE MEDICAL MEDICAL 0.1 MG CENTE CENTE FLUOROSCO 00024 MICHELLE MARTINEZ PY SPX >1 3 REGIONAL REGIONAL HOUR MEDICAL MEDICAL PHYS/QHP CENTE CENTE TIME INJECTION J0330 MICHELLE MARTINEZ 3 REGIONAL REGIONAL SUCCINYLC MEDICAL MEDICAL HOLINE CENTE CENTE CHLORIDE UP TO 20 MG INJECTION J2405 MICHELLE MARTINEZ 3 REGIONAL REGIONAL ONDANSETR MEDICAL MEDICAL ON HCL CENTE CENTE PER 1 MG H[facility] G0378 MICHELLE MARTINEZ OBSERVATI 3 REGIONAL REGIONAL ON MEDICAL MEDICAL SERVICE CENTE CENTE PER HOUR INJECTION J1100 MICHELLE MARTINEZ 3 REGIONAL REGIONAL DEXAMETHO MEDICAL MEDICAL SONE CENTE CENTE SODIUM PHOSPHATE 1 MG ANES OPEN 12533 SHAWN TERRY PROC 3 LTH ELIGIO BONES ANESTHESI LOWER A PSC LEG/ANKLE /FOOT NOS BASIC 88534 IMCHELLE MARTINEZ METABOLIC 3 REGIONAL REGIONAL PANEL MEDICAL MEDICAL CALCIUM CENTE CENTE TOTAL GONADOTRO 12730 MICHELLE MARTINEZ PIN 3 REGIONAL REGIONAL CHORIONIC MEDICAL MEDICAL CENTE CENTE QUALITATI VE BLOOD 05855 MICHELLE MARTINEZ COUNT 3 REGIONAL REGIONAL COMPLETE MEDICAL MEDICAL AUTOMATED CENTE CENTE OPEN 65430 MICHELLE MARTINEZ TREATMENT 3 REGIONAL REGIONAL MEDICAL MEDICAL BIMALLEOL CENTE CENTE AR ANKLE FRACTURE INJECTION J2001 MICHELLE MARTINEZ 3 REGIONAL REGIONAL LIDOCAINE MEDICAL MEDICAL HCL CENTE CENTE INTRAVENO US INFUS 10 MG INJECTION J1170 MICHELLE MARTINEZ 3 REGIONAL REGIONAL HYDROMORP MEDICAL MEDICAL THAD UP CENTE CENTE TO 4 MG GROUND A0425 [facility] MILEAGE 3 CO CO PER AMBULANCE AMBULANCE STATUTE SERVICE SERVICE MILE AMB A0427 [facility] SERVICE 3 CO CO ALS AMBULANCE AMBULANCE EMERGENCY SERVICE SERVICE TRANSPORT LEVEL 1 THERAPEUT 57530 [place] IC [address] [facility] HEALTH PROPHYLAC [facility] TIC/DX INJECTION SUBQ/IM RADEX 05101 [place] ANKLE [address] [facility] HEALTH COMPLETE [facility] MINIMUM 3 VIEWS RADIOLOGI 86904 [place] C [address] [facility] HEALTH EXAMINATI [facility] ON TIBIA & FIBULA 2 VIEWS CLTX 49651 SAMIA STARK TRIMALLEO 3 EMERGENCY PAMELA LAR ANKLE SERVICES FX W/O MANIPULAT ION RADIOLOGI 87966 TINO FLORENCEU GRE C 3 ORTHOPEDI EXAMINATI C ON KNEE ASSOCIAT 1/2 VIEWS URINE 16177 [facility] 3 LABS, LLC LABS, LLC TEST VISUAL COLOR CMPRSN METHS RADIOLOGI 55765 TINO DEED EE GRE C 3 ORTHOPEDI EXAMINATI C ON KNEE ASSOCIAT 1/2 VIEWS CLTX PROX 87425 TINO FLORENCEU GRE 3 ORTHOPEDI FIBULA/SH C FT FX W/O ASSOCIAT MANJ IADNA 95769 TONGAN TONGAN TRICHOMON 3 ESOTERIC 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 LABORATOR VAGINALIS I I DIRECT PROBE TQ CYTP C/V 29417 TONGAN TONGAN AUTO THIN 3 ESOTERIC ESOTERIC LYR LABORATOR LABORATOR PREPJ SCR I I MNL RESCR PHYS IADNA 57603 TONGAN TONGAN PAPILLOMA 3 ESOTERIC ESOTERIC VIRUS LABORATOR LABORATOR HUMAN I I AMPLIFIED PROBE TQ IADNA 06718 TONGAN TONGAN GARDNEREL 3 ESOTERIC ESOTERIC LA LABORATOR LABORATOR VAGINALIS I I DIRECT PROBE TQ IADNA 36202 TONGAN TONGAN TRENT 3 ESOTERIC ESOTERIC SPECIES LABORATOR LABORATOR DIRECT I I PROBE TQ THERAPEUT 99883 ROMY VILLAGOMEZ IC 3 PRIMARY GIN PROPHYLAC CARE, [facility] TIC/DX INJECTION SUBQ/IM URINE 64131 [facility] 3 LABS, [employer], [employer] TEST VISUAL COLOR CMPRSN METHS ARTHROCEN 70121 TINO DEE DEE GRE TESIS 2 ORTHOPEDI ASPIR&/IN C J MAJOR ASSOCIAT JT/BURSA W/O US INJECTION J1050 HERNANDO VILLAGOMEZ 2 GIN GIN MEDROXYPR OGESTERON E ACETATE 1 MG MRI ANY 79705 JOIE RASHEED JT UPPER 2 OPEN MRI DELORIS EXTREMITY W/O CONTRAST MATRL RADEX 16878 [place] LARSEN SHOULDER 2 OPEN MRI AIDE COMPLETE MINIMUM 2 VIEWS URINE 35415 [facility] 2 aCon, CultureIQ, Perfect [employer] TEST VISUAL COLOR CMPRSN METHS DRUG 00767 TONGAN TONGAN ASSAY 2 ESOTERIC ESOTERIC VALPROIC LABORATOR LABORATOR DIPROPYLA I I CETIC ACID TOTAL BLOOD 79278 TONGAN TONGAN COUNT 2 ESOTERIC ESOTERIC COMPLETE LABORATOR LABORATOR AUTO&AUTO I I DIFRNTL WBC COMPREHEN 14535 TONGAN TONGAN SIVE 2 ESOTERIC ESOTERIC METABOLIC LABORATOR LABORATOR PANEL I I RADEX 86697 JOIE LARSEN SPINE 2 OPEN MRI AIDE LUMBOSACR AL MINIMUM 4 VIEWS RADEX 46830 JOIE RASHEED SPINE 2 OPEN MRI DELORIS THORACIC 2 VIEWS COMMODE E0163 RESP A RESP A CHAIR [address] [place] [address] INC MOBILE OR STATIONAR Y W/FIXED ARMS URINE 75533 [facility] 2 LABS, CultureIQ, Perfect Market TEST VISUAL COLOR CMPRSN METHS ARTHROCEN 29530 DEE DEE GRE DEE DEE GRE TESIS 2 ASPIR&/IN J MAJOR JT/BURSA W/O US INJECTION J3302 DEE DEE GRE DEE DEE GRE 2 TRIAMCINO LONE DIACETATE PER 5 MG RADEX 43886 DEE DEE GRE DEE DEE GRE SHOULDER 2 1 VIEW INJ J1055 [facility] MDRXYPRGE 2 CO HEALTH CO HEALTH STRON DEPT DEPT ACTAT CNTRACPT USE 150 MG CYTP 60278 PATHOLOGY PICKLESIM CERV/VAG 2 & ER JR ORESTES AUTO THIN CYTOLOGY LAYER LAB PREP MNL SCREEN IIV3 35567 HERNANDO VILLAGOMEZ VACCINE 2 GIN GIN SPLIT VIRUS 0.[address] [place] [address] [place] NOLAN HEAD/BRAI 1 MEDICAL TYRELL N W/O SERV CONTRAST FOUNDATIO MATERIAL RADEX 34428 [place] ZIA SHOULDER 1 MEDICAL COMPLETE SERV MINIMUM 2 FOUNDATIO VIEWS RADEX 05097 [place] BARBARA JUAN SHOULDER 1 MEDICAL COMPLETE SERV MINIMUM 2 FOUNDATIO VIEWS RADEX 00634 [place] BARBARA JUAN SHOULDER 1 MEDICAL COMPLETE SERV MINIMUM 2 FOUNDATIO VIEWS AMB A0427 [facility] SERVICE 1 CO CO ALS AMBULANCE AMBULANCE EMERGENCY SERVICE SERVICE TRANSPORT LEVEL 1 RADIOLOGI 65885 AYOOB AND AYOOB AND C 1 EXAMINATI ON CHEST SINGLE VIEW FRONTAL RADEX 14578 [place] JUAN WRIST 1 MEDICAL COMPLETE SERV MINIMUM 3 FOUNDATIO VIEWS GROUND A0425 [facility] MILEA 1 CO CO PER AMBULANCE AMBULANCE STATUTE SERVICE SERVICE MILE RADEX 80308 DEE DEE GRE DEE DEE GRE SHOULDER 1 1 VIEW SEWHO L3960 ADVANCED ADVANCED ABDUCT 1 TECHNOLOG TECHNOLOG PSTN IES INC IES INC AIRPLANE DESN PREFAB W/FIT&ADJ CLTX 41403 DEE DEE GRE DEE DEE GRE PROXIMAL 1 HUMERAL FRACTURE W/O MANIPULAT ION ORTHOTIC 62053 DEE DEE GRE DEE DEE GRE MGMT&ALLISON 1 NJ UXTR LXTR&/TRN K EA 15 RADEX 37041 FARAGASSO FARAGASSO SHOULDER 1 DEV DEV 1 VIEW RADEX 71818 CNTRL [place] VILLEGAS SHOULDER 1 RADIOLOGY DEION COMPLETE MINIMUM 2 VIEWS INJ J1055 [facility] MDRXYPRGE 1 PR Aisle50 [facility]ALTH STRON DEPT DEPT ACTAT CNTRACPT USE 150 MG LIPID 57106 SPECTRUM SPECTRUM PANEL 1 LABORATOR LABORATOR Y NETWORK Y NETWORK DRUG 52889 SPECTRUM SPECTRUM ASSAY 1 LABORATOR LABORATOR VALPROIC Y NETWORK Y NETWORK DIPROPYLA CETIC ACID TOTAL BLOOD 42607 SPECTRUM SPECTRUM COUNT 1 LABORATOR LABORATOR COMPLETE Y NETWORK Y NETWORK AUTOMATED 25 07585 SPECTRUM SPECTRUM HYDROXY 1 LABORATOR LABORATOR INCLUDES Y NETWORK Y NETWORK FRACTIONS IF PERFORMED COMPREHEN 90815 SPECTRUM SPECTRUM SIVE 1 LABORATOR LABORATOR METABOLIC [place] [address] SPECTRUM SPECTRUM THYROID 1 LABORATOR LABORATOR STIMULATI Y NETWORK Y NETWORK NG HORMONE TSH INJ J1055 [facility] MDRXYPRGE 1 PR Aisle50 [facility] DEPT DEPT ACTAT CNTRACPT USE 150 MG INJ J1055 [facility] MDRXYPRGE 1 [facility] HEALTH STRON DEPT DEPT ACTAT CNTRACPT USE 150 MG HOSPITAL 24756 UNIVERSIT UNIVERSIT DISCHARGE 2 Y OF Y OF DAY [facility] MANAGEMEN PEDIA PEDIA T 30 MIN/< SBSQ HOSP 71488 [facility] 2 Y OF Y OF F/E/M NML [facility] NB TN D PEDIA PEDIA HX&XM NML 68492 [facility] NB INFT 2 Y OF Y OF INITIATIO [facility] N DX&TX PEDIA PEDIA Encounters Encounter Start End Date Code Location Performer Type Date EMERGENCY 85020 [facility] 7 [place] [facility] VIS[facility] S ASSIST MODERATE SEVERITY [facility] [place] [address] 7 HOSPITAL OUTPATIEN T EMERGENCY 56[facility] MONIKA DEPARTMEN EMERGENCY T VISIT SERV MODERATE SEVERITY [facility]OSP[facility] [place] [facility] [place] - 6 6 [facility]ALTH [facility] PERIODIC 56349 ROMY ALFRED PREVENTIV [address] MED EST [facility] PATIENT 40-64YRS OFFICE 07234 ROMY VILLARREAL OUTPATIEN 6 6 PRIMARY T VISIT [facility] 15 MINUTES HOSPITAL [facility] - 5 5 [place] OUTPATIEN HOSP T EMERGENCY 74573 [facility] 5 5 MONIKA BENITA [facility] EMERGENCY T VISIT SERV HIGH/URGE NT SEVERITY OFFICE 63006 ROMY VILLARREAL OUTPATIEN 5 5 PRIMARY T VISIT CARE, [facility] 15 MINUTES OFFICE 27826 [facility] [facility] 5 HEALTH MONA T VISIT MEDICAL 15 GROUP MINUTES OFFICE 29880 [facility] OUTPATIEN 5 5 PRIMARY LIS T VISIT CARE, [facility] 15 EMERGENCY 73257 RAINS ALL RAINS ALL DEPT 5 5 VISIT HIGH SEVERITY& THREAT [facility] UNIVERSIT - 5 5 Y [facility] T EMERGENCY 44271 UNIVERSIT 5 5 Y [facility] T VISIT HIGH/URGE NT SEVERITY EMERGENCY 41438 [facility] DEPT 5 5 BILLY BILLY VISIT HIGH SEVERITY& THREAT [facility] OFFICE 00199 TIMO TIMO OUTPATIEN 5 5 NANNETTE NANNETTE T NEW 20 MINUTES EMERGENCY 61278 [facility] ORR CHR DEPT 5 5 PRIMARY VISIT CARE HIGH PHYSICIAN SEVERITY& S THREAT [facility] OFFICE 34621 [place] PAIN FITZGERAL OUTPATIEN 5 5 CARE & D CHRISTIANO T VISIT [email or web address] 15 HIG MINUTES HOSPITAL C[facility]TRAL - 5 5 [place] OUTPATIEN HOSP T PERIODIC 06769 ROMY MARCELO THE PREVENTIV 5 5 PRIMARY E MED EST CARE, [facility] PATIENT 40-64YRS EMERGENCY 47297 VORKPOR VORKPOR 5 5 JERI WILCOX [facility] T VISIT HIGH/URGE NT SEVERITY [facility]OSPITAL [place] [facility] 93757 [place] 5 5 [facility] T VISIT MODERATE SEVERITY [facility] [place] - [facility] 63020 [place] TIEN [facility] 5 5 [facility] MEDICAL NEW/ESTAB GROUP PATIENT 40 MIN HOSPITAL CENTRAL - 4 4 [place] INPATIENT HOSP EMERGENCY 87304 VORKPOR VORKPOR DEPT [address] [facility] VISIT HIGH SEVERITY& THREAT FUNCJ OFFICE 95273 SHOSHANA HAM SHOSHANA HAM OUTPATIEN 4 4 T NEW 45 MINUTES OFFICE [address] [facility] [place] GRE OUTPATIEN 4 4 ORTHOPEDI T VISIT C 15 ASSOCIAT MINUTES OFFICE [address] [facility] [place]U GRE OUTPATIEN 3 3 ORTHOPEDI T VISIT C 15 ASSOCIAT MINUTES OFFICE 03675 ROMY NOBLE THE OUTPATIEN 3 3 PRIMARY T VISIT CARE, [facility] 15 MINUTES OFFICE 04481 ROMY MAYSBEE OUTPATIEN [address] T VISIT CARE, [facility] 15 MINUTES OFFICE [address] [facility]atie FUNEZ GRE OUTPATIEN 3 3 ORTHOPEDI T VISIT C 15 ASSOCIAT MINUTES OFFICE 58510 UNIVERSIT OUTPATIEN 3 3 Y T VISIT 5 HOSPITAL MINUTES OFFICE 78655 MARY JO NASH OUTPATIEN 3 3 MEDICAL SARWAT T VISIT SERV 15 FOUNDATIO MINUTES [facility] UNIVERS[facility] - 3 3 Y OUTPATIEN HOSPITAL T OFFICE 07173 MICHELLE ANTOINE CARIDAD OUTPATIEN 3 3 REGIONAL T NEW 30 FAMILY MINUTES [facility] MICHELLE - 3 3 REGIONAL OUTPATIEN MEDICAL T CENTE OFFICE 77912 ROMY VILLAGOMEZ OUTPATIEN 3 3 PRIMARY GIN T VISIT CARE, [facility] 15 MINUTES OFFICE 10550 TINO FUNEZ GRE OUTPATIEN 3 3 ORTHOPEDI T VISIT C 25 ASSOCIAT MINUTES EMERGENCY 42810 SAMIA MORALESLE 3 3 [facility] T VISIT HIGH/URGE NT [facility] [place] - [address] [facility] OUTPATIEN LONGBOAT KEY T OFFICE 55247 TINO MARRERO OUTPATIEN 3 3 ORTHOPEDI T VISIT C 15 ASSOCIAT MINUTES OFFICE 76057 TINO FUNEZ GRE OUTPATIEN 3 3 ORTHOPEDI T VISIT C 15 ASSOCIAT MINUTES PERIODIC 53765 ROMY HERNANDO PREVENTIV 3 3 PRIMARY GIN E MED EST CARE, [facility] PATIENT 40-64YRS OFFICE 47036 MARY JO HOPKINSOOR OUTPATIEN 3 3 MEDICAL SARWAT T VISIT SERV 25 FOUNDATIO MINUTES OFFICE 81231 ROMY DEREJE CR OUTPATIEN 2 2 PRIMARY T VISIT CARE, [facility] 15 MINUTES OFFICE 64447 TINO MARRERO OUTPATIEN 2 2 ORTHOPEDI T VISIT C 15 ASSOCIAT MINUTES OFFICE 21398 ROMY HERNANDO OUTPATIEN 2 2 PRIMARY GIN T VISIT CARE, [facility] 10 MINUTES OFFICE 17167 DEE DEE JANES DEE DEE GRE OUTPATIEN 2 2 T VISIT 15 MINUTES OFFICE 95506 ROMY HERNANDO OUTPATIEN 2 2 PRIMARY GIN T VISIT CARE, [facility] 15 MINUTES OFFICE 78577 DEE DEE GRE DEE DEE GRE OUTPATIEN 2 2 T VISIT 15 MINUTES OFFICE 62954 HERNANDO HERNANDO OUTPATIEN 2 2 GIN GIN T VISIT 10 MINUTES OFFICE 80015 DEE DEE GRE DEE DEE GRE OUTPATIEN 2 2 T VISIT 15 MINUTES OFFICE 34371 DEE DEE GRE DEE DEE GRE OUTPATIEN 2 2 T VISIT 15 MINUTES OFFICE 80138 DEE DEE GRE DEE DEE GRE OUTPATIEN 2 2 T VISIT 15 MINUTES OFFICE 44651 [facility] OUTPATIEN 2 2 CO HEALTH CO HEALTH T VISIT DEPT DEPT 25 MINUTES EMERGENCY 96631 SAMIALIZ CAMPOS 1 1 EMERGENCY [facility] DEPARTMEN SERVICES T VISIT MODERATE SEVERITY EMERGENCY 69501 MATTBRANDYCHIRSTIANO GUTIERREZCAITLYN 1 1 DEV DEV DEPARTMEN T VISIT HIGH/URGE NT SEVERITY [facility] LILLIE A - 1 1 JOHN PAUL DICKENS OUTPATIEN A T OFFICE 57943 [facility] OUTPATIEN 1 1 [facility] T VISIT DEPT DEPT 10 MINUTES OFFICE 56811 [facility] OUTPATIEN 1 1 [facility] T VISIT 5 DEPT DEPT MINUTES OFFICE 60177 [facility] OUTPATIEN 1 1 [facility] T VISIT DEPT DEPT 10 MINUTES
--- OUTSIDE RECORDS SUMMARY | 2016-11-21 15:07 | External Medical Summary Rpt ---
Author Author , Organization [employer] Address Unknown Phone Unavailable Care Team Providers Care Market Risk Specialist Name Role Phone DANICA LASHAE, DANICA Unavailable Unavailable LASHAE [employer] Unavailable Unavailable INC, [employer] [facility], Unavailable Unavailable [facility], [employer] [facility], [email or web address], Unavailable Unavailable [facility], [email or web address] [facility] Unavailable Unavailable LABORATORI, 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 Unavailable Unavailable LABORATORI, 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 AND, AYOOB AND Unavailable Unavailable [facility] Unavailable Unavailable [facility] Unavailable Unavailable MEDICAL GROUP, [facility] Unavailable Unavailable [facility] & Unavailable Unavailable CRITICAL, [facility] JOHNSON BENITA, JOHNSON Unavailable Unavailable BENITA [facility] Unavailable Unavailable PHARMACY, [facility] BRIDGES AIDE, BRIDGES Unavailable Unavailable AIDE RIZZO TEN, RIZZO TEN Unavailable Unavailable SALINAS CAR, SALINAS Unavailable Unavailable CAR [facility], Unavailable Unavailable [facility] Unavailable Unavailable INC, [facility] Unavailable Unavailable INC, [facility] Unavailable Unavailable [facility]OC[facility] Unavailable Unavailable PRACTI, [facility] PR[facility]I [facility] Unavailable Unavailable MEDICAL CENT, [facility], Unavailable Unavailable [...] SARWAT RODERICK III, RODERICK Unavailable Unavailable III [facility] Unavailable Unavailable ASSOCIAT, [facility] Unavailable Unavailable MEDICAL G, [facility] BARBARA JUAN, BARBARA JUAN Unavailable Unavailable KOSTELIC JACKI, Unavailable Unavailable KOSTELIC JACKI KOUNS CARIDAD, KOUNS CARIDAD Unavailable Unavailable [facility] # Unavailable Unavailable [id number], [facility] # [id number] [facility] Un[facility], [facility] Un[facility]available Unavailable [facility] TIEN DANILO, TIEN DANILO Unavailable Unavailable ALVIIA [facility] Unavailable Unavailable COGOVT, ALIVIA FAYETTE [facility] COG[facility] Unavailable Unavailable COGOVT, ALIVIA FAYETTE [facility] AND, AMARO AND Unavailable Unavailable [facility] Unavailable Unavailable SERVICE, [facility] Unavailable Unavailable SERVICE[facility] Unavailable Unavailable DEPT, [facility] DEPT [facility] Unavailable Unavailable DEPT, [facility] DEPT [facility], Unavailable Unavailable [facility], [facility], [facility] SHOSHANA HAM, SHOSHANA HAM Unavailable Unavailable [facility], [facility] Unavailable Unavailable [facility] Unavailable Unavailable SERVICES, [facility] DOZIER JUAN, DOZIER Unavailable Unavailable [...] LABORATORY Unavailable Unavailable NETWORK, [facility], Unavailable Unavailable [facility] STANDAFER, STANDAFER Unavailable Unavailable STUMBO, STUMBO Unavailable Unavailable VILLEGAS JOH, Unavailable Unavailable VILLEGASOVIDIO DEL VALLE, HARRISON Unavailable Unavailable ELIGIO TIKHFE MONA, Unavailable Unavailable TIMICHELAN MONA [facility] Unavailable Unavailable ASSIST, [facility] ASSIST [facility], Unavailable Unavailable [facility] Unavailable Unavailable [place] [facility], [facility] VORKPOR JERI, VORKPOR Unavailable Unavailable JERI VORKPOR JERI, VORKPOR Unavailable Unavailable JERI [facility] # Unavailable Unavailable [id number], [facility] # [id number] SUZANNE PALACIOS Unavailable Unavailable RANI IV ALL, Unavailable Unavailable RANI IV ALL WILP THE, WILP THE Unavailable Unavailable Purpose Continuity of Care Document - 02-20-2002 through 2016 Problems Code Diagnosis DOS Provider Status [id number] INTENTIONAL 10-01-2016 [facility] SELF-HARM PHYSICIANS UNS SHARP ASSIST OBJECT INIT ENC Z048 ENCOUNTER 10-01-2016 [facility] EXAM & PHYSICIANS OBSERVATION ASSIST OTHER SPEC REASONS [id number] UNSPECIFIED 08-22-2016 ALIVIA FAYETTE INJURY OF URBAN HEAD COGOVT INITIAL ENCOUNTER A14405 EPILEPSY 08-08-2016 [facility] INTRACT W/O STATUS EPILEPTICUS [id number] PAIN IN 08-08-2016 [facility] [place] LEFT HAND RADIOLOGY [id number] UNSPECIFIED 08-08-2016 [facility] INJURY LT [facility] WRIST HAND FINGERS INITIAL [id number] UNSPECIFIED 08-08-2016 [facility] INITIAL SERV ENCOUNTER U22552 OTHER LONG 08-08-2016 [facility] CURRENT DRUG THERAPY Z309 ENCOUNTER 06-15-2016 [facility] FOR PRIMARY CONTRACEPTI CARE, [facility] VE MANAGEMENT UNS [id number] PRIMARY 01-14-2016 [facility] OSTEO[facility] TIS RIGHT [place] SHOULDER [id number] PAIN IN 01-14-2016 [facility] RIGHT RADIOLOG[facility] SHOULDER ASSOC O94627 ENCOUNTER 12-08-2015 [place] 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 PRIMARY GENERAL RTN CARE, [facility] W/O ABNORMAL FIND Z302 ENCOUNTER 12-08-2015 [place] FOR PRIMARY STERILIZATI CARE, [facility] ON G48299 LOC-REL SX 09-28-2015 [facility] EPILEPSY HEALTH W/CPS NOT MEDICAL G INTRACT W/O SE R569 UNSPECIFIED 09-28-2015 [facility] CONVULSIONS MEDICAL G R05 COUGH 09-26-2015 [facility] [place] [facility] R0602 SHORTNESS 09-24-2015 [facility] [place] OF BREATH RADIOLOGY K8020 CALCULUS GB 09-23-2015 [facility] [place] W/O RADIOLOGY CHOLECYSTIT IS W/O OBSTRUCTION T74397 EPILEPSY 09-21-2015 [facility] UNS NANNETTE INTRACTABLE W/O STATUS EPILEPTICUS R9401 ABNORMAL 09-21-2015 [facility] ELECTROENCE NANNETTE PHALOGRAM EEG Z3002 COUNSELING 06-19-2015 [facility] PRIMARY NATURAL FAM CARE, [facility] PLAN AVOID PREG R4182 ALTERED 04-01-2015 ALIVIA FAYETTE MENTAL URBAN STATUS COGOVT UNSPECIFIED Z008 ENCOUNTER 04-01-2015 [facility] N EMERGENCY GENERAL SERV EXAMINATION C19605 PAIN IN 03-23-2015 [place] UNSPECIFIED PRIMARY SHOULDER CARE, [facility] M609 MYOSITIS 03-19-2015 [facility] [place] [id number] MYALGIA 03-19-2015 [facility] 22561 GENERALIZED 01-27-2015 [place] ANXIETY PRIMARY DISORDER CARE, [facility] 18048 UNSPEC 01-27-2015 [place] EPILEPSY PRIMARY WITHOUT CARE, [facility] MENTION INTRACT EPILEPSY 3899 UNSPECIFIED 01-23-2015 [facility] LOSS 7802 SYNCOPE AND 01-23-2015 [place] [facility] 27922 OTHER 01-23-2015 [facility] 7804 DIZZINESS 01-23-2015 [facility] GIDDINESS 25061 OTHER 01-18-2015 [place] [facility] CONDITIONS SERV OF BRAIN [facility]OUNDATION 4371 OTH 01-18-2015 [place] [facility] GENERALIZED SERV ISCHEMIC FOUNDATION CEREBROVASC ULAR DISEASE 45764 ALTERED 01-18-2015 ALIVIA FAYETTE MENTAL URBAN STATUS COGOVT 7840 HEADACHE 01-18-2015 ANDRIA BILLY 60261 LOC-REL 12-12-2014 [facility] EPILEPSY & NANNETTE ES W/SPS W/INTRACTAB LE EPIL V700 ROUTINE 12-12-2014 [facility] GENERAL NANNETTE MEDICAL EXAM@HEALTH CARE FACL 14803 PAIN IN 12-09-2014 [facility] [place] JOINT, RADIOLOGY SHOULDER REGION 7241 PAIN IN 12-09-2014 [facility] [place] THORACIC RADIOLOGY SPINE 96639 OBESITY, 12-01-2014 [place] PAIN UNSPECIFIED CARE & [facility] 7242 LUMBAGO 12-01-2014 [place] [facility] & [facility] V7109 OBSERVATION 12-01-2014 [place] PAIN OF OTHER CARE & SUSPECTED [facility] CONDITION 72587 NONSPECIFIC 11-20-2014 [facility] ABNORMAL [facility] PHALOGRAM 61211 IRRITABILIT 11-20-2014 [facility] Y [facility] V154 PERS HX 11-03-2014 DEPT FOR PSYCHOLOGIC PUBLIC HLTH AL TRAUMA PRS [facility] 2724 OTHER AND 09-26-2014 [place] UNSPECIFIED PRIMARY CARE, [facility] HYPERLIPIDE GEOVANNA V2504 CNSL&INSTRC 09-17-2014 [employer], [email or web address] NATURAL FAM PLANNG AVOID PREG V258 OTHER 09-16-2014 [place] SPECIFIED PRIMARY CONTRACEPTI CARE, [facility] VE MANAGEMENT 7295 PAIN IN 08-15-2014 [facility] [place] SOFT RADIOLOGY TISSUES OF LIMB 8290 CLOSED 08-15-2014 [facility] FRACTURE OF AMBULANCE SERVICE UNSPECIFIED BONE 34301 CONTUSION 08-15-2014 [facility] OF SHOULDER [facility]AST[facility] REGION MEDICAL 97198 CONTUSION 08-15-2014 TING W[facility]CO[facility] MULTIPLE SITES SHOULDER&UP PER ARM E9179 OTHER 08-15-2014 [facility] STRIKING AGAINST W/WO SUBSEQUENT FALL 5990 URINARY 02-17-2014 [place] TRACT PRIMARY INFECTION CARE, [facility] SITE NOT SPECIFIED 7881 DYSURIA 02-17-2014 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 21627 URINARY 02-17-2014 [facility] FREQUENCY 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I 81798 02-17-2014 [facility] [place] [place] 82858 GEN CONVUL 02-09-2014 [facility] PULMONARY & W/O MENTION CRITICAL INTRACT EPILEPSY 2762 ACIDOSIS 02-08-2014 [facility] 89200 DEHYDRATION 02-08-2014 [facility] V1581 PERS HX 02-08-2014 [facility] NONCOMPLIAN [facility] CE W/MED TX HOSP PRS HAZARDS HLTH 7197 DIFFICULTY 10-06-2013 HOME IN WALKING CONVALESCEN T AIDS INC 8249 UNSPECIFIED 10-06-2013 HOME OPEN CONVALESCEN FRACTURE OF T AIDS INC ANKLE V7241 08-27-2013 [place] EXAMINATION LABS, [facility] OR TEST NEGATIVE RESULT 28381 PAIN IN 08-12-2013 SH[facility] SIMMS JOINT, ANKLE AND FOOT 22471 PAIN IN 06-04-2013 [place] JOINT, ORTHOPEDIC LOWER LEG ASSOCIAT 8441 SPRAIN AND 06-04-2013 [place] STRAIN OF ORTHOPEDIC MCL OF KNEE ASSOCIAT 74817 CONTUSION 05-31-2013 [place] OF THIGH PRIMARY CARE, [facility] V2509 OTH GENERAL 05-31-2013 [place] PRIMARY CNSL&ADVICE CARE, [facility] CONTRACEPT MANAGEMENT 28930 RESTLESS 05-17-2013 [place] LEGS PRIMARY SYNDROME CARE, [facility] 3569 UNSPEC 05-17-2013 [place] HEREDIT&IDI PRIMARY OPATHIC CARE, [facility] PERIPHERAL NEUROPATHY 5589 OTH&UNSPEC 05-17-2013 [place] NONINFECTIO PRIMARY US CARE, [facility] GASTROENTER ITIS&COLITI S 8960 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 PROSTH INC W/O MENTION COMP 8244 CLOSED 03-12-2013 [place] BIMALLEOLAR ORTHOPEDIC FRACTURE ASSOCIAT 37016 DYSARTHRIA 02-08-2013 [facility] V5869 LONG-TERM 02-08-2013 [facility] USE OF OTHER MEDICATIONS 82282 OTHER 11-06-2012 [facility] [place] NONSPECIFIC RADIOLOGY ABNORMAL FINDING OF LUNG FIELD 37296 HYPOXEMIA 11-06-2012 [facility] FAMILY PRACTI 34643 HYPERTENSIO 11-06-2012 [facility] REGIONAL FAMILY PRACTI E8889 UNSPECIFIED 11-06-2012 [facility] [place] [facility] FAMILY PRACTI 3384 CHRONIC 11-05-2012 [facility] SYNDROME [facility]ICAL [facility]ENT[facility] 8248 UNSPECIFIED 11-02-2012 [place] CLOSED PRIMARY FRACTURE OF CARE, [facility] ANKLE 8246 CLOSED 10-29-2012 [facility] EMERGENCY R FRACTURE SERVICES E8859 FALL FROM 10-29-2012 [facility] OTHER EMERGENCY SLIPPING SERVICES TRIPPING OR STUMBLING V4973 LOWER LIMB 10-29-2012 [facility] AMPUTATION, EMERGENCY FOOT SERVICES 04177 CLOSED 10-17-2012 [facility] FRACTURE OF ORTHOPEDIC SHAFT OF ASSOCIAT FIBULA 7812 ABNORMALITY 07-12-2012 [place] OF GAIT ORTHOPEDIC ASSOCIAT 1121 CANDIDIASIS 07-10-2012 [place] OF VULVA PRIMARY AND VAGINA CARE, [facility] 6235 LEUKORRHEA 07-10-2012 [facility] NOT ESOTERIC SPECIFIED LABORATORI INFECTIVE V7231 ROUTINE 07-10-2012 [place] GYNECOLOGIC PRIMARY AL CARE, [facility] EXAMINATION V762 SCREENING 07-10-2012 [place] FOR PRIMARY MALIGNANT CARE, [facility] NEOPLASM OF THE CERVIX 6260 ABSENCE OF 06-11-2012 [place] MENSTRUATIO LABS, [email or web address] N 73180 SEC 04-12-2012 [place] LOCALIZED ORTHOPEDIC OSTEOARTHRO ASSOCIAT SIS SHOULDER REGION 43427 COMPLETE 04-12-2012 [place] RUPTURE OF ORTHOPEDIC ROTATOR ASSOCIAT CUFF V0481 NEED 04-09-2012 [place] PROPHYLACTI PRIMARY C CARE, [facility] VACCINATION &INOCULATIO N FLU 7260 ADHESIVE 01-19-2012 DEE DEE GRE CAPSULITIS OF SHOULDER 06524 EFFUSION OF 01-12-2012 [facility] SHOULDER OPEN MRI JOINT 14553 UNSPEC 01-12-2012 [facility] DISORDERS OPEN MRI BURSAE&TEND ONS SHOULDER REGION 8406 SUPRASPINAT 01-12-2012 [facility] US SPRAIN OPEN MRI AND STRAIN 87513 COMA 12-22-2011 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 10545 SCOLIOSIS , 10-03-2011 [facility] IDIOPATHIC OPEN MRI 8970 TRAUMAT AMP 09-13-2011 RESP A CARE LEG UNILAT INC BELW KNEE W/O COMP 21249 CLOSED 09-01-2011 DEE DEE GRE FRACTURE OF UNSPECIFIED PART OF HUMERUS 2662 OTHER 06-23-2011 [facility] B-COMPLEX HEALTH DEPT DEFICIENCIE S V2549 SURVEILLANC 06-23-2011 [facility] E OTH PREV HEALTH DEPT PRSC CONTRACEPT METHOD V8533 BODY MASS 06-23-2011 [facility] INDEX HEALTH DEPT 33.0-33.9 ADULT 9592 INJURY 05-29-2011 [place] [facility] OTHER&UNSPE SERV CIFIED FOUNDATIO SHOULDER&UP PER ARM V5411 AFTERCARE 05-29-2011 [place] [facility] HEALING SERV TRAUMATIC [facility] FRACTURE UPPER ARM 71608 PAIN IN 05-25-2011 [facility] JOINT, AMBULANCE UPPER ARM SERVICE 7869 OTH 05-25-2011 [place] [facility] SYMPTOMS SERV INVOLVING F[facility] RESPIRATORY SYSTEM&CHES T 19089 CLOSED 05-25-2011 [place] [facility] FRACTURE OF SERV SURGICAL [facility]OUNDAT[facility] NECK OF HUMERUS 51661 OTHER WRIST 05-25-2011 [place] [facility] SPRAIN AND SERV STRAIN [facility] 95672 CLOSED 04-16-2011 [facility] A FRACTURE [facility] UNSPEC PART UPPER END HUMERUS 05041 OTHER 01-07-2011 [facility] FATIGUE NETWORK V3000 SINGLE 02-22-2002 [facility] PEDIA W/O Medications Na ND Rx [...] CY TA L- BL 76 ET 8 WI 65 05 05 30 30 00 KR [...] MG L- TA 76 BL 8 ET WI 65 04 04 30 30 00 KR [...] MG L- TA 76 BL 8 ET WI 65 03 03 30 30 00 KR Ac IM 16 -0 -3 .0 00 OG ti ID 20 5- 1- 00 06 ER ve ON 54 20 20 13 E 41 17 17 24 PH 50 0 43 AR MA MG CY TA L- BL 76 ET 8 NA 00 03 03 28 14 00 KR Ac WI 09 -0 -3 .0 00 OG ti [...] CY TA L- BL 76 ET 8 WI 65 02 03 30 30 00 KR [...] MG L- TA 76 BL 8 ET WI 65 01 02 30 30 00 KR [...] 08 S GE [address] WY ER LY ON E PH 15 AR [...] CY TA L- BL 76 ET 8 WI 65 12 01 30 30 00 KR [...] S TE GE [address] WY I ER LY ON E PH 15 [...] 0 14 7 KR 60 OV Ac WI 11 -1 -1 0. OG 96 ER [...] URBAN URBAN STATUTE COGOVT COGOVT MILE RADEX 92261 [facility] [place] RODERICK HAND 7 RADIOLOGY III MINIMUM 3 VIEWS DRUG 72491 [facility] ASSAY 7 HEALTH HEALTH VALPROIC [facility] DIPROPYLA CETIC ACID TOTAL DRUG 24250 [facility] SCREEN 7 HEALTH HEALTH QUANTITAT [facility] HELGA LAMOTRIGI NE COLLECTIO 19020 [facility] N VENOUS 7 HEALTH HEALTH BLOOD [facility] VENIPUNCT URE COMPREHEN 31185 [facility] SIVE 7 HEALTH HEALTH METABOLIC [facility] PANEL THERAPEUT 70691 [facility] 7 [facility]AC [facility] TIC/DX INJECTION SUBQ/IM INJECTION J1050 [facility] 7 PRIMARY MEDROXYPR CARE, LLC OGESTERON E ACETATE 1 MG RADEX 49069 [facility] N. SHOULDER 6 RADIOLOGY COMPLETE ASSOC MINIMUM 2 VIEWS THERAPEUT 53933 [facility] [address] PROPHYLAC CARE, LLC TIC/DX INJECTION SUBQ/IM INJECTION J1050 [facility] 6 PRIMARY [address] MEDROXYPR CARE, LLC OGESTERON E ACETATE 1 MG SBSQ 26440 [facility] 6 ME HEALTH CARE/DAY MEDICAL 25 G MINUTES RADIOLOGI 14359 [facility] [place] WESTERFIE C 6 RADIOLOGY LD IV ALL EXAMINATI ON CHEST SINGLE VIEW FRONTAL RADIOLOGI 14387 [facility] [place] KOSTELIC C 6 RADIOLOGY JACKI EXAMINAT[place] [address] [facility] [place] DANICA ABDOMEN & 6 RADIOLOGY LASHAE PELVIS W/O CONTRAST MATERIAL LOCALIZE 78570 [facility] TIMO CEREBRAL 6 NANNETTE NANNETTE SEIZURE CABLE/RAD IO EEG/[place] [address] [facility] [place] DANICA HEAD/BRAI 6 RADIOLOGY LASHAE N W/O CONTRAST MATERIAL AMB A0427 ALIVIA ALIVIA SERVICE 6 FAYETTE FAYETTE ALS URBAN URBAN EMERGENCY COGOVT COGOVT TRANSPORT LEVEL 1 RADIOLOGI 39348 [facility] [place] FRANK C 6 RADIOLOGY QUINTEN EXAMINATI ON CHEST SINGLE VIEW FRONTAL INITIAL 83389 [facility] INPATIENT 6 ME HEALTH CONSULT MEDICAL NEW/ESTAB G PT 110 MIN GROUND A0425 AILVIA ALIVIA MILEAGE 6 FAYETTE FAYETTE PER URBAN URBAN STATUTE COGOVT COGOVT MILE THERAPEUT 55928 [facility] ALFRED IC 6 PRIMARY TER [facility]HYLAC [facility] TIC/DX INJECTION SUBQ/IM THERAPEUT 94915 [facility] VILLARREAL IC 6 [facility] TIC/DX INJECTION SUBQ/IM INJECTION J1050 [facility] RIZZO TEN 6 [facility]IMARY MEDROXYPR [facility] OGESTERON E ACETATE 1 MG DRUG 90871 [facility] ASSAY 5 [facility] HOSP DIPROPYLA CETIC ACID TOTAL BLOOD 99252 [facility] COUNT 5 [facility] COMPLETE [facility] HOSP AUTO&AUTO DIFRNTL WBC COMPREHEN 83007 [facility] SIVE 5 [facility] METABOLIC [facility] HOSP PANEL COLLECTIO 20543 [facility] N VENOUS 5 [facility] BLOOD [facility]OSP HOSP VENIPUNCT URE GROUND A0425 ALIVIA ALIVIA MILEAGE 5 FAYETTE FAYETTE PER URBAN URBAN STATUTE COGOVT COGOVT MILE AMB A0427 ALIVIA ALIVIA SERVICE 5 FAYETTE FAYETTE ALS URBAN URBAN EMERGENCY COGOVT COGOVT TRANSPORT LEVEL 1 INJECTION J1050 [facility] RIZZO TEN 5 PRIMARY MEDROXYPR CARE[facility] OGESTERON E ACETATE 1 MG THERAPEUT 94789 ROM[facility] RIZZO TEN IC 5 [facility] TIC/DX INJECTION SUBQ/IM ECG 50002 [place] TEJEDA ROUTINE 5 MEDICAL NAN ECG [...] EMERGENCY [place] [address] [place] HEAD/BRAI 5 MEDICAL EDW N W/O SERV CONTRAST FOUNDATIO MATERIAL N GROUND A0425 ALIVIA ALIVIA MILEAGE 5 FAYETTE FAYETTE PER URBAN URBAN STATUTE COGOVT COGOVT MILE SBSQ 10383 [facility] 5 NE [facility] CARE/DAY MEDICAL 35 G MINUTES INITIAL 12554 [facility] INPATIENT 5 [facility] MED[facility] NEW/ESTAB G PT 55 MIN RADEX 64907 [facility] [place] SALINAS SCAPULA 5 RADIOLOGY CAR COMPLETE RADEX 17775 [facility] [place] WESTERFIE SHOULDER 5 RADIOLOGY LD IV ALL COMPLETE MINIMUM 2 VIEWS RADEX 34133 [facility] [place] SALINAS SPINE 5 RADIOLOGY [place] [place] [address] [facility] [place] HEAD/BRAI 5 RADIOLOGY LD IV ALL N W/O CONTRAST MATERIAL ELECTROEN 62546 [facility] TIKHTMAN CEPHALOGR 5 HEALTH MONA AM W/REC MEDICAL AWAKE&ASL GROUP EEP URINE 11234 [facility] 5 LABS, LLC LABS, LLC TEST VISUAL COLOR CMPRSN METHS INJECTION J1050 [facility] MERLIN MAR 5 [facility] MED[facility] OGESTERON E ACETATE 1 MG THERAPEUT 70871 [place] MERLIN MAR IC 5 [facility] TIC/DX INJECTION SUBQ/IM RADEX 24261 [facility] HUMERUS 5 [facility] 2 [facility] VIEWS SHOULDER L3660 G[facility] GOULDS ORTHOSIS 5 DISCOUNT DISCOUNT FIG 8 MEDICAL MEDICAL CANVAS WEBBING PREFAB AMBULANCE A0429 [facility] SERVICE 5 CO CO BLS AMBULANCE AMBULANCE EMERGENCY SERVICE SERVICE TRANSPORT GROUND A0425 [facility] MILEAGE 5 CO CO PER AMBULANCE AMBULANCE STATUTE SERVICE SERVICE MILE RADEX 02759 [facility] SHOULDER 5 [facility]ALTH [facility] COMPLETE [facility] MINIMUM 2 VIEWS BILIRUBIN 70548 [facility] DIRECT 5 [facility] COLLECTIO 52236 [facility] N VENOUS 5 [facility] BLOOD [facility] VENIPUNCT URE COMPREHEN 97940 [facility] SIVE 5 [facility] METABOLIC [facility] PANEL THERAPEUT 57143 [place] OVERBEE IC [address] PROPHYLAC CARE, [facility] TIC/DX INJECTION SUBQ/IM URNLS DIP 77305 [facility] 4 LABS, [email or web address] LABS, LLC STICK/TAB LET REAGENT AUTO MICROSCOP Y INJECTION J0696 [place] [address] PRIMARY PRIMARY CEFTRIAXO CARE, LLC CARE, LLC NE SODIUM PER 250 MG CULTURE 27126 [facility] BACTERIAL 4 ESOTERIC 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 LABORATOR QUANTTATI I I VE COLONY COUNT URINE URINE 35069 [facility] 4 LABS, LLC LABS, LLC TEST VISUAL COLOR CMPRSN METHS NONEMERGE A0100 [facility] 4 TRANSPORT TRANSPORT ATION; ATION SER [facility] 33937 HOSPITAL AMARO AND DISCHARGE 4 MEDICINE DAY SERVICES, MANAGEMEN T > 30 MIN SBSQ 50420 [place] [address] NEUROLOGY RYA CARE/DAY SERVICES 25 MINUTES INITIAL 61612 [place] [address] MEDICINE CARE/DAY SERVICES, 70 MINUTES SBSQ 95597 [place] [address] NEUROLOGY RYA CARE/DAY SERVICES 25 MINUTES INITIAL 53286 [facility] 4 NEUROLOGY TIM CARE/DAY CENTER 70 ALIVIA MINUTES SBSQ 49410 [facility] 4 PULMONARY JUAN CARE/DAY & 35 CRITICAL MINUTES AMB A0422 [facility] OXYGEN&O2 4 CO CO SUPPLIES AMBULANCE AMBULANCE LIFE SERVICE SERVICE SUSTAININ G SITUATION AMB A0427 [facility] SERVICE 4 CO CO ALS AMBULANCE AMBULANCE EMERGENCY SERVICE [place] [address] [facility] [place] FRANK HEAD/BRAI 4 RADIOLOGY QUINTEN N W/O CONTRAST MATERIAL RADIOLOGI 98845 VORKPOR VORKPOR C 4 JERI JERI EXAMINATI ON CHEST SINGLE VIEW FRONTAL GROUND A0425 [facility] MILEAGE 4 CO CO PER AMBULANCE AMBULANCE STATUTE SERVICE SERVICE MILE ECG 28671 VORKPOR VORKPOR ROUTINE 4 JERI JERI ECG W/LEAST 12 LDS I&R ONLY STANDARD K0001 HOME HOME WHEELCHAI 4 CONVALESC CONVALESC R ENT AIDS ENT AIDS INC INC STANDARD K0001 [facility] HOME WHEELCHAI 4 CONVALESC CONVALESC R ENT AIDS ENT AIDS INC INC THERAPEUT 48749 [facility] IC 4 PRIMARY PRIMARY PROPHYLAC CARE, [email or web address] CARE, [email or web address] TIC/DX INJECTION SUBQ/IM URINE 38678 [facility] 4 Schoology, [employer], [email or web address] TEST VISUAL COLOR CMPRSN METHS DRUG SCR [...] ENT AIDS ENT AIDS INC INC RADIOLOGI 87180 MANJUBRIDGETKatie DEE DEE MARRERO C 3 ORTHOPEDI EXAMINATI C ON KNEE ASSOCIAT 1/2 VIEWS URINE 56286 [facility] 3 LABS, [employer], [email or web address] TEST VISUAL COLOR CMPRSN METHS THERAPEUT 97657 [facility] 3 PRIMARY PROPHYLAC CARE, [facility] TIC/DX INJECTION SUBQ/IM INJECTION J1050 [facility] THE 3 PRIMARY MEDROXYPR CARE, [facility] OGESTERON E ACETATE 1 MG FT INSRT L3010 [facility] REMV MOLD 3 BRACE BRACE PT MDL PROSTH PROSTH LNGTUD INC INC ARCH SUPP EA STANDARD K0001 [facility] E[facility] AIDS INC INC ORTHOPEDI L3230 [facility] CENTRAL C 3 BRACE BRACE FOOTWEAR PROSTH PROSTH CUSTOM INC INC SHOE DEPTH INLAY EACH STANDARD K0001 [facility] INC STANDARD K0001 [facility] HOME WHEELCHAI 3 [facility] R ENT AIDS ENT AIDS INC INC STANDARD K0001 HOME HOME WHEELCHAI 3 [facility] R ENT AIDS ENT AIDS INC INC DRUG 13879 UGANDAN UGANDAN ASSAY 3 ESOTERIC ESOTERIC VALPROIC LABORATOR LABORATOR DIPROPYLA I I CETIC ACID TOTAL RADEX 21196 [place] DEE DEE GRE ANKLE 3 ORTHOPEDI COMPLETE C MINIMUM 3 ASSOCIAT VIEWS STANDARD K0001 [facility] E[facility] AIDS INC INC RADEX 45074 [place] DEE DEE GRE ANKLE 3 ORTHOPEDI COMPLETE C MINIMUM 3 ASSOCIAT VIEWS URINE 48123 [facility] 3 LABS, [email or web address] LABS, [email or web address] TEST VISUAL COLOR CMPRSN METHS DRUG 85767 UGANDAN UGANDAN ASSAY 3 ESOTERIC ESOTERIC VALPROIC LABORATOR LABORATOR DIPROPYLA I I CETIC ACID TOTAL STANDARD K0001 [facility]AI [facility] E[facility] AIDS ENT AIDS INC INC RADEX 69268 [place] DEE DEE GRE ANKLE 3 ORTHOPEDI COMPLETE C MINIMUM 3 ASSOCIAT VIEWS APPLICATI 16870 [place] DEE DEE GRE ON SHORT 3 ORTHOPEDI LEG CAST C BELOW ASSOCIAT KNEE-TOE STANDARD K0001 HOME HOME WHEELCHAI 3 CONVALESC CONVALESC R ENT AIDS ENT AIDS INC INC COMMODE E0163 HOME HOME CHAIR 3 CONVALES CONVALESC MOBILE OR ENT AIDS ENT AIDS INC INC STATIONAR Y W/FIXED ARMS RADIOLOGI 08694 MICHELLE MARTINEZ C 3 REGIONAL REGIONAL EXAMINATI MEDICAL MEDICAL ON CHEST CENTE CENTE SINGLE VIEW FRONTAL GROUND A0425 [facility] MILEAGE 3 CO CO PER AMBULANCE AMBULANCE STATUTE SERVICE SERVICE MILE NONINVASI 47231 MICHELLE MARTINEZ VE 3 REGIONAL REGIONAL EAR/PULSE [...] MEDICAL MEDICAL 0.1 MG CENTE CENTE FLUOROSCO 12275 MICHELLE MARTINEZ PY SPX >1 3 REGIONAL [...] CENTE SODIUM PHOSPHATE 1 MG ANES OPEN 77514 SHAWN TERRY PROC 3 LTH ELIGIO BONES ANESTHESI LOWER A PSC LEG/ANKLE /FOOT NOS BASIC 25823 MICHELLE MARTINEZ METABOLIC 3 REGIONAL REGIONAL PANEL MEDICAL MEDICAL CALCIUM CENTE CENTE TOTAL GONADOTRO 23894 MICHELLE MARTINEZ PIN 3 REGIONAL REGIONAL CHORIONIC MEDICAL MEDICAL CENTE CENTE QUALITATI VE BLOOD 05526 MICHELLE MARTINEZ COUNT 3 REGIONAL REGIONAL COMPLETE MEDICAL MEDICAL AUTOMATED CENTE CENTE OPEN 76935 MICHELLE MARTINEZ TREATMENT 3 REGIONAL REGIONAL MEDICAL MEDICAL BIMALLEOL CENTE CENTE AR ANKLE FRACTURE INJECTION J2001 MICHELLE MARTINEZ 3 REGIONAL REGIONAL LIDOCAINE MEDICAL MEDICAL HCL CENTE CENTE INTRAVENO US INFUS 10 MG INJECTION J1170 MICHELLE MARTINEZ 3 REGIONAL REGIONAL HYDROMORP MEDICAL MEDICAL THAD UP CENTE CENTE TO 4 MG GROUND A0425 [facility] MILEAGE 3 CO CO PER AMBULANCE AMBULANCE STATUTE SERVICE SERVICE MILE AMB A0427 [facility] SERVICE 3 CO CO ALS AMBULANCE AMBULANCE EMERGENCY SERVICE SERVICE TRANSPORT LEVEL 1 THERAPEUT 33668 [facility] HOAHAOISM IC 3 [facility] PROPHYLAC [facility] TIC/DX INJECTION SUBQ/IM RADEX 61933 [facility] HOAHAOISM ANKLE 3 [facility] COMPLETE [facility] MINIMUM 3 VIEWS RADIOLOGI 33810 HO[facility]ISM HOAHAOISM C 3 [facility] EXAMINATI [facility] ON TIBIA & FIBULA 2 VIEWS CLTX 27781 SAMIA STARK TRIMALLEO 3 EMERGENCY PAMELA LAR ANKLE SERVICES FX W/O MANIPULAT ION RADIOLOGI 05147 TINO FLORENCEU GRE C 3 ORTHOPEDI EXAMINATI C ON KNEE ASSOCIAT 1/2 VIEWS URINE 08486 [facility] TEST VISUAL COLOR CMPRSN METHS RADIOLOGI 45408 TINO DEE DEE GRE C 3 ORTHOPEDI EXAMINATI C ON KNEE ASSOCIAT 1/2 VIEWS CLTX PROX 43378 TINO FLORENCEU GRE 3 ORTHOPEDI FIBULA/SH C FT FX W/O ASSOCIAT MANJ IADNA 90323 UGANDAN UGANDAN TRICHOMON 3 ESOTERIC 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 VAGINALIS I I DIRECT PROBE TQ CYTP C/V 48271 UGANDAN UGANDAN AUTO THIN 3 ESOTERIC ESOTERIC LYR LABORATOR LABORATOR PREPJ SCR I I MNL RESCR PHYS IADNA 11358 UGANDAN UGANDAN PAPILLOMA 3 ESOTERIC ESOTERIC VIRUS LABORATOR LABORATOR HUMAN I I AMPLIFIED PROBE TQ IADNA 80813 UGANDAN UGANDAN GARDNEREL 3 ESOTERIC ESOTERIC LA LABORATOR LABORATOR VAGINALIS I I DIRECT PROBE TQ IADNA 89613 UGANDAN UGANDAN TRENT 3 ESOTERIC ESOTERIC SPECIES LABORATOR LABORATOR DIRECT I I PROBE TQ THERAPEUT 97853 ROMY VILLAGOMEZ IC 3 PRIMARY GIN PROPHYLAC CARE, [facility] TIC/DX INJECTION SUBQ/IM URINE 16947 [facility] 3 LABS, [employer], [email or web address] TEST VISUAL COLOR CMPRSN METHS ARTHROCEN 27474 TINO DEE DEE GRE TESIS 2 ORTHOPEDI ASPIR&/IN C J MAJOR ASSOCIAT JT/BURSA W/O US INJECTION J1050 HERNANDO VILLAGOMEZ 2 GIN GIN MEDROXYPR OGESTERON E ACETATE 1 MG MRI ANY 63515 JOIE RASHEED JT UPPER 2 OPEN MRI DELORIS EXTREMITY W/O CONTRAST MATRL RADEX 28526 [place] LARSEN SHOULDER 2 OPEN MRI AIDE COMPLETE MINIMUM 2 VIEWS URINE 04486 [facility] 2 Schoology, [employer], [email or web address] TEST VISUAL COLOR CMPRSN METHS DRUG 60721 UGANDAN UGANDAN ASSAY 2 ESOTERIC ESOTERIC VALPROIC LABORATOR LABORATOR DIPROPYLA I I CETIC ACID TOTAL BLOOD 82249 UGANDAN UGANDAN COUNT 2 ESOTERIC ESOTERIC COMPLETE LABORATOR LABORATOR AUTO&AUTO I I DIFRNTL WBC COMPREHEN 85929 UGANDAN UGANDAN SIVE 2 ESOTERIC ESOTERIC METABOLIC LABORATOR LABORATOR PANEL I I RADEX 39118 JOIE LARSEN SPINE 2 OPEN MRI AIDE LUMBOSACR AL MINIMUM 4 VIEWS RADEX 05136 JOIE RASHEED SPINE 2 OPEN MRI DELORIS THORACIC 2 VIEWS COMMODE E0163 RESP A RESP A CHAIR [address] [place] [address] INC MOBILE OR STATIONAR Y W/FIXED ARMS URINE 86260 [facility] 2 LABS, [employer], [email or web address] TEST VISUAL COLOR CMPRSN METHS ARTHROCEN 45167 DEE DEE GRE DEE DEE GRE TESIS 2 ASPIR&/IN J MAJOR JT/BURSA W/O US INJECTION J3302 DEE DEE GRE DEE DEE GRE 2 TRIAMCINO LONE DIACETATE PER 5 MG RADEX 19835 DEE DEE GRE DEE DEE GRE SHOULDER 2 1 VIEW INJ J1055 [facility] MDRXYPRGE 2 [facility] DEPT DEPT ACTAT CNTRACPT USE 150 MG CYTP 48426 PATHOLOGY PICKLESIM CERV/VAG 2 & ER JR ORESTES AUTO THIN CYTOLOGY LAYER LAB PREP MNL SCREEN IIV3 78328 HERNANDO VILLAGOMEZ VACCINE 2 GIN GIN SPLIT VIRUS 0.[address] [place] [address] [place] NOLAN HEAD/BRAI 1 MEDICAL TYRELL N W/O SERV CONTRAST FOUNDATIO MATERIAL RADEX 09518 [place] [facility] ZIA SHOULDER 1 MEDICAL COMPLETE SERV MINIMUM 2 FOUNDATIO VIEWS RADEX 97407 [place] BARBARA JUAN SHOULDER 1 MEDICAL COMPLETE SERV MINIMUM 2 FOUNDATIO VIEWS RADEX 65590 [place] BAR[place] JUAN SHOULDER 1 MEDICAL COMPLETE SERV MINIMUM 2 FOUNDATIO VIEWS AMB A0427 [facility] SERVICE 1 CO CO ALS AMBULANCE AMBULANCE EMERGENCY SERVICE SERVICE TRANSPORT LEVEL 1 RADIOLOGI 98758 AYOOB AND AYOOB AND C 1 EXAMINATI ON CHEST SINGLE VIEW FRONTAL RADEX 31029 [place] JUAN WRIST 1 MEDICAL COMPLETE SERV MINIMUM 3 FOUNDATIO VIEWS GROUND A0425 [facility] MILEA 1 CO CO PER AMBULANCE AMBULANCE STATUTE SERVICE SERVICE MILE RADEX 39590 DEE DEE GRE DEE DEE GRE SHOULDER 1 1 VIEW SEWHO L3960 ADVANCED ADVANCED ABDUCT 1 TECHNOLOG TECHNOLOG PSTN IES INC IES INC AIRPLANE DESN PREFAB W/FIT&ADJ CLTX 52460 DEE DEE GRE DEE DEE GRE PROXIMAL 1 HUMERAL FRACTURE W/O MANIPULAT ION ORTHOTIC 16762 DEE DEE GRE DEE DEE GRE MGMT&ALLISON 1 [place] UXTR LXTR&/TRN K EA 15 RADEX 05008 FARAGASSO FARAGASSO SHOULDER 1 DEV DEV 1 VIEW RADEX 91629 CNTRL [place] V[place] SHOULDER 1 RADIOLOGY DEION COMPLETE MINIMUM 2 VIEWS INJ J1055 [facility] MDRXYPRGE 1 [place] [facility] DEPT DEPT ACTAT CNTRACPT USE 150 MG LIPID 66886 SPECTRUM SPECTRUM PANEL 1 LABORATOR LABORATOR Y NETWORK Y NETWORK DRUG 99009 SPECTRUM SPECTRUM ASSAY 1 LABORATOR LABORATOR VALPROIC Y NETWORK Y NETWORK DIPROPYLA CETIC ACID TOTAL BLOOD 49221 SPECTRUM SPECTRUM COUNT 1 LABORATOR LABORATOR COMPLETE Y NETWORK Y NETWORK AUTOMATED 25 43764 SPECTRUM SPECTRUM HYDROXY 1 LABORATOR LABORATOR INCLUDES Y NETWORK Y NETWORK FRACTIONS IF PERFORMED COMPREHEN 32755 SPECTRUM SPECTRUM SIVE 1 LABORATOR LABORATOR METABOLIC [place] [address] SPECTRUM SPECTRUM THYROID 1 LABORATOR LABORATOR STIMULATI Y NETWORK Y NETWORK NG HORMONE TSH INJ J1055 [facility] MDRXYPRGE 1 [place] [employer] [facility]PT [facility]AT CNTRACPT USE 150 MG INJ J1055 [facility] MDRXYPRGE 1 [facility] DE[facility] DEPT ACTAT CNTRACPT USE 150 MG HOSPITAL 66608 [facility] UNIVERSIT DISCHARGE 2 Y OF Y OF DAY [facility] MANAGEMEN PEDIA PEDIA T 30 MIN/< SBSQ HOSP 23871 [facility] 2 Y OF Y OF F/E/M NML [facility] NB WI D PEDIA PEDIA HX&XM NML 89807 [facility] NB INFT 2 Y OF Y OF INITIATIO [facility] N DX&TX PEDIA PEDIA Encounters Encounter Start End Date Code Location Performer Type Date EMERGENCY 02685 [facility] 7 7 [place] [facility] T VISIT S ASSIST MODERATE SEVERITY [facility] [place] [address] 7 HOSPITAL OUTPATIEN T EMERGENCY 88595 [facility] [place] DEPARTMEN EMERGENCY T VISIT SERV MODERATE SEVERITY [facility] 19555 ROMY ALFRED PREVENTIV [address] [facility] PATIENT 40-64YRS OFFICE 53060 ROMY VILLARREAL OUTPATIEN 6 6 [facility]IMARY [facility] 15 MINUTES HOSPITAL [facility] - 5 5 HOAHAOISM OUTPATIEN HOSP T EMERGENCY 25671 [facility] 5 5 MONIKA [facility]ITA [facility] EMERGENCY T VISIT SERV HIGH/URGE NT SEVERITY OFFICE 99423 ROMY VILLARREAL OUTPATIEN 5 5 PRIMARY T VISIT CARE, [facility] 15 MINUTES OFFICE 78522 [facility] 5 HEALTH MONA T VISIT MEDICAL 15 GROUP MINUTES OFFICE 14954 [facility] OUTPATIEN 5 5 PRIMARY LIS T VISIT CARE, [facility] 15 EMERGENCY 05111 RAINS ALL RAINS ALL DEPT 5 5 VISIT HIGH SEVERITY& THREAT [facility] [place] UNIVERSIT - 5 5 Y [facility] T EMERGENCY 36810 UNIVERSIT 5 5 Y [facility] T VISIT HIGH/URGE NT SEVERITY EMERGENCY 56828 [facility] DEPT 5 5 BILLY BILLY VISIT HIGH SEVERITY& THREAT [facility] OFFICE 59149 TIMO TIMO OUTPATIEN 5 5 NANNETTE NANNETTE T NEW 20 MINUTES EMERGENCY 05543 [facility] OR[facility] CHR DEPT 5 5 PRIMARY VISIT CARE HIGH PHYSICIAN SEVERITY& S THREAT [facility] OFFICE 85644 [place] PAIN FITZGERAL OUTPATIEN 5 5 CARE & D CHRISTIANO T VISIT [facility] 15 HIG MINUTES HOSPITAL CENTRAL - 5 5 HOAHAOISM OUTPATIEN HOSP T PERIODIC 34739 ROMY MARCELO THE PREVENTIV 5 5 PRIMARY E MED EST CARE, [facility] PATIENT 40-64YRS EMERGENCY 42363 VORKPOR VORKPOR 5 5 JERI WILCOX [facility] T VISIT HIGH/URGE NT SEVERITY HOSPITAL [facility] - [facility] 57531 HOAHAOISM 5 5 [facility] T VISIT MODERATE SEVERITY HOSPITAL [facility]ISM - 5 5 [facility] 86124 HOAHAOISM TIEN [facility] 5 5 [facility] MEDICAL NEW/ESTAB GROUP PATIENT 40 MIN HOSPITAL CENTRAL - 4 4 HOAHAOISM INPATIENT HOSP EMERGENCY 64430 VORKPOR VORKPOR DEPT [address] [facility] VISIT HIGH SEVERITY& THREAT FUNCJ OFFICE 29448 SHOSHANA HAM SHOSHANA HAM OUTPATIEN 4 4 T NEW 45 MINUTES OFFICE 09232 [facility] GRE OUTPATIEN 4 4 ORTHOPEDI T VISIT C 15 ASSOCIAT MINUTES OFFICE 26614 [facility] GRE OUTPATIEN 3 3 ORTHOPEDI T VISIT C 15 ASSOCIAT MINUTES OFFICE 09055 ROMY NOBLE THE OUTPATIEN 3 3 PRIMARY T VISIT CARE, [facility] 15 MINUTES OFFICE 44961 ROMY MAYSBEE OUTPATIEN [address] T VISIT CARE, [facility] 15 MINUTES OFFICE 10282 [facility] FUNEZ GRE OUTPATIEN 3 3 ORTHOPEDI T VISIT C 15 ASSOCIAT MINUTES OFFICE 57866 UNIVERSIT OUTPATIEN 3 3 Y T VISIT 5 HOSPITAL MINUTES OFFICE 84250 MARY JO NASH OUTPATIEN 3 3 MEDICAL SARWAT T VISIT SERV 15 FOUNDATIO MINUTES [facility] UNIVERSIT - 3 3 Y OUTPATIEN HOSPITAL T OFFICE 01120 MICHELLE ANTOINE CARIDAD OUTPATIEN 3 3 REGIONAL T NEW 30 FAMILY MINUTES [facility] MICHELLE - 3 3 REGIONAL OUTPATIEN MEDICAL T CENTE OFFICE 58019 ROMY VILLAGOMEZ OUTPATIEN 3 3 PRIMARY GIN T VISIT CARE, [facility] 15 MINUTES OFFICE 82395 TINO FUNEZ GRE OUTPATIEN 3 3 ORTHOPEDI T VISIT C 25 ASSOCIAT MINUTES EMERGENCY 55751 SAMIA MORALESLE 3 3 EMERGENCY [facility] T VISIT HIGH/URGE NT [facility] HOAHAOISM - 3 3 [facility] [place] T OFFICE 01071 TINO MARRERO OUTPATIEN 3 3 ORTHOPEDI T VISIT C 15 ASSOCIAT MINUTES OFFICE 05752 TINO FUNEZ GRE OUTPATIEN 3 3 ORTHOPEDI T VISIT C 15 ASSOCIAT MINUTES PERIODIC 18251 ROMY HERNANDO PREVENTIV 3 3 PRIMARY GIN E MED EST CARE, [facility] PATIENT 40-64YRS OFFICE 55016 MARY JO HOPKINSOOR OUTPATIEN 3 3 MEDICAL SARWAT T VISIT SERV 25 FOUNDATIO MINUTES OFFICE 32123 ROMY DEREJE CR OUTPATIEN 2 2 PRIMARY T VISIT CARE, [facility] 15 MINUTES OFFICE 07153 TINO MARRERO OUTPATIEN 2 2 ORTHOPEDI T VISIT C 15 ASSOCIAT MINUTES OFFICE 96076 ROMY HERNANDO OUTPATIEN 2 2 PRIMARY GIN T VISIT CARE, [facility] 10 MINUTES OFFICE 01653 DEE DEE JANES DEE DEE GRE OUTPATIEN 2 2 T VISIT 15 MINUTES OFFICE 35624 ROMY HERNANDO OUTPATIEN 2 2 PRIMARY GIN T VISIT CARE, [facility] 15 MINUTES OFFICE 80391 DEE DEE GRE DEE DEE GRE OUTPATIEN 2 2 T VISIT 15 MINUTES OFFICE 80801 HERNANDO HERNANDO OUTPATIEN 2 2 GIN GIN T VISIT 10 MINUTES OFFICE 97473 DEE DEE GRE DEE DEE GRE OUTPATIEN 2 2 T VISIT 15 MINUTES OFFICE 65709 DEE DEE GRE DEE DEE GRE OUTPATIEN 2 2 T VISIT 15 MINUTES OFFICE 88471 DEE DEE GRE DEE DEE GRE OUTPATIEN 2 2 T VISIT 15 MINUTES OFFICE 16068 [facility] OUTPATIEN 2 2 [facility] T VISIT DEPT DEPT 25 MINUTES EMERGENCY 61350 SAMIALIZ CAMPOS 1 1 EMERGENCY [facility] DEPARTMEN SERVICES T VISIT MODERATE SEVERITY EMERGENCY 95310 MATTBRANDYCHRISTIANO GUTIERREZCAITLYN 1 1 DEV DEV DEPARTMEN T VISIT HIGH/URGE NT SEVERITY [facility] LILLIE A - 1 1 JOHN PAUL DICKENS OUTPATIEN A T OFFICE 56344 [facility] OUTPATIEN 1 1 [facility] T VISIT DEPT DEPT 10 MINUTES OFFICE 25377 [facility] OUTPATIEN 1 1 [facility] T VISIT 5 DEPT DEPT MINUTES OFFICE 97946 [facility] OUTPATIEN 1 1 [facility] T VISIT DEPT DEPT 10 MINUTES
--- OUTSIDE RECORDS SUMMARY | 2016-11-21 15:08 | External Medical Summary Rpt ---
Author Author , Organization [employer] Address Unknown Phone Unavailable Purpose Continuity of Care Document - 09-04-2000 through 2016 Immunization Name Date Route CVX Reacti Commen Provid Is Given on t er Refuse d Td Histor H176 No (adult 2001 ical ), Inform adsorb ation ed - Source Unspec ified
--- OUTSIDE RECORDS SUMMARY | 2016-11-21 15:09 | External Medical Summary Rpt ---
Author Author MASOOD Elder, [employer] Organization [employer] Address Unknown Phone Unavailable Results HEMOGLOBIN A1C Observa Value Referen Units Interpr Notes Date tion ce etation Range HEMOGLO 5.1 3 - 6 % Normal Expecte Sep 15 BIN A1C d 2014 HgbA1C 1:11 AM results :3% to 6% HgbA1C Normal Range *HgbA1C Estimat ed Average Glucose 5% 97 mg/dl6% 126 mg/dl7% 154 mg/dl8% 183 mg/dl9% 212 mg/dl>1 0% >240 mg/dl CBC (HEMOGRAM) Observa Value Referen Units Interpr Notes Date tion ce etation Range WBC 12.6 4.8 - THOUS High No Sep 14 10.8 informa 2014 tion in 2:05 PM source data RBC 4.98 4.20 - m/uL Normal No Sep 14 5.40 informa 2014 tion in 2:05 PM source data HGB 14.0 12.0 - g/dL Normal No Sep 14 16.0 informa 2014 tion in 2:05 PM source data HCT 41 37 - 47 % Normal No Sep 14 informa 2014 tion in 2:05 PM source data MEAN 82.5 81.0 - fL Normal No Sep 16 CORPUSC 99.0 informa 2014 ULAR tion in 2:05 PM VOLUME source data MEAN 28.1 27.0 - uug Normal No Sep 14 CORPUSC 31.0 informa 2014 ULAR tion in 2:05 PM HEMOGLO source BIN data MEAN 34.1 30.0 - g/dL Normal No Sep 16 CORPUSC 37.0 informa 2014 ULAR tion in 2:05 PM HGB source CONC data RED 13.9 11.5 - % Normal No Sep 14 CELL 14.5 informa 2015 DISTRIB tion in 2:05 PM UTION source WIDTH data PLATELE 266 130 - THOUS Normal No Sep 14 T COUNT 400 informa 2014 tion in 2:05 PM source data SHLDRR Observa Value Referen Units Interpr Notes Date tion ce etation Range TEXT ZOROASTRIANISM No No No No Aug 14 [facility] informa informa informa informa 2014 IS tion in tion in tion in tion in 11:38 [facility] source source source source AM D\.br\8 data data data data [facility]\ .br\[place] [address]\. br\393- 165-313 1\.br\\ .br\[facility] gn[facility] Report\ .br\031 4-0023\ .br\\.b r\Yumiko d\.br\\ .br\PAT IENT NAME: VIC BARAJAS 649\.br \: 971 [id number]\. br\ATTE NDING: DATE OF EXAM: 5\.br\P RIMARY CARE: UNKNOWN PHYSICI AN LOCATIO N:\.br\ \.br\OR DERING PHYSICI AN: EDDI DAVALOS MD\.b r\PROCE DURE(s) : SHOULDE R RIGHT\. br\ORDE R NUMBER( s): [id number] 80\.br\ \.br\CC :\.br\\ .br\\.b r\\.br\ \.br\EX AM: RIGHT SHOULDE R\.br\\ .br\HIS TORY: Pain after injury. \.br\\. br\FIND INGS: Three views of the right shoulde r reveal normal articul ation. There\. br\is no fractur e or other osseous abnorma lity.\. br\\.br \IMPRES JAIDEN: Unremar kable.\ .br\\.b r\\.br\ \.br\Re viewed and signed by: BEL WILLS M.D., 015 08:03:1 3\.br\T his documen t has been electro nically signed and is conside red final.\ .br\\.b r\\.br\ [id number] 670\.br \Job#:[id number] / [id number]\ .br\\.b r\DICTA BILLY BY: SIOBHAN WILLS MD\.br\ DICTATE D DATE/TI ME: 5 1138\.b r\TRANS CRIBED DATE/TI ME: 5 1254\.b r\\.br\ CC:\.br \ HUMRT Observa Value Referen Units Interpr Notes Date tion ce etation Range TEXT ZOROASTRIANISM No No No No Aug 14 [facility] informa informa informa informa 2014 IS tion in tion in tion in tion in 11:38 [facility] source source source source AM D\.br\8 data data data data \ .br\[place] [address]\. br\859- 623-313 1\.br\\ .br\[facility] gn[facility] Imaging Report\ .br\ 42\ .br\\.b r\Yumiko d\.br\\ .br\PAT IENT NAME: VIC BARAJAS 649\.br \: 971 [id number]\. br\ATTE NDING: DATE OF EXAM: 5\.br\P RIMARY CARE: UNKNOWN PHYSICI AN LOCATIO N:\.br\ \.br\OR DERING PHYSICI AN: EDDI DAVALOS MD\.b r\PROCE DURE(s) : HUMERUS RIGHT\. br\ORDE R NUMBER( s): [id number] 79\.br\ \.br\CC :\.br\\ .br\\.b r\\.br\ \.br\EX AM: RIGHT HUMERUS \.br\\. br\HIST ORY: Pain after trauma. \.br\\. br\COMP ARISON: None.\. br\\.br \FINDIN GS: Two views of the right humerus reveal no fractur e, disloca tion or\.br\ other abnorma lity of bone or joint. Soft tissues are unremar kable.\ .br\\.b r\IMPRE SSION: Unremar kable.\ .br\\.b r\\.br\ \.br\Re viewed and signed by: BEL WILLS M.D., 015 08:00:3 7\.br\T his documen t has been electro nically signed and is conside red final.\ .br\\.b r\\.br\ [id number] 670\.br \ \ .br\\.b r\DICTA BILLY BY: SIOBHAN WILLS MD\.br\ DICTATE D DATE/TI ME: 5 1138\.b r\TRANS CRIBED DATE/TI ME: 5 1253\.b r\\.br\ CC:\.br \ PCXR Observa Value Referen Units Interpr Notes Date tion ce etation Range TEXT ZOROASTRIANISM No No No No Sep 7 [facility] informa informa informa informa 2013 IS tion in tion in tion in tion in 1:28 PM [facility] source source source source D\.br\8 data data data data [facility] \ .[place] [address]\. br\623- 811-853 1\.br\\ .br\[facility] Report\ .br\090 7-0070\ .br\\.b r\Yumiko d\.br\\ .br\PAT IENT NAME: VIC BARAJAS 649\.br \: 971 [id number]\. br\ATTE NDING: DATE OF EXAM: 4\.br\P RIMARY CARE: UNKNOWN PHYSICI AN LOCATIO N:\.br\ \.br\OR DERING PHYSICI AN: FRANCISCO JAVIER REYNOLDS MD\.br\ PROCEDU RE(s): CHEST PORTABL E\.br\O RDER NUMBER( s): [id number] 22\.br\ \.br\CC :\.br\\ .br\\.b r\\.br\ \.br\EX AM: PORTABL E CHEST\. br\\.br \CLINIC AL INFO: Seizure .\.br\\ .br\NYA HNIQUE: AP view.\. br\\.br \FINDIN GS: The cardiom ediasti nal silhoue tte is within normal limits. The lungs\. br\are clear with no focal opaciti es or effusio ns. There are no acute osseous \.br\ab normali ties.\. br\\.br \IMPRES JAIDEN: No acute cardiop ulmonar y process .\.br\\ .br\\.b r\\.br\ Reviewe d and signed by: RODRICK WOMACK MD, 014 08:14:3 2\.br\T his documen t has been electro nically signed and is conside red final.\ .br\\.b r\\.br\ [id number] 397\.br \ \ .br\\.b r\DICTA BILLY BY: RODRICK WOMACK MD\.br\ DICTATE D DATE/TI ME: 4 1328\.b r\TRANS CRIBED DATE/TI ME: 4 1343\.b r\\.br\ CC:\.br \ HWOC Observa Value Referen Units Interpr Notes Date tion ce etation Range TEXT ZOROASTRIANISM No No No No Sep 6 [facility] informa informa informa informa 2013 IS tion in tion in tion in tion in 4:28 PM [facility] source source source source D\.br\8 data data data data [facility] \ .br\[place] [address]\. br\385- 623-313 1\.br\\ .br\[facility] Report\ .br\090 7-0023\ .br\\.b r\Yumiko d\.br\\ .br\PAT IENT NAME: VIC BARAJAS 649\.br \: 971 [id number]\. br\ATTE NDING: DATE OF EXAM: 4\.br\P RIMARY CARE: UNKNOWN PHYSICI AN LOCATIO N:\.br\ \.br\OR DERING PHYSICI AN: FRANCISCO JAVIER REYNOLDS MD\.br\ PROCEDU RE(s): HEAD WITHOUT CONTRAS T\.br\O RDER NUMBER( s): [id number] 24\.br\ \.br\CC :\.br\\ .br\\.b r\\.br\ \.br\FI NAL REPORT\ .br\NAM E: COURTNEY BARAJAS\.br\D OB: 971\.br \ID#: [id number] 649\.br \ORDER# : [id number] 24\.br\ ACCESSI ON#: [id number] 24\.br\ [address]\. br\PRIM DELANO CARE PHYSICI AN: FRANCISCO JAVIER REYNOLDS MD\.br\ ORDERIN G PHYSICI AN: FRANCISCO JAVIER REYNOLDS MD\.br\ EXAM REQUEST ED: [id number]-- CT HEAD/BR AIN W/O CONTRAS T\.br\F ACILITY : [facility] d\.br\D ATE: 4\.br\R ADIOLOG IST NAME: Vicki Vidal MD\.br\ TECHNIQ UE:\.br \Noncon trast exam\.b r\CLINI BLANCA HISTORY :\.br\S EIZURE, UNRESPO NSIVE\. br\FIND INGS:\. br\\.br \No abnorma l density is seen. Ventric les are normal. There is no hemorrh age. No\.br\ mass effect is seen.\. br\\.br \Bone windows show no evidenc e of fractur e.\.br\ \.br\IM PRESSIO N:\.br\ \.br\No acute finding s\.br\A uthenti cated by Vicki Vidal MD on 4 4:28:36 PM\.br\ \.br\\. br\\.br \\.br\\ .br\\.b r\\.br\ \.br\\. br\\.br \\.br\\ .br\\.b r\\.br\ \.br\\. br\\.br \\.br\D ICTATED BY: [facility] [place]\. br\DICT ATED DATE/TI ME: 4 1628\.b r\TRANS CRIBED DATE/TI ME: 4 1628\.b r\\.br\ CC:\.br \ TRIAGE DRUG SCREEN Observa Value Referen Units Interpr Notes Date tion ce etation Range TRIAGE . No Normal Limitat Sep 6 NOTE informa ions of 2013 tion in this 3:36 PM source procedu data re include the possibi lityof false positiv es due to interfe rring substan cesin the urine sample. Clinica l data should becorre lated with any questio nable result and confirm edwith another methodo logy other than immunoa ssaysuc h as HPLC or GCMS. CANNABI Negativ NEGATIV No Normal No Sep 6 NOID e E informa informa 2013 SCREEN, tion in tion in 3:51 PM URINE source source data data PHENCYC Negativ NEGATIV No Normal No Sep 6 LIDINE e E informa informa 2013 SCREEN, tion in tion in 3:51 PM URINE source source data data COCAINE Negativ NEGATIV No Normal No Sep 6 e E informa informa 2013 SCREEN, tion in tion in 3:51 PM URINE source source data data METHAMP Negativ NEGATIV No Normal No Sep 6 HETAMIN e E informa informa 2013 E, tion in tion in 3:51 PM URINE source source data data OPIATE Negativ NEGATIV No Normal No Sep 6 SCREEN, e E informa informa 2013 URINE tion in tion in 3:51 PM source source data data AMPHETA Negativ NEGATIV No Normal No Sep 6 MINE e E informa informa 2013 SCREEN, tion in tion in 3:51 PM URINE source source data data BENZODI PRESUMP NEGATIV No Normal No Sep 6 AZEPINE TIVE E informa informa 2013 S POSITIV tion in tion in 3:51 PM SCREEN, E source source URINE data data TRICYCL Negativ NEGATIV No Normal No Sep 6 IC e E informa informa 2014 ANTIDEP tion in tion in 3:51 PM RESSANT source source ,URINE data data METHADO Negativ NEGATIV No Normal No Sep 6 NE, e E informa informa 2014 URINE tion in tion in 3:51 PM source source data data BARBITU Negativ NEGATIV No Normal No Sep 6 RATES e E informa informa 2013 SCREEN tion in tion in 3:51 PM source source data data OXYCODO Negativ NEGATIV No Normal No Sep 6 NE, UR e E informa informa 2014 tion in tion in 3:51 PM source source data data PROPOXY Negativ NEGATIV No Normal No Sep 6 PHENE e E informa informa 2014 SCREEN tion in tion in 3:51 PM source source data data BUPRENO Negativ NEGATIV No Normal No Sep 6 RPHINE e E informa informa 2014 SCREEN tion in tion in 3:51 PM source source data data URINALYSIS/REFLEX TO UC Observa Value Referen Units Interpr Notes Date tion ce etation Range COLOR,U Yellow . No Normal No Sep 6 RINE informa informa 2013 tion in tion in 3:41 PM source source data data APPEARA Slightl . No Normal No Sep 6 NCE,URI y informa informa 2013 NE Cloudy tion in tion in 3:41 PM source source data data GLUCOSE Negativ NEGATIV No Normal No Sep 6 , URINE e E informa informa 2013 (UA) tion in tion in 3:41 PM source source data data BILIRUB Negativ NEGATIV No Normal No Sep 6 IN,URIN e E informa informa 2014 E tion in tion in 3:41 PM source source data data KETONES Trace NEGATIV No Normal No Sep 6 ,URINE E informa informa 2014 tion in tion in 3:41 PM source source data data SPECIFI >=1.030 1.003 - No Normal No Sep 6 C 1.035 informa informa 2014 GRAVITY tion in tion in 3:41 PM ,URINE source source data data URINE Moderat NEGATIV No Normal No Sep 6 BLOOD e E informa informa 2013 tion in tion in 3:41 PM source source data data URINE 5.0 5.0 - No Normal No Sep 6 pH 8.0 informa informa 2014 tion in tion in 3:41 PM source source data data PROTEIN 2+ NEGATIV No Normal No Sep 6 ,URINE E informa informa 2014 DIP tion in tion in 3:41 PM source source data data UROBILI 1.0 0.2 No Normal No Sep 6 NOGEN,U informa informa 2014 RINE tion in tion in 3:41 PM source source data data NITRATE Negativ NEGATIV No Normal No Sep 6 ,URINE e E informa informa 2014 tion in tion in 3:41 PM source source data data LEUKOCY Negativ NEGATIV No Normal No Sep 6 TE e E informa informa 2014 ESTERAS tion in tion in 3:41 PM E source source ,URINE data data WBC, 0-3 0 - 3 No Normal No Sep 6 URINE informa informa 2014 tion in tion in 3:49 PM source source data data RBC,URI 0-3 0 - 3 No Normal No Sep 6 NE informa informa 2014 tion in tion in 3:49 PM source source data data EPITHEL 0-3 0 - 3 No Normal No Sep 6 IAL informa informa 2014 CELL, tion in tion in 3:49 PM URINE source source data data BACTERI 1+ NONE No Normal No Sep 6 A,URINE SEEN informa informa 2013 tion in tion in 3:49 PM source source data data MUCUS,U TRACE NONE No Normal No Sep 6 RINE SEEN informa informa 2013 tion in tion in 3:49 PM source source data data AMORPHO TRACE . No Normal No Sep 6 US informa informa 2014 SEDIMEN tion in tion in 3:49 PM T,UR source source data data HYALINE 0-3 . No Normal No Sep 6 CASTS, informa informa 2014 URINE tion in tion in 3:50 PM source source data data UPREG Observa Value Referen Units Interpr Notes Date tion ce etation Range UPREG NEGATIV . No Normal No Sep 6 E informa informa 2013 tion in tion in 3:44 PM source source data data CBC W/AUTO Observa Value Referen Units Interpr Notes Date tion ce etation Range WBC 16.6 4.8 - THOUS High No Sep 6 10.8 informa 2013 tion in 3:17 PM source data RBC 4.98 4.20 - m/uL Normal No Sep 6 5.40 2013 tion in 3:17 PM source data HGB 13.9 12.0 - g/dL Normal No Sep 6 16.0 2013 tion in 3:17 PM source data HCT 42 37 - 47 % Normal No Sep 6 inform2013 tion in 3:17 PM source data MEAN 84.2 81.0 - fL Normal No Sep 6 CORPUSC 99.0 2013 ULAR tion in 3:17 PM VOLUME source data MEAN 27.9 27.0 - uug Normal No Sep 6 CORPUSC 31.0 2013 ULAR tion in 3:17 PM HEMOGLO source BIN data MEAN 33.2 30.0 - g/dL Normal No Sep 6 CORPUSC 37.0 2013 ULAR tion in 3:17 PM HGB source CONC data RED 13.0 11.5 - % Normal No Sep 6 CELL 14.5 2013 DISTRIB tion in 3:17 PM UTION source WIDTH data PLATELE 353 130 - THOUS Normal No Sep 6 T COUNT 400 2013 tion in 3:17 PM source data NEUTROP 78.8 37.0 - % Normal No Sep 6 HILS % 80.0 2013 (AUTO) tion in 3:17 PM source data LYMPHOC 13.7 10.0 - % Normal No Sep 6 YTES % 50.0 2013 (AUTO) tion in 3:17 PM source data MONOCYT 6.8 0.0 - % Normal No Sep 6 ES % 12.0 2013 (AUTO) tion in 3:17 PM source data EOSINOP 0.3 0.0 - % Normal No Sep 6 HILS % 7.0 2013 (AUTO) tion in 3:17 PM source data BASOPHI 0.40 0.00 - % Normal No Sep 6 LS % 2.50 inform2013 (AUTO) tion in 3:17 PM source data NEUTROP 13.10 2.00 - THOUS High No Sep 6 HILS # 6.90 inform2013 (AUTO) tion in 3:17 PM source data LYMPHOC 2.30 0.60 - THOUS Normal No Sep 6 YTES # 3.40 inform2013 (AUTO) tion in 3:17 PM source data MONOCYT 1.10 0.00 - THOUS High No Sep 6 ES # 0.90 informa 2013 (AUTO) tion in 3:17 PM source data EOSINOP 0.00 0.00 - THOUS Normal No Sep 6 HILS # 0.70 informa 2013 (AUTO) tion in 3:17 PM source data BASOPHI 0.10 0.00 - THOUS Normal No Sep 6 LS # 0.20 informa 2013 (AUTO) tion in 3:17 PM source data TFRT Observa Value Referen Units Interpr Notes Date tion ce etation Range TEXT \.br\BA No No No No October 29 DIAGNOS PTIST informa informa informa informa 2012 [facility] tion in tion in tion in tion in 1:22 PM [facility] source source source source D\.br\8 data data data data [facility] \ .br\[place] [address]\. br\\.br \RADIOL OGY\.br \Diagno stic Imaging Report : \.br\ Signed\ .br\\.b r\[place]: [place] [address]\. br\ 649\.br \: 971 L0C: ED\.br\ AGE/SEX : 42 / F DATE: 3\.br\\ .br\ORD ERING PHYSICI AN: BOB EVERSOL E\.br\P ROCEDUR E(s): TIBIA/F IBULA RIGHT\. br\ORDE R NUMBER( s): [id number] 13\.br\ PRIMARY CARE PHYSICI AN: BERNARDA VILLAGOMEZ MD\.br\ \.br\\. br\\.br \\.br\F INAL REPORT\ .br\NAM E: JENN, COURTNEY\.b r\: 971\.br \ID#: [id number] 649\.br \ORDER# : [id number] 13\.br\ ACCESSI ON#: [id number] 13\.br\ 09132\. br\PRIM DELANO CARE PHYSICI AN: AASHISH GRANT MD\.br\ ORDERIN G PHYSICI AN: AASHISH GRANT MD\.br\ EXAM REQUEST ED: [id number]-- TIBIA FIBULA 2 VIEWS RIGHT TIB/FIB \.br\FA CILITY: [facility] d\.br\D ATE: 10/30/19 13\.br\ RADIOLO GIST NAME: Jamil ascencio MD\.br\ CLINICA L HISTORY :\.br\I NJURY\. br\FIND INGS:\. br\RIGH T TIB-FIB :\.br\A P and lateral views of the right tibia and fibula demonst rate an age\.br \indete rminate nondisp laced fractur e of the proxima l fibula. \.br\IM PRESSIO N:\.br\ Age indeter minate fractur e as above\. br\Auth enticat ed by Jamil ascencio MD on 10/30/19 13 1:22:33 PM\.br\ \.br\\. br\\.br \\.br\\ .br\\.b r\\.br\ \.br\\. br\\.br \\.br\\ .br\\.b r\\.br\ \.br\DI CTATED BY: [facility] [place]\. br\DICT ATED DATE/TI ME: 3 1322\.b r\TRANS CRIBED DATE/TI ME: 3 1322\.b r\\.br\ CC:\.br \ ANKRT Observa Value Referen Units Interpr Notes Date tion ce etation Range TEXT \.br\BA No No No No October 29 DIAGNOS PTIST informa informa informa informa 2012 [facility] tion in tion in tion in tion in 1:21 PM [employer] source source source source D\.br\8 data data data data \ .br\[place] [address]\. br\\.br \RADIOL OGY\.br \Diagno stic Imaging Report : [id number] 23\.br\ Signed\ .br\\.b r\[place]: [place] [address]\. br\ 649\.br \: 971 L0C: ED\.br\ AGE/SEX : 42 / F DATE: 3\.br\\ .br\ORD ERING PHYSICI AN: BOB ORTIZ E\.br\P ROCEDUR E(s): ANKLE RIGHT\. br\ORDE R NUMBER( s): [id number] 12\.br\ PRIMARY CARE PHYSICI AN: BERNARDA VILLAGOMEZ MD\.br\ \.br\\. br\\.br \\.br\F INAL REPORT\ .br\NAM E: COURTNEY BARAJAS\.b r\: 971\.br \ID#: [id number] 649\.br \ORDER# : [id number] 12\.br\ ACCESSI ON#: [id number] 12\.br\ 47[address]\. br\PRIM DELANO CARE PHYSICI AN: AASHISH GRANT MD\.br\ ORDERIN G PHYSICI AN: AASHISH GRANT MD\.br\ EXAM REQUEST ED: [id number]-- ANKLE MIN 3 VIEWS RIGHT ANKLE\. br\FACI LITY: [facility] d\.br\D ATE: 10/30/19 13\.br\ RADIOLO GIST NAME: Jamil ascencio MD\.br\ CLINICA L HISTORY :\.br\I NJURY\. br\FIND INGS:\. br\RIGH T ANKLE:\ .br\3 views of the right ankle were obtaine d without compari son. There is prior foot\.b r\amput ation to the region of the midfoot . There is a displac ed bimalle olar\.b r\fract ure with lateral displac ement of the distal fractur e fragmen ts.\.br \IMPRES JAIDEN: Bimalle olar fractur e as above\. br\Auth enticat ed by Jamil ascencio MD on 10/30/19 13 1:21:54 PM\.br\ \.br\\. br\\.br \\.br\\ .br\\.b r\\.br\ \.br\\. br\\.br \\.br\\ .br\\.b r\\.br\ \.br\DI CTATED BY: [facility] [place]\. br\DICT ATED DATE/TI ME: 3 1321\.b r\TRANS CRIBED DATE/TI ME: 3 1321\.b r\\.br\ CC:\.br \
--- OUTSIDE RECORDS SUMMARY | 2016-11-21 15:09 | External Medical Summary Rpt ---
Author Author MAS[employer]OD Elder, [employer] Organization [employer] Address Unknown Phone [...] Notes Date tion ce etation Range TEXT CHURCH No No No No Aug 14 [facility] informa informa informa informa 2014 IS tion in tion in tion in tion in 11:38 [facility] source source source source AM D\.br\8 data data data data [facility]\ .[place] [address]\. br\019- 937-313 1\.br\\ .br\Karina gn[facility] Imaging Report\ .br\031 4-0023\ .br\\.b r\Yumiko d\.br\\ .br\PAT IENT NAME: VIC BARAJAS 649\.br \: 971 01131\. br\ATTE NDING: DATE OF EXAM: 5\.br\P RIMARY CARE: UNKNOWN PHYSICI AN LOCATIO N:\.br\ \.br\OR DERING PHYSICI AN: EDDI DAVALOS MD\.b r\PROCE DURE(s) : SHOULDE R RIGHT\. br\ORDE R NUMBER( s): [id number] 80\.br\ \.br\CC :\.br\\ .br\\.b r\\.br\ \.br\EX AM: [...] red final.\ .br\\.b r\\.br\ JOSE/[id number] 670\.br \Job#:[id number] / [id number]\ .br\\.b r\DICTA BILLY BY: SIOBHAN WILLS MD\.br\ DICTATE D DATE/TI ME: 5 1138\.b r\TRANS CRIBED DATE/TI ME: 5 1254\.b r\\.br\ CC:\.br \ HUMRT Observa Value Referen Units Interpr Notes Date tion ce etation Range TEXT CHURCH No No No No Aug 14 [facility] informa informa informa informa 2014 IS tion in tion in tion in tion in 11:38 [facility] source source source source AM D\.br\8 data data data data \ .br\[place] [address]\. br\859- 623-313 1\.br\\ .br\Karina gnostic Imaging Report\ .br\ 42\ .br\\.b r\Yumiko d\.br\\ .br\PAT IENT NAME: VIC BARAJAS 649\.br \: 971 00333\. br\ATTE NDING: DATE OF EXAM: 5\.br\P RIMARY CARE: UNKNOWN PHYSICI AN LOCATIO N:\.br\ \.br\OR DERING PHYSICI AN: EDDI DAVALOS MD\.b r\PROCE DURE(s) : HUMERUS RIGHT\. br\ORDE R NUMBER( s): [id number] 79\.br\ \.br\CC :\.br\\ .br\\.b r\\.br\ \.br\EX AM: [...] Notes Date tion ce etation Range TEXT CHURCH No No No No Sep 7 [facility] informa informa informa informa 2013 IS tion in tion in tion in tion in 1:28 PM [facility] source source source source D\.br\8 data data data data [facility] \ .[place] [address]\. br\240- 983-811 1\.br\\ .br\Karina gnostic Imaging Report\ .br\090 7-0070\ .br\\.b r\Yumiko d\.br\\ .br\PAT IENT NAME: VIC BARAJAS 649\.br \: 971 79396\. br\ATTE NDING: DATE OF EXAM: 4\.br\P RIMARY CARE: UNKNOWN PHYSICI AN LOCATIO N:\.br\ \.br\OR DERING PHYSICI AN: FRANCISCO JAVIER REYNOLDS MD\.br\ PROCEDU RE(s): CHEST PORTABL E\.br\O RDER NUMBER( s): [id number] 22\.br\ \.br\CC :\.br\\ .br\\.b r\\.br\ \.br\EX AM: [...] Notes Date tion ce etation Range TEXT CHURCH No No No No Sep 6 [facility] informa informa informa informa 2013 IS tion in tion in tion in tion in 4:28 PM [facility] source source source source D\.br\8 data data data data [place] \ [place] [address]\. br\377- 623-313 1\.br\\ .br\Karina gnostic Imaging Report\ .br\090 7-0023\ .br\\.b r\Yumiko d\.br\\ .br\PAT IENT NAME: VIC BARAJAS 649\.br \: 971 77158\. br\ATTE NDING: DATE OF EXAM: 4\.br\P RIMARY CARE: UNKNOWN PHYSICI AN LOCATIO N:\.br\ \.br\OR DERING PHYSICI AN: FRANCISCO JAVIER REYNOLDS MD\.br\ PROCEDU RE(s): HEAD WITHOUT CONTRAS T\.br\O RDER NUMBER( s): [id number] 24\.br\ \.br\CC :\.br\\ .br\\.b r\\.br\ \.br\FI NAL REPORT\ .br\NAM E: COURTNEY BARAJAS\.br\D OB: 971\.br \ID#: [id number] 649\.br \ORDER# : [id number] 24\.br\ ACCESSI ON#: [id number] 24\.br\ 479[address]\. br\PRIM DELANO CARE PHYSICI AN: FRANCISCO JAVIER REYNOLDS MD\.br\ ORDERIN G PHYSICI AN: FRANCISCO JAVIER REYNOLDS MD\.br\ EXAM REQUEST ED: [id number]-- CT HEAD/BR AIN W/O CONTRAS T\.br\F ACILITY : [facility] d\.br\D ATE: 4\.br\R ADIOLOG IST NAME: [...] data data [place] \ [place] [address]\. br\\.br \RADIOL OGY\.br \Diagno stic Imaging Report : \.br\ Signed\ .br\\.b r\[place]: [place] [address]\. br\ 649\.br \: 971 L0C: ED\.br\ AGE/SEX : 42 / F DATE: 3\.br\\ .br\ORD ERING PHYSICI AN: BOB EVERSOL E\.br\P ROCEDUR E(s): TIBIA/F IBULA RIGHT\. br\ORDE R NUMBER( s): [id number] 13\.br\ PRIMARY CARE PHYSICI AN: BERNARDA VILLAGOMEZ MD\.br\ \.br\\. br\\.br \\.br\F INAL REPORT\ .br\NAM E: JENN, COURTNEY\.b r\: 971\.br \ID#: [id number] 649\.br \ORDER# : [id number] 13\.br\ ACCESSI ON#: [id number] 13\.br\ 74772\. br\PRIM DELANO CARE PHYSICI AN: AASHISH GRANT MD\.br\ ORDERIN G PHYSICI AN: AASHISH GRANT MD\.br\ EXAM REQUEST ED: [id number]-- TIBIA FIBULA 2 VIEWS RIGHT TIB/FIB \.br\FA CILITY: [employer] d\.br\D ATE: 10/30/19 13\.br\ RADIOLO GIST NAME: [...] in tion in tion in 1:21 PM [facility] 123 source source source source D\.br\8 data data data data \ .br\ZIA MARY JO RENNER [id number]\. br\\.br \RADIOL OGY\.br \Diagno stic Imaging Report : [id number] 23\.br\ Signed\ .br\\.b r\[place]: [place] [address]\. br\ 649\.br \: 971 L0C: ED\.br\ AGE/SEX : 42 / F DATE: 3\.br\\ .br\ORD ERING PHYSICI AN: BOB ORTIZ E\.br\P ROCEDUR E(s): ANKLE RIGHT\. br\ORDE R NUMBER( s): [id number] 12\.br\ PRIMARY CARE PHYSICI AN: BERNARDA VILLAGOMEZ MD\.br\ \.br\\. br\\.br \\.br\F INAL REPORT\ .br\NAM E: COURTNEY BARAJAS\.b r\: 971\.br \ID#: [id number] 649\.br \ORDER# : [id number] 12\.br\ ACCESSI ON#: [id number] 12\.br\ 89145\. br\PRIM DELANO CARE PHYSICI AN: AASHISH GRANT MD\.br\ ORDERIN G PHYSICI AN: AASHISH GRANT MD\.br\ EXAM REQUEST ED: 35494-- ANKLE MIN 3 VIEWS RIGHT ANKLE\. br\FACI LITY: [facility] d\.br\D ATE: 10/30/19 13\.br\ RADIOLO GIST [...]
--- NOTE | 2016-11-21 15:41 | RADIOLOGY REPORT PS360 ---
CT CERVICAL SPINE W/O CONT CT THORACIC SPINE W/O CONTRAST, Ordering Physician: Iraida Glaser MD Patient Age: 46 years: Female HISTORY: FALLthoracic pain. Neck pain. TECHNIQUE: Helical CT scanning performed through the cervical spine process right thoracic spine with sagittal and coronal CT reconstructions of each area on CT workstation FINDINGS No previous for comparison ...... CT CERVICAL SPINE Normal alignment. Cervical vertebral bodies are intact with no fracture nor subluxation. Facets with normal relationships no foramen patent. Spinous processes intact. Prevertebral soft tissues normal. Alignment normal. Base of skull intact. The visualized nasal sinuses unremarkable. C1-C2 relationships appear normal. Incidental note is made densely calcified 7 mm nodule at the posterior right lobe thyroid.. This large dense calcification pattern most likely reflects a benign nodule/adenoma. [place] of lungs clear . Scattered small moderate nodes throughout the neck most evident nodes seen overlying the right submandibular gland measure up to 12 mm size. IMPRESSION Cervical spine intact with no fracture nor subluxation. Normal alignment. ... CT THORACIC SPINE... No definitive acute compression fracture thoracic spine.. There is mild central superior endplate cavity at T2 and T3 appears reflect generous Schmorl's node feature, with minor endplate variations. I see no sclerosis nor evidence impaction or other features to some support acute superior endplate compression injury. No cortical step-off anteriorly present addition be persistent pain at this level be persistent pain suggest MR to further evaluate The remaining thoracic vertebral bodies are unremarkable. Intact. The disc spaces are fairly well-maintained throughout the thoracic spine. The ribs adjacent to the T-spine appear intact Continue below the thoracic spine into the upper lumbar spine, note that there is a minor nondisplaced fracture of the left L1 transverse process. Axial image 68 and 69. There is mild levocurvature of the lower thoracic spine and subtle dextrocurvature of the mid thoracic spine. Anterior marginal osteophytes to the right throughout the mid to upper T-spine. The included portions mediastinal shows no mediastinal nor hilar adenopathy nor mass of concern. Mild dependent basilar atelectasis.. ... IMPRESSION: 1. Nondisplaced fracture left L1 Transverse process incidentally noted on the inferior most slices of this CT thoracic spine study. 2 . No acute fractures of the thoracic spine otherwise seen. 3. Mild Schmorl's node concavity centrally aspect T3 and T4 superior endplates I believe account for appearance here.. (If there is persistent pain at the upper thoracic spine the MR may be warranted to further exclude any subtle acute injury at this level)
--- NOTE | 2016-11-21 15:45 | RADIOLOGY REPORT PS360 ---
CT HEAD WITHOUT CONTRAST CT BONE WINDOWS included ORDERING PHYSICIAN : Iraida Glaser MD PATIENT AGE: 46 years GENDER: Female PROCEDURE: Routine axial images head with brain & bone windows HISTORY: FALL. The left. Unable to give history. Head injury. Neck back pain. Headache. COMPARISON: No previous for comparison FINDINGS:-------- No acute intracranial findings. No hemorrhage. No mass effect or mass lesion. No subdural nor extra-axial collection. Ventricles & basal cisterns appear satisfactory. Bella and white matter patterns satisfactory. The posterior fossa appear satisfactory and unremarkable. . Skull is intact but with diffuse prominent thickness of the skull is noted. The visualized portions of the paranasal sinuses are clear. Mastoid air cells, middle ear & IACs are unremarkable. Incidentally noted Calcification posterior aspect of the globes bilaterally reflecting optic drusen calcification. Head with asymmetric position within CT scanner, which most likely accounts for prominent soft tissues overlying the left parietal region. Clinical correlation required as this could reflect scalp contusion. IMPRESSION: No acute intracranial findings. Minor observations in text .
--- NOTE | 2016-11-21 16:25 | RADIOLOGY REPORT PS360 ---
HUMERUS-LT Ordering Physician: Iraida Glaser MD Patient Age: 46 years: Female HISTORY: FALL left humerus pain. Multiple injuries TECHNIQUE: 2 view left humerus FINDINGS The left humerus appears intact with no fracture evident. Projected over proximal humerus continues into adjacent soft tissues. The left humeral head and neck intact. The humeral joint intact. AC joint upper normal width. IMPRESSION: Left humerus intact no fracture
--- NOTE | 2016-11-21 16:37 | RADIOLOGY REPORT PS360 ---
PELVIS AP ONLY Ordering Physician: Iraida Glaser MD Patient Age: 46 years: Female HISTORY: FALL multiple injuries pelvic pain transverse process fracture on CT TECHNIQUE: AP pelvis FINDINGS Osseous pelvis is intact with no fracture evident. AP view of hips appear intact remainder pelvis intact SI joints unremarkable. Generous gas is in the nondilated sigmoid colon. Otherwise unremarkable abdomen malleolus pelvic basin.. IMPRESSION: Osseous pelvis intact no fracture. AP Hips intact on this image
--- NOTE | 2016-11-21 16:37 | RADIOLOGY REPORT PS360 ---
CHEST-AP VIEW ONLY Ordering physician: Iraida Glaser MD Age: 46 years Female INDICATION: Fall with chest painFALL PROCEDURE: CHEST-AP VIEW ONLY FINDINGS: No prior . nothing definitely acute. No pneumothorax. No pleural effusion. No obvious rib fractures. Suboptimal expansion diaphragm is only down to the anterior fourth rib with mild elevation right hemidiaphragm. Heart sol and mediastinal structures satisfactory overall for AP supine study. No acute findings are seen at the medial/posterior chest on today's CT thoracic spine . IMPRESSION ----- Nothing definite acute at chest Heart upper normal size
--- NOTE | 2016-11-21 16:38 | RADIOLOGY REPORT PS360 ---
[id number] [id number] Ordering Physician: Iraida Glaser MD Patient Age: 46 years: Female HISTORY: FALLleft shoulder pain TECHNIQUE: 3 views left shoulder FINDINGS Glenohumeral joint intact. Humeral head and neck appear to be intact with no acute fracture. . Note a slightly accentuated contour at the surgical neck but this may reflect old injury I see no convincing acute fracture. There is slight roughening at the cap of the greater tuberosity which appears to reflect minor degenerative change. Relative narrowed subacromial space which may reflect impingement anatomy. AC joint intact IMPRESSION No acute fracture left shoulder. Trace degenerative changes. Question old injury. Slight narrowing subacromial may reflect developing impingement anatomy..
--- NOTE | 2016-11-21 16:53 | RADIOLOGY REPORT PS360 ---
CT LUMBAR SPINE W/O CONTRAST Ordering Physician: Iraida Glaser MD Patient Age: 46 years: Female HISTORY: FALL, L1 TRANSVERSE PROCESS FX NOTED ON T-SPINE CT TECHNIQUE: Helical CT scanning performed through the lumbar spine with sagittal coronal reconstructions on CT workstation. FINDINGS The lumbar vertebral bodies appear intact with no compression fracture.. No significant area at T12 most likely benign hemangioma However we do see multiple transverse process fractures involving L1, L2, L3, L4. Only L3 transverse process demonstrate slight anterior displacement otherwise are basically nondisplaced fractures. We performed additional reconstruction views from the T-spine study which with close inspection does reveal additional rib irregularities. I suspect a subtle 12th rib fracture near its tip as well as medial. Left 11th rib Slight contour variation posterior question microfracture. Suspect Left 10th rib with the subtle hairline fracture mid posterior rib. Suspect. No displacement..q . IMPRESSION: ... 1. Multiple multiple left transverse process fractures involving L1, L2, L3 and L4. . Only L3 transverse process demonstrate slight anterior offset and displacement 2. On additional reconstruction views of T-spine along these current lumbar spine studies would also note . Subtle acute fracture involving the 12th rib, both towards its posterior tip as well as likely medial.. .Also Suspect acute acute 10th rib fracture. .Question possible hairline fracture at the posterior 11th rib. & [id number] rib although these are equivocal with only very subtle osseous irregularities here
[2016-11-21] MEDS ORDERED: PERCOCET 325 MG1 TA4 PO (17:05)
[2016-11-21 18:59] VITALS: BP 106/56
[2016-11-24] MEDS ORDERED: RISPERDAL2 M1 PO (12:03)
[2016-11-24] MEDS ORDERED: AVPAK PRIMIDONE50 MG PO (12:04)
[2016-11-24] MEDS ORDERED: LAMICTAL 100 M100 MG PO (12:05)
[2016-11-24] MEDS ORDERED: TOPAMAX200 MG PO (12:05)
[2016-11-24] MEDS ORDERED: LAMICTAL25 MG PO (12:06)
[2016-11-24] MEDS ORDERED: DEPAKOTE500 M1 PO (12:07)
[2016-11-24] MEDS ORDERED: DEPAKOTE 500MG500 MG PO (14:52)
[2016-11-25] MEDS ORDERED: PRIMIDONE50 MG PO (08:27)
[2016-11-25] MEDS ORDERED: INDERAL 20MG. T20 MG PO (08:27)
== END 2016-11-21 18:59 | disposition home or self-care (01) ==
LOC: ER 14:28
DX: S22.42XA Multiple fractures of ribs, left side, initial encounter for closed fracture (principal); W10.9XXA Fall (on) (from) unspecified stairs and steps, initial encounter; S32.008A Other fracture of unspecified lumbar vertebra, initial encounter for closed fracture